=== PATIENT | female | born 1960 | race Caucasian/White ===

== ENCOUNTER 2017-10-19 00:55 | Inpatient (IN) | payer OTHER, MEDICAID ==
[2017-10-19] MEDS ORDERED: ONDANSETRON 4 MG INJ IV (03:30)
[2017-10-19 06:52] LABS: ADD MAN DIFF? NO
[2017-10-19 06:58] LABS: WHITE BLOOD COUNT 18.8 10^3/ul (4.8-10.8)
[2017-10-19 06:58] LABS: BASOPHIL # 0.1 10^3/ul (0.0-0.1); BASOPHILS % 0.3 % (0.0-2.0); EOSINOPHILS # 0.1 10^3/ul (0.0-0.5); EOSINOPHILS % 0.6 % (0.0-7.0); HEMATOCRIT 29.2 % (37.0-47.0); HEMOGLOBIN 9.2 g/dl (12.0-16.0); LYMPHOCYTES % 5.2 % (15.0-51.0); MEAN CORPUSCULAR HEMOGLOBIN 25.3 pg (29.0-33.0); MEAN CORPUSCULAR HGB CONC 31.5 g/dl (32.0-37.0); MEAN CORPUSCULAR VOLUME 80.2 fl (82.0-101.0); MEAN PLATELET VOLUME 9.1 fl (7.4-10.4); MONOCYTE # 1.4 10^3/ul (0.3-0.9); MONOCYTES % 7.5 % (0.0-11.0); NEUTROPHIL # 16.1 10^3/ul (1.6-7.5); NEUTROPHILS % 85.8 % (39.0-77.0); PLATELET COUNT 428 10^3/UL (140-415); RED BLOOD COUNT 3.64 10^6/ul (4.20-5.40); RED CELL DISTRIBUTION WIDTH 17.3 % (11.5-14.5)
[2017-10-19 07:19] LABS: ALANINE AMINOTRANSFERASE 20 IU/L (13-69); ALBUMIN 2.8 g/dl (3.3-4.9); ALKALINE PHOSPHATASE 79 IU/L (42-121); ANION GAP 9 (8-16); ASPARTATE AMINO TRANSFERASE 16 IU/L (15-46); BILIRUBIN,INDIRECT 0.3 mg/dl (0-1.1); BILIRUBIN,TOTAL 0.3 mg/dl (0.2-1.3); BLOOD UREA NITROGEN 17 mg/dl (7-20); CALCIUM 8.7 mg/dl (8.4-10.2); CARBON DIOXIDE 27 mmol/L (21-31); CHLORIDE 105 mmol/L (97-110); CREATININE 0.89 mg/dl (0.44-1.00); GLUCOSE 108 mg/dl (70-220); MAGNESIUM 1.8 mg/dl (1.7-2.5); PHOSPHORUS 3.6 mg/dl (2.5-4.9); POTASSIUM 4.4 mmol/L (3.5-5.1); SODIUM 137 mmol/L (135-144); TOTAL PROTEIN 6.8 g/dl (6.1-8.1)
[2017-10-19] MEDS: HEPARIN 5,000 UNIT/0.5 ML VIAL SC ×2 (08:40→21:31)
[2017-10-19] MEDS: AMLODIPINE 5 MG TAB PO (08:41)
[2017-10-19] MEDS: HYDROCODONE/APAP (5/325) TAB PO ×3 (08:42→21:42)
[2017-10-19] MEDS: SOD CHLORIDE 0.9% 1,000 ML IV (14:52)
[2017-10-19] MEDS ORDERED: IOHEXOL 14.3 MG(I)/ML (ADULT) BTL PO (15:00)
[2017-10-19] MEDS: BARIUM SULF 2% 450 ML BTL (BERRY SMOOTHIE) PO (15:00)
[2017-10-19 15:49] LABS: RETICULOCYTE COUNT # 0.044 X10^6 (0.020-0.110); RETICULOCYTE COUNT % 1.2 % (0.5-1.5)
[2017-10-19 15:49] LABS: RETICULOCYTE RBC 3.57
[2017-10-19 17:14] LABS: FOLATE 18.2 ng/ml (2.8-20.0)
[2017-10-19 19:40] LABS: OCCULT BLOOD STOOL NEGATIVE (NEGATIVE)
[2017-10-19] MEDS: SOD CHLORIDE 0.9% 100 ML (23:43)
[2017-10-19] MEDS: IOHEXOL 300MG/ML 150 ML BTL (23:43)
[2017-10-20] MEDS: HYDROCODONE/APAP (5/325) TAB PO ×4 (03:50→23:53)
[2017-10-20 06:03] LABS: ADD MAN DIFF? NO
[2017-10-20 06:09] LABS: ABNORMAL IP MESSAGE 1; BASOPHILS % 0.2 % (0.0-2.0); EOSINOPHILS # 0.1 10^3/ul (0.0-0.5); EOSINOPHILS % 0.7 % (0.0-7.0); HEMATOCRIT 25.9 % (37.0-47.0); HEMOGLOBIN 8.3 g/dl (12.0-16.0); LYMPHOCYTES % 5.4 % (15.0-51.0); MEAN CORPUSCULAR HEMOGLOBIN 25.7 pg (29.0-33.0); MEAN CORPUSCULAR VOLUME 80.2 fl (82.0-101.0); MEAN PLATELET VOLUME 9.1 fl (7.4-10.4); MONOCYTE # 1.5 10^3/ul (0.3-0.9); MONOCYTES % 8.3 % (0.0-11.0); NEUTROPHIL # 15.4 10^3/ul (1.6-7.5); NEUTROPHILS % 84.8 % (39.0-77.0); PLATELET COUNT 389 10^3/UL (140-415); RED BLOOD COUNT 3.23 10^6/ul (4.20-5.40); RED CELL DISTRIBUTION WIDTH 17.8 % (11.5-14.5)
[2017-10-20 06:09] LABS: WHITE BLOOD COUNT 18.2 10^3/ul (4.8-10.8)
[2017-10-20 06:23] LABS: POSITIVE DIFF @See below
[2017-10-20 06:44] LABS: ANION GAP 14 (8-16); BLOOD UREA NITROGEN 31 mg/dl (7-20); CALCIUM 8.5 mg/dl (8.4-10.2); CARBON DIOXIDE 24 mmol/L (21-31); CHLORIDE 100 mmol/L (97-110); CREATININE 1.58 mg/dl (0.44-1.00); GLUCOSE 106 mg/dl (70-220); POTASSIUM 4.3 mmol/L (3.5-5.1); SODIUM 134 mmol/L (135-144)
[2017-10-20] MEDS: SOD CHLORIDE 0.9% 1,000 ML IV ×2 (07:10→23:50)
[2017-10-20] MEDS: AMLODIPINE 5 MG TAB PO (07:59)
[2017-10-20] MEDS: HEPARIN 5,000 UNIT/0.5 ML VIAL SC (08:00)
[2017-10-20] MEDS ORDERED: HEPARIN 1000 UNITS/ML 10 ML INJ IV (11:30)
[2017-10-20] MEDS: LEVOFLOXACIN 500MG/D5W (PMX) 100 ML IVPB (12:29)
[2017-10-20 12:31] LABS: IRON 23 ug/dl (35-150)
[2017-10-20 12:40] LABS: % IRON SATURATION 12 % SAT (22-52); TOTAL IRON BINDING CAPACITY 198 ug/dl (241-421)
[2017-10-20 12:42] LABS: INR 1.25; PROTIME 15.9 Sec (11.9-14.9); PT RATIO 1.2
[2017-10-20 12:43] LABS: PARTIAL THROMBOPLASTIN TIME 36.5 Sec (25.0-35.0)
[2017-10-20 13:45] LABS: ADD UMIC NO; UR ASCORBIC ACID NEGATIVE (NEGATIVE); UR BILIRUBIN (Dip) NEGATIVE (NEGATIVE); UR BLOOD (Dip) NEGATIVE (NEGATIVE); UR CLARITY CLEAR (CLEAR); UR COLOR STRAW (YELLOW); UR GLUCOSE (Dip) NEGATIVE (NEGATIVE); UR KETONES (Dip) NEGATIVE (NEGATIVE); UR LEUKOCYTE ESTERASE (Dip) NEGATIVE Leu/ul (NEGATIVE); UR NITRITE (Dip) NEGATIVE (NEGATIVE); UR SPECIFIC GRAVITY (Dip) 1.011 (1.003-1.030); UR TOTAL PROTEIN (Dip) NEGATIVE (NEGATIVE); UR UROBILINOGEN (Dip) NEGATIVE (NEGATIVE)
[2017-10-20] MEDS: HEPARIN 1000 UNITS/ML 10 ML INJ IV (14:14)
[2017-10-20] MEDS: HEPARIN 25000 UNITS/250 ML 250 ML IV ×2 (14:15→21:16)
[2017-10-20 20:36] LABS: PARTIAL THROMBOPLASTIN TIME 68.3 Sec (25.0-35.0)
[2017-10-21] MEDS: SOD CHLORIDE 0.9% 1,000 ML IV ×3 (02:39→22:47)
[2017-10-21 03:31] LABS: ADD MAN DIFF? NO
[2017-10-21 03:47] LABS: ABNORMAL IP MESSAGE 1; BASOPHIL # 0.1 10^3/ul (0.0-0.1); BASOPHILS % 0.3 % (0.0-2.0); EOSINOPHILS # 0.3 10^3/ul (0.0-0.5); EOSINOPHILS % 1.2 % (0.0-7.0); HEMATOCRIT 27.6 % (37.0-47.0); HEMOGLOBIN 8.6 g/dl (12.0-16.0); LYMPHOCYTES # 1.4 10^3/ul (0.8-2.9); LYMPHOCYTES % 6.2 % (15.0-51.0); MEAN CORPUSCULAR HEMOGLOBIN 25.4 pg (29.0-33.0); MEAN CORPUSCULAR HGB CONC 31.2 g/dl (32.0-37.0); MEAN CORPUSCULAR VOLUME 81.4 fl (82.0-101.0); MEAN PLATELET VOLUME 8.9 fl (7.4-10.4); MONOCYTE # 1.6 10^3/ul (0.3-0.9); MONOCYTES % 7.3 % (0.0-11.0); NEUTROPHIL # 18.6 10^3/ul (1.6-7.5); NEUTROPHILS % 84.4 % (39.0-77.0); PLATELET COUNT 441 10^3/UL (140-415); RED BLOOD COUNT 3.39 10^6/ul (4.20-5.40); RED CELL DISTRIBUTION WIDTH 17.9 % (11.5-14.5)
[2017-10-21 03:49] LABS: POSITIVE DIFF @See below
[2017-10-21 03:53] LABS: PARTIAL THROMBOPLASTIN TIME 61.1 Sec (25.0-35.0)
[2017-10-21 03:58] LABS: ANION GAP 17 (8-16); BLOOD UREA NITROGEN 41 mg/dl (7-20); CALCIUM 8.8 mg/dl (8.4-10.2); CARBON DIOXIDE 21 mmol/L (21-31); CHLORIDE 101 mmol/L (97-110); CREATININE 2.64 mg/dl (0.44-1.00); GLUCOSE 101 mg/dl (70-220); POTASSIUM 4.6 mmol/L (3.5-5.1); SODIUM 134 mmol/L (135-144)
[2017-10-21] MEDS: HEPARIN 25000 UNITS/250 ML 250 ML IV ×4 (04:25→23:51)
[2017-10-21] MEDS: HYDROCODONE/APAP (5/325) TAB PO ×4 (04:27→22:46)
[2017-10-21] MEDS: AMLODIPINE 5 MG TAB PO (08:47)
[2017-10-21 11:21] LABS: PARTIAL THROMBOPLASTIN TIME 51.4 Sec (25.0-35.0)
[2017-10-21] MEDS: HEPARIN 1000 UNITS/ML 10 ML INJ IV (12:07)
[2017-10-21] MEDS: LEVOFLOXACIN 250MG/D5W (PMX) 50 ML IVPB (12:45)
[2017-10-21] MEDS: SOD FERRIC GLUC COMPLX 125 MG in SOD CHLORIDE 0.9% 100 ML IVPB (17:59)
[2017-10-21 18:20] LABS: PARTIAL THROMBOPLASTIN TIME 100.4 Sec (25.0-35.0)
[2017-10-21] MEDS: ACETYLCYSTEINE 600 MG CAP PO (20:28)
[2017-10-22 00:57] LABS: PARTIAL THROMBOPLASTIN TIME 108.1 Sec (25.0-35.0)
[2017-10-22] MEDS: HYDROCODONE/APAP (5/325) TAB PO ×5 (02:59→20:14)
[2017-10-22 08:06] LABS: ADD MAN DIFF? NO
[2017-10-22] MEDS: ACETYLCYSTEINE 600 MG CAP PO ×2 (08:09→20:10)
[2017-10-22] MEDS: AMLODIPINE 5 MG TAB PO (08:09)
[2017-10-22 08:13] LABS: WHITE BLOOD COUNT 22.1 10^3/ul (4.8-10.8)
[2017-10-22 08:13] LABS: ABNORMAL IP MESSAGE 1; BASOPHIL # 0.1 10^3/ul (0.0-0.1); BASOPHILS % 0.3 % (0.0-2.0); EOSINOPHILS # 0.1 10^3/ul (0.0-0.5); EOSINOPHILS % 0.4 % (0.0-7.0); HEMATOCRIT 27.1 % (37.0-47.0); HEMOGLOBIN 8.5 g/dl (12.0-16.0); LYMPHOCYTES # 1.1 10^3/ul (0.8-2.9); LYMPHOCYTES % 4.7 % (15.0-51.0); MEAN CORPUSCULAR HEMOGLOBIN 25.8 pg (29.0-33.0); MEAN CORPUSCULAR HGB CONC 31.4 g/dl (32.0-37.0); MEAN CORPUSCULAR VOLUME 82.1 fl (82.0-101.0); MONOCYTE # 1.5 10^3/ul (0.3-0.9); MONOCYTES % 6.8 % (0.0-11.0); NEUTROPHIL # 19.3 10^3/ul (1.6-7.5); PLATELET COUNT 469 10^3/UL (140-415); RED CELL DISTRIBUTION WIDTH 18.1 % (11.5-14.5)
[2017-10-22 08:17] LABS: POSITIVE DIFF @See below
[2017-10-22 08:38] LABS: MAGNESIUM 2.1 mg/dl (1.7-2.5)
[2017-10-22 08:38] LABS: PHOSPHORUS 5.3 mg/dl (2.5-4.9)
[2017-10-22 08:58] LABS: ALANINE AMINOTRANSFERASE 26 IU/L (13-69); ALBUMIN 2.6 g/dl (3.3-4.9); ALKALINE PHOSPHATASE 86 IU/L (42-121); ANION GAP 18 (8-16); ASPARTATE AMINO TRANSFERASE 16 IU/L (15-46); BLOOD UREA NITROGEN 41 mg/dl (7-20); CALCIUM 8.8 mg/dl (8.4-10.2); CARBON DIOXIDE 18 mmol/L (21-31); CHLORIDE 104 mmol/L (97-110); CREATININE 2.98 mg/dl (0.44-1.00); GLUCOSE 97 mg/dl (70-220); POTASSIUM 4.9 mmol/L (3.5-5.1); SODIUM 135 mmol/L (135-144); TOTAL PROTEIN 6.3 g/dl (6.1-8.1)
[2017-10-22 09:06] LABS: PARTIAL THROMBOPLASTIN TIME 100.3 Sec (25.0-35.0)
[2017-10-22] MEDS: SOD CHLORIDE 0.9% 1,000 ML IV ×2 (09:10→16:28)
[2017-10-22 09:40] LABS: OCCULT BLOOD STOOL NEGATIVE (NEGATIVE)
[2017-10-22 16:11] LABS: PARTIAL THROMBOPLASTIN TIME 76.2 Sec (25.0-35.0)
[2017-10-22] MEDS: HEPARIN 25000 UNITS/250 ML 250 ML IV (16:32)
[2017-10-23] MEDS: HYDROCODONE/APAP (5/325) TAB PO ×5 (00:07→20:49)
[2017-10-23 07:04] LABS: ADD MAN DIFF? NO
[2017-10-23 07:07] LABS: WHITE BLOOD COUNT 23.4 10^3/ul (4.8-10.8)
[2017-10-23 07:07] LABS: ABNORMAL IP MESSAGE 1; BASOPHIL # 0.1 10^3/ul (0.0-0.1); BASOPHILS % 0.2 % (0.0-2.0); EOSINOPHILS # 0.1 10^3/ul (0.0-0.5); EOSINOPHILS % 0.2 % (0.0-7.0); HEMATOCRIT 26.4 % (37.0-47.0); HEMOGLOBIN 8.4 g/dl (12.0-16.0); LYMPHOCYTES # 0.7 10^3/ul (0.8-2.9); LYMPHOCYTES % 3.1 % (15.0-51.0); MEAN CORPUSCULAR HEMOGLOBIN 25.8 pg (29.0-33.0); MEAN CORPUSCULAR HGB CONC 31.8 g/dl (32.0-37.0); MEAN CORPUSCULAR VOLUME 81.2 fl (82.0-101.0); MEAN PLATELET VOLUME 8.7 fl (7.4-10.4); MONOCYTE # 1.6 10^3/ul (0.3-0.9); MONOCYTES % 6.6 % (0.0-11.0); NEUTROPHIL # 20.8 10^3/ul (1.6-7.5); PLATELET COUNT 484 10^3/UL (140-415); RED BLOOD COUNT 3.25 10^6/ul (4.20-5.40); RED CELL DISTRIBUTION WIDTH 18.1 % (11.5-14.5)
[2017-10-23 07:08] LABS: POSITIVE DIFF @See below
[2017-10-23 07:28] LABS: PARTIAL THROMBOPLASTIN TIME 63.2 Sec (25.0-35.0); PHOSPHORUS 5.1 mg/dl (2.5-4.9)
[2017-10-23 07:28] LABS: MAGNESIUM 2.1 mg/dl (1.7-2.5)
[2017-10-23 08:04] LABS: ANION GAP 19 (8-16); BLOOD UREA NITROGEN 31 mg/dl (7-20); CALCIUM 9.2 mg/dl (8.4-10.2); CARBON DIOXIDE 18 mmol/L (21-31); CHLORIDE 108 mmol/L (97-110); CREATININE 1.97 mg/dl (0.44-1.00); GLUCOSE 121 mg/dl (70-220); POTASSIUM 5.2 mmol/L (3.5-5.1); SODIUM 140 mmol/L (135-144)
[2017-10-23] MEDS: ACETYLCYSTEINE 600 MG CAP PO ×2 (09:00→20:48)
[2017-10-23] MEDS: AMLODIPINE 5 MG TAB PO (09:00)
[2017-10-23] MEDS: METOPROLOL 5 MG INJ IV ×2 (13:38→20:49)
[2017-10-23] MEDS: HEPARIN 25000 UNITS/250 ML 250 ML IV (13:49)
[2017-10-23] MEDS: SOD CHLORIDE 0.9% 1,000 ML IV (18:30)
[2017-10-23] MEDS: NA POLYST SULFON 15 GM/60 ML BTL PO (20:48)
[2017-10-23 21:01] LABS: PARTIAL THROMBOPLASTIN TIME 82.1 Sec (25.0-35.0)
[2017-10-24] MEDS: HYDROCODONE/APAP (5/325) TAB PO ×4 (01:19→20:21)
[2017-10-24] MEDS: SOD CHLORIDE 0.9% 1,000 ML IV ×2 (01:25→20:31)
[2017-10-24 02:30] LABS: PARTIAL THROMBOPLASTIN TIME 80.9 Sec (25.0-35.0)
[2017-10-24 07:19] LABS: ALANINE AMINOTRANSFERASE 18 IU/L (13-69); ALBUMIN 2.6 g/dl (3.3-4.9); ALBUMIN/GLOBULIN RATIO 0.66; ALKALINE PHOSPHATASE 90 IU/L (42-121); ANION GAP 13 (8-16); ASPARTATE AMINO TRANSFERASE 18 IU/L (15-46); BILIRUBIN,INDIRECT 0.1 mg/dl (0-1.1); BILIRUBIN,TOTAL 0.1 mg/dl (0.2-1.3); BLOOD UREA NITROGEN 30 mg/dl (7-20); CALCIUM 9.2 mg/dl (8.4-10.2); CARBON DIOXIDE 22 mmol/L (21-31); CHLORIDE 111 mmol/L (97-110); CREATININE 1.77 mg/dl (0.44-1.00); GLUCOSE 116 mg/dl (70-220); POTASSIUM 4.4 mmol/L (3.5-5.1); SODIUM 142 mmol/L (135-144); TOTAL PROTEIN 6.5 g/dl (6.1-8.1)
[2017-10-24] MEDS: AMLODIPINE 5 MG TAB PO (08:42)
[2017-10-24] MEDS: LIDOCAINE 1% (MDV) 10 ML INJ (10:09)
[2017-10-24] MEDS: SOD CHLORIDE 0.9% 500 ML ×2 (10:10→10:54)
[2017-10-24] MEDS: IOHEXOL 300MG/ML 150 ML BTL (10:10)
[2017-10-24] MEDS: FENTAnyl 50 MCG/ML VIAL ×2 (10:54)
[2017-10-24] MEDS: MIDAZOLAM 1 MG/ML 2 ML INJ ×2 (10:54)
[2017-10-24 13:10] LABS: PARTIAL THROMBOPLASTIN TIME 36.5 Sec (25.0-35.0)
[2017-10-24] MEDS: HEPARIN 25000 UNITS/250 ML 250 ML IV (14:50)
[2017-10-24] MEDS: BISACODYL (EC) 5 MG TAB PO ×3 (17:39→21:11)
[2017-10-24 18:24] LABS: PARTIAL THROMBOPLASTIN TIME 69.2 Sec (25.0-35.0)
[2017-10-24] MEDS: PEG/ELECTROLYTES 4L BTL PO ×2 (20:20→21:11)
[2017-10-25] MEDS: HYDROCODONE/APAP (5/325) TAB PO ×4 (05:28→23:32)
[2017-10-25] MEDS: HEPARIN 25000 UNITS/250 ML 250 ML IV (05:40)
[2017-10-25] MEDS: AMLODIPINE 5 MG TAB PO (08:36)
[2017-10-25 08:44] LABS: ADD MAN DIFF? NO
[2017-10-25 08:48] LABS: ABNORMAL IP MESSAGE 1; BASOPHIL # 0.1 10^3/ul (0.0-0.1); BASOPHILS % 0.2 % (0.0-2.0); EOSINOPHILS % 0.1 % (0.0-7.0); HEMATOCRIT 22.6 % (37.0-47.0); HEMOGLOBIN 7.3 g/dl (12.0-16.0); LYMPHOCYTES # 1.2 10^3/ul (0.8-2.9); LYMPHOCYTES % 4.9 % (15.0-51.0); MEAN CORPUSCULAR HGB CONC 32.3 g/dl (32.0-37.0); MEAN CORPUSCULAR VOLUME 80.4 fl (82.0-101.0); MEAN PLATELET VOLUME 8.9 fl (7.4-10.4); MONOCYTE # 1.8 10^3/ul (0.3-0.9); MONOCYTES % 7.1 % (0.0-11.0); NEUTROPHIL # 21.5 10^3/ul (1.6-7.5); NEUTROPHILS % 86.8 % (39.0-77.0); PLATELET COUNT 436 10^3/UL (140-415); RED BLOOD COUNT 2.81 10^6/ul (4.20-5.40); RED CELL DISTRIBUTION WIDTH 18.6 % (11.5-14.5)
[2017-10-25 08:48] LABS: WHITE BLOOD COUNT 24.7 10^3/ul (4.8-10.8)
[2017-10-25 09:19] LABS: PHOSPHORUS 4.5 mg/dl (2.5-4.9)
[2017-10-25 09:19] LABS: MAGNESIUM 1.7 mg/dl (1.7-2.5)
[2017-10-25 09:30] LABS: ANION GAP 14 (8-16); BLOOD UREA NITROGEN 27 mg/dl (7-20); CALCIUM 8.5 mg/dl (8.4-10.2); CARBON DIOXIDE 22 mmol/L (21-31); CHLORIDE 110 mmol/L (97-110); CREATININE 1.52 mg/dl (0.44-1.00); GLUCOSE 112 mg/dl (70-220); SODIUM 143 mmol/L (135-144)
[2017-10-25] MEDS: POTASSIUM CHLORIDE 100 ML IVPB ×2 (13:30→15:37)
[2017-10-25] MEDS: PROPOFOL 40 ML (17:03)
[2017-10-25] MEDS: LUBIPROSTONE 24 MCG CAP PO (18:34)
[2017-10-25 18:53] LABS: HEMATOCRIT 23.6 % (37.0-47.0); HEMOGLOBIN 7.3 g/dl (12.0-16.0)
[2017-10-25] MEDS: SOD CHLORIDE 0.9% 1,000 ML IV (20:11)
[2017-10-26] MEDS: HYDROCODONE/APAP (5/325) TAB PO ×4 (07:56→23:50)
[2017-10-26] MEDS: AMLODIPINE 5 MG TAB PO (08:12)
[2017-10-26] MEDS: LUBIPROSTONE 24 MCG CAP PO ×2 (09:49→17:31)
[2017-10-26 11:54] LABS: ADD MAN DIFF? NO
[2017-10-26 12:16] LABS: BASOPHILS % 0.2 % (0.0-2.0); EOSINOPHILS # 0.1 10^3/ul (0.0-0.5); EOSINOPHILS % 0.2 % (0.0-7.0); HEMATOCRIT 23.9 % (37.0-47.0); HEMOGLOBIN 7.3 g/dl (12.0-16.0); LYMPHOCYTES # 1.1 10^3/ul (0.8-2.9); LYMPHOCYTES % 5.2 % (15.0-51.0); MEAN CORPUSCULAR HEMOGLOBIN 25.3 pg (29.0-33.0); MEAN CORPUSCULAR HGB CONC 30.5 g/dl (32.0-37.0); MEAN PLATELET VOLUME 8.8 fl (7.4-10.4); MONOCYTE # 1.4 10^3/ul (0.3-0.9); MONOCYTES % 6.7 % (0.0-11.0); NEUTROPHIL # 18.2 10^3/ul (1.6-7.5); NEUTROPHILS % 86.4 % (39.0-77.0); PLATELET COUNT 421 10^3/UL (140-415); RED BLOOD COUNT 2.88 10^6/ul (4.20-5.40); RED CELL DISTRIBUTION WIDTH 18.8 % (11.5-14.5)
[2017-10-26 12:16] LABS: WHITE BLOOD COUNT 21.1 10^3/ul (4.8-10.8)
[2017-10-26 12:21] LABS: ANION GAP 12 (8-16); BLOOD UREA NITROGEN 20 mg/dl (7-20); CALCIUM 8.5 mg/dl (8.4-10.2); CARBON DIOXIDE 23 mmol/L (21-31); CHLORIDE 110 mmol/L (97-110); CREATININE 1.28 mg/dl (0.44-1.00); GLUCOSE 125 mg/dl (70-220); SODIUM 142 mmol/L (135-144)
[2017-10-26] MEDS: POTASSIUM CHLORIDE 100 ML IVPB ×2 (14:50→16:40)
[2017-10-26] MEDS: SOD FERRIC GLUC COMPLX 125 MG in SOD CHLORIDE 0.9% 100 ML IVPB (16:40)
[2017-10-27] MEDS: HYDROCODONE/APAP (5/325) TAB PO ×4 (03:29→22:56)
[2017-10-27 06:19] LABS: ADD MAN DIFF? NO
[2017-10-27 06:24] LABS: BASOPHILS % 0.2 % (0.0-2.0); EOSINOPHILS # 0.2 10^3/ul (0.0-0.5); EOSINOPHILS % 0.9 % (0.0-7.0); HEMATOCRIT 23.1 % (37.0-47.0); HEMOGLOBIN 7.1 g/dl (12.0-16.0); LYMPHOCYTES # 1.2 10^3/ul (0.8-2.9); LYMPHOCYTES % 5.4 % (15.0-51.0); MEAN CORPUSCULAR HEMOGLOBIN 25.8 pg (29.0-33.0); MEAN CORPUSCULAR HGB CONC 30.7 g/dl (32.0-37.0); MONOCYTE # 1.2 10^3/ul (0.3-0.9); MONOCYTES % 5.9 % (0.0-11.0); NEUTROPHIL # 18.3 10^3/ul (1.6-7.5); NEUTROPHILS % 86.4 % (39.0-77.0); PLATELET COUNT 388 10^3/UL (140-415); RED BLOOD COUNT 2.75 10^6/ul (4.20-5.40); RED CELL DISTRIBUTION WIDTH 19.1 % (11.5-14.5)
[2017-10-27 06:24] LABS: WHITE BLOOD COUNT 21.1 10^3/ul (4.8-10.8)
[2017-10-27 06:59] LABS: ANION GAP 12 (8-16); BLOOD UREA NITROGEN 17 mg/dl (7-20); CALCIUM 8.6 mg/dl (8.4-10.2); CARBON DIOXIDE 24 mmol/L (21-31); CHLORIDE 112 mmol/L (97-110); CREATININE 1.13 mg/dl (0.44-1.00); GLUCOSE 103 mg/dl (70-220); POTASSIUM 3.7 mmol/L (3.5-5.1); SODIUM 144 mmol/L (135-144)
[2017-10-27] MEDS: morphine 2 MG INJ IV (07:09)
[2017-10-27] MEDS: LUBIPROSTONE 24 MCG CAP PO ×2 (08:19→18:03)
[2017-10-27] MEDS: AMLODIPINE 10 MG TAB PO (08:20)
[2017-10-27] MEDS: SOD FERRIC GLUC COMPLX 125 MG in SOD CHLORIDE 0.9% 100 ML IVPB (16:05)
[2017-10-27 18:00] LABS: AHG CROSSMATCH 1 1
[2017-10-28] MEDS: morphine 2 MG INJ IV (04:13)
[2017-10-28] MEDS: KETOROLAC 30 MG INJ IV (04:46)
[2017-10-28] MEDS ORDERED: hydrALAzine 20 MG INJ IV (05:00)
[2017-10-28] MEDS: LUBIPROSTONE 24 MCG CAP PO ×2 (08:00→17:37)
[2017-10-28] MEDS: AMLODIPINE 10 MG TAB PO (08:48)
[2017-10-28] MEDS: metroNIDAZOLE 500 MG TAB PO ×2 (13:44→21:15)
[2017-10-28] MEDS: PANTOPRAZOLE (EC) 40 MG TAB PO ×2 (13:44→17:34)
[2017-10-28] MEDS ORDERED: HEPARIN 1000 UNITS/ML 10 ML INJ IV ×2 (16:30)
[2017-10-28 16:49] LABS: ADD MAN DIFF? NO
[2017-10-28 16:54] LABS: BASOPHIL # 0.1 10^3/ul (0.0-0.1); BASOPHILS % 0.3 % (0.0-2.0); EOSINOPHILS # 0.3 10^3/ul (0.0-0.5); EOSINOPHILS % 1.5 % (0.0-7.0); HEMATOCRIT 26.4 % (37.0-47.0); HEMOGLOBIN 8.1 g/dl (12.0-16.0); LYMPHOCYTES % 4.8 % (15.0-51.0); MEAN CORPUSCULAR HEMOGLOBIN 25.8 pg (29.0-33.0); MEAN CORPUSCULAR HGB CONC 30.7 g/dl (32.0-37.0); MEAN CORPUSCULAR VOLUME 84.1 fl (82.0-101.0); MEAN PLATELET VOLUME 8.6 fl (7.4-10.4); MONOCYTE # 1.1 10^3/ul (0.3-0.9); MONOCYTES % 5.3 % (0.0-11.0); NEUTROPHIL # 18.4 10^3/ul (1.6-7.5); NEUTROPHILS % 86.9 % (39.0-77.0); PLATELET COUNT 347 10^3/UL (140-415); RED BLOOD COUNT 3.14 10^6/ul (4.20-5.40); RED CELL DISTRIBUTION WIDTH 18.7 % (11.5-14.5)
[2017-10-28 16:54] LABS: WHITE BLOOD COUNT 21.1 10^3/ul (4.8-10.8)
[2017-10-28 17:13] LABS: INR 1.21; PROTIME 15.5 Sec (11.9-14.9); PT RATIO 1.2
[2017-10-28 17:14] LABS: PARTIAL THROMBOPLASTIN TIME 37.1 Sec (25.0-35.0)
[2017-10-28] MEDS: HEPARIN 1000 UNITS/ML 10 ML INJ IV (17:29)
[2017-10-28] MEDS: SOD FERRIC GLUC COMPLX 125 MG in SOD CHLORIDE 0.9% 100 ML IVPB (17:34)
[2017-10-28] MEDS: HEPARIN 25000 UNITS/250 ML 250 ML IV (17:34)
[2017-10-28] MEDS: CLARITHROMYCIN 500 MG TAB PO (21:15)
[2017-10-28] MEDS: HYDROCODONE/APAP (5/325) TAB PO (21:19)
[2017-10-29] MEDS: DEXTROSE 5%-0.45% NACL 1,000 ML IV
[2017-10-29 00:21] LABS: PARTIAL THROMBOPLASTIN TIME 40.7 Sec (25.0-35.0)
[2017-10-29] MEDS: HEPARIN 25000 UNITS/250 ML 250 ML IV ×3 (01:59→23:30)
[2017-10-29] MEDS: metroNIDAZOLE 500 MG TAB PO ×3 (04:52→21:26)
[2017-10-29] MEDS: KETOROLAC 30 MG INJ IV (04:52)
[2017-10-29] MEDS: PANTOPRAZOLE (EC) 40 MG TAB PO ×2 (04:52→17:38)
[2017-10-29] MEDS ORDERED: PANTOPRAZOLE (EC) 40 MG TAB PO (06:00)
[2017-10-29] MEDS: LUBIPROSTONE 24 MCG CAP PO ×2 (08:00→17:38)
[2017-10-29] MEDS: AMLODIPINE 10 MG TAB PO (08:56)
[2017-10-29] MEDS: CLARITHROMYCIN 500 MG TAB PO ×2 (08:56→21:26)
[2017-10-29 09:02] LABS: ADD MAN DIFF? NO
[2017-10-29 09:12] LABS: BASOPHIL # 0.1 10^3/ul (0.0-0.1); BASOPHILS % 0.3 % (0.0-2.0); EOSINOPHILS # 0.3 10^3/ul (0.0-0.5); EOSINOPHILS % 1.4 % (0.0-7.0); HEMOGLOBIN 7.4 g/dl (12.0-16.0); MEAN CORPUSCULAR HEMOGLOBIN 25.9 pg (29.0-33.0); MEAN CORPUSCULAR HGB CONC 30.8 g/dl (32.0-37.0); MEAN CORPUSCULAR VOLUME 83.9 fl (82.0-101.0); MEAN PLATELET VOLUME 9.1 fl (7.4-10.4); MONOCYTE # 1.3 10^3/ul (0.3-0.9); MONOCYTES % 6.5 % (0.0-11.0); NEUTROPHIL # 17.6 10^3/ul (1.6-7.5); NEUTROPHILS % 85.6 % (39.0-77.0); PLATELET COUNT 362 10^3/UL (140-415); RED BLOOD COUNT 2.86 10^6/ul (4.20-5.40); RED CELL DISTRIBUTION WIDTH 18.6 % (11.5-14.5)
[2017-10-29 09:12] LABS: WHITE BLOOD COUNT 20.6 10^3/ul (4.8-10.8)
[2017-10-29] MEDS ORDERED: SOD CHLORIDE 0.9% 500 ML (09:32)
[2017-10-29] MEDS ORDERED: IODIXANOL LOCM 100 ML BTL (09:32)
[2017-10-29 09:44] LABS: MAGNESIUM 1.6 mg/dl (1.7-2.5)
[2017-10-29 09:44] LABS: PHOSPHORUS 3.2 mg/dl (2.5-4.9)
[2017-10-29 09:49] LABS: ANION GAP 12 (8-16); BLOOD UREA NITROGEN 23 mg/dl (7-20); CALCIUM 8.3 mg/dl (8.4-10.2); CARBON DIOXIDE 25 mmol/L (21-31); CHLORIDE 109 mmol/L (97-110); CREATININE 1.02 mg/dl (0.44-1.00); GLUCOSE 95 mg/dl (70-220); POTASSIUM 3.7 mmol/L (3.5-5.1); SODIUM 142 mmol/L (135-144)
[2017-10-29] MEDS: HYDROCODONE/APAP (5/325) TAB PO ×2 (12:44→18:59)
[2017-10-29] MEDS: MAGNESIUM SULFATE 2 GM/50 ML 50 ML IVPB (12:44)
[2017-10-29 22:51] LABS: INR 1.31; PROTIME 16.5 Sec (11.9-14.9); PT RATIO 1.3
[2017-10-29 22:53] LABS: PARTIAL THROMBOPLASTIN TIME 64.9 Sec (25.0-35.0)
[2017-10-30] MEDS: HYDROCODONE/APAP (5/325) TAB PO ×3 (01:55→23:26)
[2017-10-30] MEDS: metroNIDAZOLE 500 MG TAB PO ×3 (06:23→20:44)
[2017-10-30] MEDS: PANTOPRAZOLE (EC) 40 MG TAB PO ×2 (06:23→17:58)
[2017-10-30 07:29] LABS: ADD MAN DIFF? NO
[2017-10-30 07:31] LABS: WHITE BLOOD COUNT 19.1 10^3/ul (4.8-10.8)
[2017-10-30 07:31] LABS: BASOPHIL # 0.1 10^3/ul (0.0-0.1); BASOPHILS % 0.3 % (0.0-2.0); EOSINOPHILS # 0.3 10^3/ul (0.0-0.5); EOSINOPHILS % 1.7 % (0.0-7.0); HEMATOCRIT 26.1 % (37.0-47.0); LYMPHOCYTES # 1.2 10^3/ul (0.8-2.9); LYMPHOCYTES % 6.4 % (15.0-51.0); MEAN CORPUSCULAR HGB CONC 30.7 g/dl (32.0-37.0); MEAN CORPUSCULAR VOLUME 84.7 fl (82.0-101.0); MONOCYTE # 1.2 10^3/ul (0.3-0.9); MONOCYTES % 6.4 % (0.0-11.0); NEUTROPHIL # 16.1 10^3/ul (1.6-7.5); NEUTROPHILS % 84.3 % (39.0-77.0); PLATELET COUNT 423 10^3/UL (140-415); RED BLOOD COUNT 3.08 10^6/ul (4.20-5.40); RED CELL DISTRIBUTION WIDTH 18.6 % (11.5-14.5)
[2017-10-30] MEDS: LUBIPROSTONE 24 MCG CAP PO ×2 (08:00→18:01)
[2017-10-30 08:05] LABS: PARTIAL THROMBOPLASTIN TIME 86.2 Sec (25.0-35.0)
[2017-10-30] MEDS: AMLODIPINE 10 MG TAB PO (08:17)
[2017-10-30] MEDS: CLARITHROMYCIN 500 MG TAB PO ×2 (08:17→20:44)
[2017-10-30] MEDS: HEPARIN 25000 UNITS/250 ML 250 ML IV (11:31)
[2017-10-30 13:13] LABS: PARTIAL THROMBOPLASTIN TIME 117.2 Sec (25.0-35.0)
[2017-10-30] MEDS: BISACODYL (EC) 5 MG TAB PO (16:02)
[2017-10-30] MEDS: MAGNESIUM CITRATE 300 ML BTL PO (16:38)
[2017-10-30] MEDS: PEG/ELECTROLYTES 4L BTL PO (17:12)
[2017-10-31] MEDS: HYDROCODONE/APAP (5/325) TAB PO ×3 (05:30→20:41)
[2017-10-31] MEDS: metroNIDAZOLE 500 MG TAB PO ×3 (06:22→20:41)
[2017-10-31] MEDS: PANTOPRAZOLE (EC) 40 MG TAB PO ×2 (06:22→17:26)
[2017-10-31 08:34] LABS: ADD MAN DIFF? NO
[2017-10-31 08:38] LABS: WHITE BLOOD COUNT 19.8 10^3/ul (4.8-10.8)
[2017-10-31 08:38] LABS: BASOPHIL # 0.1 10^3/ul (0.0-0.1); BASOPHILS % 0.3 % (0.0-2.0); EOSINOPHILS # 0.1 10^3/ul (0.0-0.5); EOSINOPHILS % 0.7 % (0.0-7.0); HEMATOCRIT 24.4 % (37.0-47.0); HEMOGLOBIN 7.6 g/dl (12.0-16.0); LYMPHOCYTES # 1.2 10^3/ul (0.8-2.9); LYMPHOCYTES % 5.9 % (15.0-51.0); MEAN CORPUSCULAR HEMOGLOBIN 26.1 pg (29.0-33.0); MEAN CORPUSCULAR HGB CONC 31.1 g/dl (32.0-37.0); MEAN CORPUSCULAR VOLUME 83.8 fl (82.0-101.0); MEAN PLATELET VOLUME 8.7 fl (7.4-10.4); MONOCYTE # 1.4 10^3/ul (0.3-0.9); NEUTROPHIL # 16.9 10^3/ul (1.6-7.5); NEUTROPHILS % 85.1 % (39.0-77.0); PLATELET COUNT 411 10^3/UL (140-415); RED BLOOD COUNT 2.91 10^6/ul (4.20-5.40); RED CELL DISTRIBUTION WIDTH 18.6 % (11.5-14.5)
[2017-10-31 09:07] LABS: PARTIAL THROMBOPLASTIN TIME 33.2 Sec (25.0-35.0); PHOSPHORUS 3.5 mg/dl (2.5-4.9)
[2017-10-31 09:08] LABS: ANION GAP 14 (8-16); BLOOD UREA NITROGEN 15 mg/dl (7-20); CALCIUM 7.9 mg/dl (8.4-10.2); CARBON DIOXIDE 25 mmol/L (21-31); CHLORIDE 106 mmol/L (97-110); CREATININE 0.91 mg/dl (0.44-1.00); GLUCOSE 99 mg/dl (70-220); POTASSIUM 3.1 mmol/L (3.5-5.1); SODIUM 142 mmol/L (135-144)
[2017-10-31] MEDS: CLARITHROMYCIN 500 MG TAB PO ×2 (09:23→20:42)
[2017-10-31] MEDS: LUBIPROSTONE 24 MCG CAP PO ×2 (09:23→17:26)
[2017-10-31] MEDS: AMLODIPINE 10 MG TAB PO (09:23)
[2017-10-31] MEDS ORDERED: POTASSIUM CHLORIDE 50 ML IVPB (09:30)
[2017-10-31] MEDS: PROPOFOL 40 ML (10:46)
[2017-10-31] MEDS: LIDOCAINE 100 MG SYRINGE (10:46)
[2017-10-31] MEDS: POTASSIUM CHLORIDE 100 ML IVPB ×2 (12:08→13:18)
[2017-10-31] MEDS: HEPARIN 25000 UNITS/250 ML 250 ML IV (13:24)
[2017-10-31 15:29] LABS: PARTIAL THROMBOPLASTIN TIME 61.2 Sec (25.0-35.0)
[2017-10-31] MEDS: APIXABAN 5 MG TABLET PO (20:42)
[2017-11-01] MEDS: DIPHENHYDRAMINE 25 MG CAP PO (00:09)
[2017-11-01] MEDS: HYDROCODONE/APAP (5/325) TAB PO ×5 (01:33→23:29)
[2017-11-01 06:14] LABS: ADD MAN DIFF? NO
[2017-11-01] MEDS: PANTOPRAZOLE (EC) 40 MG TAB PO ×2 (06:14→18:27)
[2017-11-01] MEDS: metroNIDAZOLE 500 MG TAB PO ×3 (06:14→21:19)
[2017-11-01 06:21] LABS: BASOPHIL # 0.1 10^3/ul (0.0-0.1); BASOPHILS % 0.3 % (0.0-2.0); EOSINOPHILS # 0.2 10^3/ul (0.0-0.5); HEMATOCRIT 24.2 % (37.0-47.0); HEMOGLOBIN 7.6 g/dl (12.0-16.0); LYMPHOCYTES # 1.2 10^3/ul (0.8-2.9); LYMPHOCYTES % 6.2 % (15.0-51.0); MEAN CORPUSCULAR HEMOGLOBIN 26.6 pg (29.0-33.0); MEAN CORPUSCULAR HGB CONC 31.4 g/dl (32.0-37.0); MEAN CORPUSCULAR VOLUME 84.6 fl (82.0-101.0); MONOCYTE # 1.4 10^3/ul (0.3-0.9); MONOCYTES % 7.2 % (0.0-11.0); NEUTROPHIL # 16.6 10^3/ul (1.6-7.5); NEUTROPHILS % 84.4 % (39.0-77.0); PLATELET COUNT 422 10^3/UL (140-415); RED BLOOD COUNT 2.86 10^6/ul (4.20-5.40); RED CELL DISTRIBUTION WIDTH 18.8 % (11.5-14.5)
[2017-11-01 06:21] LABS: WHITE BLOOD COUNT 19.6 10^3/ul (4.8-10.8)
[2017-11-01 06:40] LABS: ANION GAP 13 (8-16); BLOOD UREA NITROGEN 15 mg/dl (7-20); CARBON DIOXIDE 26 mmol/L (21-31); CHLORIDE 105 mmol/L (97-110); CREATININE 0.96 mg/dl (0.44-1.00); GLUCOSE 104 mg/dl (70-220); POTASSIUM 3.7 mmol/L (3.5-5.1); SODIUM 140 mmol/L (135-144)
[2017-11-01] MEDS: LUBIPROSTONE 24 MCG CAP PO ×3 (08:00→18:27)
[2017-11-01] MEDS: CLARITHROMYCIN 500 MG TAB PO ×2 (09:19→21:19)
[2017-11-01] MEDS: AMLODIPINE 10 MG TAB PO (09:19)
[2017-11-01] MEDS: APIXABAN 5 MG TABLET PO ×2 (09:20→21:19)
[2017-11-02] MEDS: metroNIDAZOLE 500 MG TAB PO ×3 (06:40→21:29)
[2017-11-02] MEDS: PANTOPRAZOLE (EC) 40 MG TAB PO ×2 (06:40→17:07)
[2017-11-02 06:42] LABS: ADD MAN DIFF? NO
[2017-11-02 06:47] LABS: WHITE BLOOD COUNT 18.4 10^3/ul (4.8-10.8)
[2017-11-02 06:47] LABS: BASOPHIL # 0.1 10^3/ul (0.0-0.1); BASOPHILS % 0.3 % (0.0-2.0); EOSINOPHILS # 0.2 10^3/ul (0.0-0.5); EOSINOPHILS % 1.2 % (0.0-7.0); HEMATOCRIT 24.4 % (37.0-47.0); HEMOGLOBIN 7.6 g/dl (12.0-16.0); LYMPHOCYTES # 0.9 10^3/ul (0.8-2.9); LYMPHOCYTES % 4.8 % (15.0-51.0); MEAN CORPUSCULAR HEMOGLOBIN 26.3 pg (29.0-33.0); MEAN CORPUSCULAR HGB CONC 31.1 g/dl (32.0-37.0); MEAN CORPUSCULAR VOLUME 84.4 fl (82.0-101.0); MEAN PLATELET VOLUME 9.2 fl (7.4-10.4); MONOCYTE # 1.4 10^3/ul (0.3-0.9); MONOCYTES % 7.7 % (0.0-11.0); NEUTROPHIL # 15.7 10^3/ul (1.6-7.5); NEUTROPHILS % 85.1 % (39.0-77.0); PLATELET COUNT 423 10^3/UL (140-415); RED BLOOD COUNT 2.89 10^6/ul (4.20-5.40); RED CELL DISTRIBUTION WIDTH 18.9 % (11.5-14.5)
[2017-11-02] MEDS: LUBIPROSTONE 24 MCG CAP PO ×2 (08:00→17:07)
[2017-11-02] MEDS: APIXABAN 5 MG TABLET PO ×2 (09:28→20:12)
[2017-11-02] MEDS: CLARITHROMYCIN 500 MG TAB PO ×2 (09:28→20:13)
[2017-11-02] MEDS: AMLODIPINE 10 MG TAB PO (09:28)
[2017-11-02] MEDS: HYDROCODONE/APAP (5/325) TAB PO ×3 (09:37→18:46)
[2017-11-02] MEDS: SOD FERRIC GLUC COMPLX 125 MG in SOD CHLORIDE 0.9% 100 ML IVPB (16:49)
[2017-11-03] MEDS: HYDROCODONE/APAP (5/325) TAB PO ×6 (00:07→23:16)
[2017-11-03] MEDS: metroNIDAZOLE 500 MG TAB PO ×3 (06:21→21:38)
[2017-11-03] MEDS: PANTOPRAZOLE (EC) 40 MG TAB PO ×2 (06:21→17:08)
[2017-11-03 07:29] LABS: ADD MAN DIFF? NO
[2017-11-03 07:33] LABS: ABNORMAL IP MESSAGE 1; BASOPHILS % 0.2 % (0.0-2.0); EOSINOPHILS # 0.2 10^3/ul (0.0-0.5); EOSINOPHILS % 0.7 % (0.0-7.0); HEMATOCRIT 24.9 % (37.0-47.0); HEMOGLOBIN 7.7 g/dl (12.0-16.0); LYMPHOCYTES % 4.4 % (15.0-51.0); MEAN CORPUSCULAR HGB CONC 30.9 g/dl (32.0-37.0); MEAN CORPUSCULAR VOLUME 84.1 fl (82.0-101.0); MONOCYTE # 1.7 10^3/ul (0.3-0.9); MONOCYTES % 7.9 % (0.0-11.0); NEUTROPHIL # 18.3 10^3/ul (1.6-7.5); NEUTROPHILS % 85.9 % (39.0-77.0); PLATELET COUNT 462 10^3/UL (140-415); RED BLOOD COUNT 2.96 10^6/ul (4.20-5.40)
[2017-11-03 07:33] LABS: WHITE BLOOD COUNT 21.4 10^3/ul (4.8-10.8)
[2017-11-03 07:35] LABS: POSITIVE DIFF @See below
[2017-11-03 07:53] LABS: ANION GAP 12 (8-16); BLOOD UREA NITROGEN 11 mg/dl (7-20); CARBON DIOXIDE 24 mmol/L (21-31); CHLORIDE 104 mmol/L (97-110); CREATININE 0.84 mg/dl (0.44-1.00); GLUCOSE 104 mg/dl (70-220); POTASSIUM 3.4 mmol/L (3.5-5.1); SODIUM 137 mmol/L (135-144)
[2017-11-03] MEDS: APIXABAN 5 MG TABLET PO ×2 (08:59→21:38)
[2017-11-03] MEDS: CLARITHROMYCIN 500 MG TAB PO ×2 (08:59→21:37)
[2017-11-03] MEDS: AMLODIPINE 10 MG TAB PO (08:59)
[2017-11-03] MEDS: LUBIPROSTONE 24 MCG CAP PO ×2 (11:25→17:07)
[2017-11-03] MEDS ORDERED: POTASSIUM CHLORIDE 20 MEQ POWDER FOR ORAL SOLN PO (11:30)
[2017-11-03] MEDS: POTASSIUM CHLORIDE (SR) 20 MEQ TAB PO (11:49)
[2017-11-03] MEDS: SOD FERRIC GLUC COMPLX 125 MG in SOD CHLORIDE 0.9% 100 ML IVPB (17:08)
[2017-11-04] MEDS: metroNIDAZOLE 500 MG TAB PO ×3 (05:20→21:14)
[2017-11-04] MEDS: HYDROCODONE/APAP (5/325) TAB PO ×5 (05:20→23:03)
[2017-11-04] MEDS: PANTOPRAZOLE (EC) 40 MG TAB PO ×2 (05:20→18:06)
[2017-11-04 06:02] LABS: ADD MAN DIFF? NO
[2017-11-04 06:08] LABS: WHITE BLOOD COUNT 23.5 10^3/ul (4.8-10.8)
[2017-11-04 06:08] LABS: ABNORMAL IP MESSAGE 1; BASOPHIL # 0.1 10^3/ul (0.0-0.1); BASOPHILS % 0.3 % (0.0-2.0); EOSINOPHILS # 0.1 10^3/ul (0.0-0.5); EOSINOPHILS % 0.5 % (0.0-7.0); HEMATOCRIT 25.5 % (37.0-47.0); LYMPHOCYTES % 4.2 % (15.0-51.0); MEAN CORPUSCULAR HEMOGLOBIN 26.2 pg (29.0-33.0); MEAN CORPUSCULAR HGB CONC 31.4 g/dl (32.0-37.0); MEAN CORPUSCULAR VOLUME 83.6 fl (82.0-101.0); MEAN PLATELET VOLUME 9.1 fl (7.4-10.4); MONOCYTE # 1.6 10^3/ul (0.3-0.9); MONOCYTES % 6.9 % (0.0-11.0); NEUTROPHIL # 20.5 10^3/ul (1.6-7.5); NEUTROPHILS % 87.1 % (39.0-77.0); PLATELET COUNT 492 10^3/UL (140-415); RED BLOOD COUNT 3.05 10^6/ul (4.20-5.40); RED CELL DISTRIBUTION WIDTH 19.3 % (11.5-14.5)
[2017-11-04 06:41] LABS: ANION GAP 11 (8-16); BLOOD UREA NITROGEN 10 mg/dl (7-20); CALCIUM 8.3 mg/dl (8.4-10.2); CARBON DIOXIDE 27 mmol/L (21-31); CHLORIDE 104 mmol/L (97-110); CREATININE 0.85 mg/dl (0.44-1.00); GLUCOSE 98 mg/dl (70-220); POTASSIUM 3.6 mmol/L (3.5-5.1); SODIUM 138 mmol/L (135-144)
[2017-11-04 07:01] LABS: POSITIVE DIFF @See below
[2017-11-04] MEDS: APIXABAN 5 MG TABLET PO ×2 (08:38→21:14)
[2017-11-04] MEDS: AMLODIPINE 10 MG TAB PO (08:38)
[2017-11-04] MEDS: CLARITHROMYCIN 500 MG TAB PO ×2 (08:38→21:14)
[2017-11-04] MEDS: LUBIPROSTONE 24 MCG CAP PO ×2 (10:51→18:06)
[2017-11-04] MEDS: SOD FERRIC GLUC COMPLX 125 MG in SOD CHLORIDE 0.9% 100 ML IVPB (18:06)
[2017-11-05] MEDS: HYDROCODONE/APAP (5/325) TAB PO ×5 (03:57→23:07)
[2017-11-05] MEDS: metroNIDAZOLE 500 MG TAB PO ×3 (05:54→21:06)
[2017-11-05] MEDS: PANTOPRAZOLE (EC) 40 MG TAB PO ×2 (05:54→18:15)
[2017-11-05] MEDS: LUBIPROSTONE 24 MCG CAP PO ×2 (08:36→18:05)
[2017-11-05] MEDS: CLARITHROMYCIN 500 MG TAB PO ×2 (08:36→21:06)
[2017-11-05] MEDS: APIXABAN 5 MG TABLET PO ×2 (08:37→21:07)
[2017-11-05] MEDS: AMLODIPINE 10 MG TAB PO (08:37)
[2017-11-05] MEDS ORDERED: morphine LIQ (10 MG/5 ML) CUP PO (16:00)
[2017-11-05 16:34] LABS: ADD UMIC YES; UR ASCORBIC ACID NEGATIVE (NEGATIVE); UR BILIRUBIN (Dip) NEGATIVE (NEGATIVE); UR BLOOD (Dip) NEGATIVE (NEGATIVE); UR CLARITY CLEAR (CLEAR); UR COLOR YELLOW (YELLOW); UR GLUCOSE (Dip) NEGATIVE (NEGATIVE); UR KETONES (Dip) NEGATIVE (NEGATIVE); UR LEUKOCYTE ESTERASE (Dip) TRACE Leu/ul (NEGATIVE); UR NITRITE (Dip) NEGATIVE (NEGATIVE); UR NONSQUAMOUS EPITHELIAL CELL 1 /HPF (NONE SEEN); UR RBC 2 /HPF (0-5); UR SQUAMOUS EPITHELIAL CELL MODERATE /HPF (FEW); UR TOTAL PROTEIN (Dip) NEGATIVE (NEGATIVE); UR UROBILINOGEN (Dip) NEGATIVE (NEGATIVE); UR WBC 4 /HPF (0-5)
[2017-11-06] MEDS: HYDROCODONE/APAP (5/325) TAB PO ×5 (04:27→23:16)
[2017-11-06] MEDS: metroNIDAZOLE 500 MG TAB PO ×3 (05:19→21:53)
[2017-11-06] MEDS: PANTOPRAZOLE (EC) 40 MG TAB PO ×2 (05:19→18:20)
[2017-11-06] MEDS: LUBIPROSTONE 24 MCG CAP PO ×2 (08:00→18:25)
[2017-11-06 09:09] LABS: ADD MAN DIFF? NO
[2017-11-06 09:14] LABS: WHITE BLOOD COUNT 20.3 10^3/ul (4.8-10.8)
[2017-11-06 09:14] LABS: ABNORMAL IP MESSAGE 1; BASOPHIL # 0.1 10^3/ul (0.0-0.1); BASOPHILS % 0.2 % (0.0-2.0); EOSINOPHILS # 0.1 10^3/ul (0.0-0.5); EOSINOPHILS % 0.3 % (0.0-7.0); HEMATOCRIT 24.7 % (37.0-47.0); HEMOGLOBIN 7.7 g/dl (12.0-16.0); LYMPHOCYTES # 0.9 10^3/ul (0.8-2.9); LYMPHOCYTES % 4.5 % (15.0-51.0); MEAN CORPUSCULAR HEMOGLOBIN 26.1 pg (29.0-33.0); MEAN CORPUSCULAR HGB CONC 31.2 g/dl (32.0-37.0); MEAN CORPUSCULAR VOLUME 83.7 fl (82.0-101.0); MONOCYTE # 1.6 10^3/ul (0.3-0.9); MONOCYTES % 7.7 % (0.0-11.0); NEUTROPHIL # 17.6 10^3/ul (1.6-7.5); NEUTROPHILS % 86.7 % (39.0-77.0); PLATELET COUNT 517 10^3/UL (140-415); RED BLOOD COUNT 2.95 10^6/ul (4.20-5.40); RED CELL DISTRIBUTION WIDTH 19.9 % (11.5-14.5)
[2017-11-06] MEDS: CLARITHROMYCIN 500 MG TAB PO ×2 (09:33→20:33)
[2017-11-06] MEDS: AMLODIPINE 10 MG TAB PO (09:33)
[2017-11-06] MEDS: APIXABAN 5 MG TABLET PO ×2 (09:33→20:34)
[2017-11-06 09:36] LABS: MAGNESIUM 1.8 mg/dl (1.7-2.5)
[2017-11-06 09:36] LABS: PHOSPHORUS 3.6 mg/dl (2.5-4.9)
[2017-11-06 09:41] LABS: ANION GAP 13 (8-16); BLOOD UREA NITROGEN 12 mg/dl (7-20); CALCIUM 8.1 mg/dl (8.4-10.2); CARBON DIOXIDE 25 mmol/L (21-31); CHLORIDE 104 mmol/L (97-110); GLUCOSE 90 mg/dl (70-220); POTASSIUM 3.8 mmol/L (3.5-5.1); SODIUM 138 mmol/L (135-144)
[2017-11-06] MEDS: FLUCONAZOLE 100 MG TAB PO (13:52)
[2017-11-06] MEDS: SOD CHLORIDE 0.45% 1,000 ML IV (13:53)
[2017-11-07] MEDS: HYDROCODONE/APAP (5/325) TAB PO ×4 (05:06→14:27)
[2017-11-07] MEDS: PANTOPRAZOLE (EC) 40 MG TAB PO ×2 (05:46→18:22)
[2017-11-07] MEDS: metroNIDAZOLE 500 MG TAB PO ×3 (05:46→21:39)
[2017-11-07] MEDS: SOD CHLORIDE 0.45% 1,000 ML IV ×2 (07:00→08:43)
[2017-11-07 07:55] LABS: ADD MAN DIFF? NO
[2017-11-07 07:58] LABS: BASOPHILS % 0.2 % (0.0-2.0); EOSINOPHILS # 0.1 10^3/ul (0.0-0.5); EOSINOPHILS % 0.4 % (0.0-7.0); HEMATOCRIT 24.9 % (37.0-47.0); HEMOGLOBIN 7.9 g/dl (12.0-16.0); LYMPHOCYTES # 0.9 10^3/ul (0.8-2.9); LYMPHOCYTES % 4.7 % (15.0-51.0); MEAN CORPUSCULAR HEMOGLOBIN 26.7 pg (29.0-33.0); MEAN CORPUSCULAR HGB CONC 31.7 g/dl (32.0-37.0); MEAN CORPUSCULAR VOLUME 84.1 fl (82.0-101.0); MEAN PLATELET VOLUME 8.7 fl (7.4-10.4); MONOCYTE # 1.4 10^3/ul (0.3-0.9); MONOCYTES % 7.4 % (0.0-11.0); NEUTROPHIL # 16.5 10^3/ul (1.6-7.5); NEUTROPHILS % 86.6 % (39.0-77.0); PLATELET COUNT 506 10^3/UL (140-415); RED BLOOD COUNT 2.96 10^6/ul (4.20-5.40); RED CELL DISTRIBUTION WIDTH 19.7 % (11.5-14.5)
[2017-11-07 08:20] LABS: MAGNESIUM 1.7 mg/dl (1.7-2.5)
[2017-11-07 08:20] LABS: PHOSPHORUS 3.2 mg/dl (2.5-4.9)
[2017-11-07 08:36] LABS: ANION GAP 15 (8-16); BLOOD UREA NITROGEN 11 mg/dl (7-20); CALCIUM 7.9 mg/dl (8.4-10.2); CARBON DIOXIDE 23 mmol/L (21-31); CHLORIDE 104 mmol/L (97-110); CREATININE 0.76 mg/dl (0.44-1.00); GLUCOSE 91 mg/dl (70-220); POTASSIUM 3.6 mmol/L (3.5-5.1); SODIUM 138 mmol/L (135-144)
[2017-11-07] MEDS: BISACODYL (EC) 5 MG TAB PO (08:42)
[2017-11-07] MEDS: CLARITHROMYCIN 500 MG TAB PO ×2 (08:42→20:06)
[2017-11-07] MEDS: LUBIPROSTONE 24 MCG CAP PO ×2 (08:42→18:05)
[2017-11-07] MEDS: FLUCONAZOLE 100 MG TAB PO (08:42)
[2017-11-07] MEDS: APIXABAN 5 MG TABLET PO ×2 (08:43→20:06)
[2017-11-07] MEDS: DOCUSATE SODIUM 100 MG CAP PO (08:43)
[2017-11-07] MEDS: AMLODIPINE 10 MG TAB PO (08:43)
[2017-11-07] MEDS: SOD CHLORIDE 0.9% 500 ML IV (10:08)
[2017-11-07] MEDS: METOPROLOL 25 MG TAB PO (20:07)
[2017-11-07] MEDS: HYDROCODONE/APAP (10/325) TAB NGT (20:07)
[2017-11-07] MEDS ORDERED: METOPROLOL 25 MG TAB PO (21:00)
[2017-11-08] MEDS: HYDROCODONE/APAP (10/325) TAB NGT ×4 (00:34→22:54)
[2017-11-08] MEDS: ACETAMINOPHEN 325 MG TAB PO (04:18)
[2017-11-08] MEDS: metroNIDAZOLE 500 MG TAB PO ×3 (05:31→21:36)
[2017-11-08] MEDS: PANTOPRAZOLE (EC) 40 MG TAB PO ×2 (05:31→17:42)
[2017-11-08] MEDS: CLARITHROMYCIN 500 MG TAB PO ×2 (09:11→21:46)
[2017-11-08] MEDS: APIXABAN 5 MG TABLET PO ×2 (09:12→21:36)
[2017-11-08] MEDS: FLUCONAZOLE 100 MG TAB PO (09:12)
[2017-11-08] MEDS: METOPROLOL 25 MG TAB PO ×2 (09:13→21:37)
[2017-11-08] MEDS: AMLODIPINE 10 MG TAB PO (09:13)
[2017-11-08] MEDS: LUBIPROSTONE 24 MCG CAP PO ×2 (14:19→18:13)
[2017-11-08] MEDS: SOD CHLORIDE 0.45% 1,000 ML IV (23:00)
== END 2017-11-09 00:40 | disposition home health service (06) | DRG 253 ==
LOC: MS4 00:55
PROC: 0DB68ZX Excision of Stomach, Via Natural or Artificial Opening Endoscopic, Diagnostic (ICD-10-PCS; principal; 2017-10-25 15:30)
PROC: 06H03DZ Insertion of Intraluminal Device into Inferior Vena Cava, Percutaneous Approach (ICD-10-PCS; 2017-10-25 15:30)
PROC: 0DJD8ZZ Inspection of Lower Intestinal Tract, Via Natural or Artificial Opening Endoscopic (ICD-10-PCS; 2017-10-25 15:30)
PROC: 0DJD8ZZ Inspection of Lower Intestinal Tract, Via Natural or Artificial Opening Endoscopic (ICD-10-PCS; 2017-10-25 15:30)
PROC: 0TH533Z Insertion of Infusion Device into Kidney, Percutaneous Approach (ICD-10-PCS; 2017-10-25 15:30)
PROC: 30233N1 Transfusion of Nonautologous Red Blood Cells into Peripheral Vein, Percutaneous Approach (ICD-10-PCS; 2017-10-25 15:30)
DX: I82.411 Acute embolism and thrombosis of right femoral vein (principal); N17.9 Acute kidney failure, unspecified; N13.30 Unspecified hydronephrosis; N39.0 Urinary tract infection, site not specified; R65.10 Systemic inflammatory response syndrome (SIRS) of non-infectious origin without acute organ dysfunction; N13.1 Hydronephrosis with ureteral stricture, not elsewhere classified; K31.0 Acute dilatation of stomach; K22.10 Ulcer of esophagus without bleeding; A04.8 Other specified bacterial intestinal infections; I47.1 Supraventricular tachycardia; C55 Malignant neoplasm of uterus, part unspecified; K76.0 Fatty (change of) liver, not elsewhere classified; K44.9 Diaphragmatic hernia without obstruction or gangrene; K59.00 Constipation, unspecified; K57.30 Diverticulosis of large intestine without perforation or abscess without bleeding; E66.3 Overweight; E87.5 Hyperkalemia; N18.9 Chronic kidney disease, unspecified; R19.00 Intra-abdominal and pelvic swelling, mass and lump, unspecified site; D50.9 Iron deficiency anemia, unspecified; D63.8 Anemia in other chronic diseases classified elsewhere; I12.9 Hypertensive chronic kidney disease with stage 1 through stage 4 chronic kidney disease, or unspecified chronic kidney disease; Z90.722 Acquired absence of ovaries, bilateral; Z91.14 Patient's other noncompliance with medication regimen; Z92.21 Personal history of antineoplastic chemotherapy; Z68.28 Body mass index [BMI] 28.0-28.9, adult
CPT/HCPCS: 36430; 71045; 74177; 74475; 75940; 76942; 80048; 80053; 81001; 81003; 82270; 82607; 82728; 82746; 83540; 83605; 83735; 84100; 84443; 85014; 85018; 85025; 85045; 85610; 85730; 86850; 86870; 86900; 86901; 86902; 86920; 87040; 87081; 87086; 88305; 88312; 93306

== ENCOUNTER 2017-11-24 23:56 | Inpatient (IN) | payer OTHER, MEDICAID ==
[2017-11-25] MEDS: ACETAMINOPHEN 325 MG TAB PO (00:26)
[2017-11-25] MEDS: SODIUM CHLORIDE 0.9% 1L BAG IV* (00:26)
[2017-11-25 00:30] LABS: ADD MAN DIFF? NO
[2017-11-25 00:40] LABS: ABNORMAL IP MESSAGE 1; BASOPHIL # 0.1 10^3/ul (0.0-0.1); BASOPHILS % 0.4 % (0.0-2.0); EOSINOPHILS # 0.3 10^3/ul (0.0-0.5); EOSINOPHILS % 1.1 % (0.0-7.0); HEMATOCRIT 25.7 % (37.0-47.0); LYMPHOCYTES # 1.5 10^3/ul (0.8-2.9); LYMPHOCYTES % 6.1 % (15.0-51.0); MEAN CORPUSCULAR HEMOGLOBIN 26.7 pg (29.0-33.0); MEAN CORPUSCULAR HGB CONC 31.1 g/dl (32.0-37.0); MEAN CORPUSCULAR VOLUME 85.7 fl (82.0-101.0); MEAN PLATELET VOLUME 8.7 fl (7.4-10.4); MONOCYTE # 1.7 10^3/ul (0.3-0.9); MONOCYTES % 7.1 % (0.0-11.0); NEUTROPHIL # 20.6 10^3/ul (1.6-7.5); NEUTROPHILS % 84.5 % (39.0-77.0); PLATELET COUNT 608 10^3/UL (140-415); RED CELL DISTRIBUTION WIDTH 20.2 % (11.5-14.5)
[2017-11-25 00:40] LABS: WHITE BLOOD COUNT 24.4 10^3/ul (4.8-10.8)
[2017-11-25 00:48] LABS: ADD UMIC YES; UR AMORPHOUS CRYSTAL FEW /HPF (NONE SEEN); UR ASCORBIC ACID NEGATIVE (NEGATIVE); UR BACTERIA FEW /HPF (NONE SEEN); UR BILIRUBIN (Dip) NEGATIVE (NEGATIVE); UR BLOOD (Dip) 2+ mg/dL (NEGATIVE); UR CLARITY CLOUDY (CLEAR); UR COLOR YELLOW (YELLOW); UR GLUCOSE (Dip) 1+ mg/dL (NEGATIVE); UR KETONES (Dip) NEGATIVE (NEGATIVE); UR LEUKOCYTE ESTERASE (Dip) 3+ Leu/ul (NEGATIVE); UR NITRITE (Dip) NEGATIVE (NEGATIVE); UR RBC 106 /HPF (0-5); UR SPECIFIC GRAVITY (Dip) 1.011 (1.003-1.030); UR TOTAL PROTEIN (Dip) 3+ mg/dl (NEGATIVE); UR UROBILINOGEN (Dip) NEGATIVE (NEGATIVE); UR WBC 135 /HPF (0-5)
[2017-11-25] MEDS: ONDANSETRON 4 MG INJ IV (00:49)
[2017-11-25] MEDS: morphine 4 MG/ML VIAL IV (00:49)
[2017-11-25 00:55] LABS: POSITIVE DIFF @See below
[2017-11-25 00:59] LABS: LACTIC ACID 3.8 mmol/L (0.5-2.0)
[2017-11-25 00:59] LABS: ALANINE AMINOTRANSFERASE 43 IU/L (13-69); ALBUMIN 3.3 g/dl (3.3-4.9); ALBUMIN/GLOBULIN RATIO 0.76; ALKALINE PHOSPHATASE 115 IU/L (42-121); ANION GAP 16 (8-16); ASPARTATE AMINO TRANSFERASE 64 IU/L (15-46); BILIRUBIN,INDIRECT 0.1 mg/dl (0-1.1); BILIRUBIN,TOTAL 0.1 mg/dl (0.2-1.3); BLOOD UREA NITROGEN 27 mg/dl (7-20); CALCIUM 9.2 mg/dl (8.4-10.2); CARBON DIOXIDE 29 mmol/L (21-31); CHLORIDE 97 mmol/L (97-110); GLUCOSE 112 mg/dl (70-220); INR 1.54; POTASSIUM 3.1 mmol/L (3.5-5.1); PROTIME 18.8 Sec (11.9-14.9); PT RATIO 1.5; SODIUM 139 mmol/L (135-144); TOTAL PROTEIN 7.6 g/dl (6.1-8.1)
[2017-11-25 01:00] LABS: PARTIAL THROMBOPLASTIN TIME 39.3 Sec (25.0-35.0)
[2017-11-25 01:13] LABS: TROPONIN-I < 0.012 ng/ml (0.000-0.120)
[2017-11-25] MEDS: LEVOFLOXACIN 750MG/D5W (PMX) 150 ML IVPB (02:18)
[2017-11-25 02:58] LABS: LACTIC ACID 3.5 mmol/L (0.5-2.0)
[2017-11-25] MEDS: VANCOMYCIN 1 GM (PMX) 250 ML IVPB (03:44)
[2017-11-25] MEDS ORDERED: morphine 2 MG INJ IV (06:00)
[2017-11-25] MEDS ORDERED: ONDANSETRON 4 MG INJ IV (06:00)
[2017-11-25] MEDS ORDERED: CEFTRIAXONE 1 GM/50 ML (PMX) 50 ML IVPB (06:00)
[2017-11-25] MEDS: SOD CHLORIDE 0.9% 1,000 ML IV ×2 (06:13→21:02)
[2017-11-25] MEDS: PANTOPRAZOLE 40 MG INJ IV (06:18)
[2017-11-25 06:52] LABS: LACTIC ACID 3.5 mmol/L (0.5-2.0)
[2017-11-25] MEDS: LEVOFLOXACIN 500MG/D5W (PMX) 100 ML IVPB (08:13)
[2017-11-25] MEDS: HYDROCODONE/APAP (5/325) TAB PO ×3 (08:14→20:13)
[2017-11-25] MEDS: POTASSIUM CHLORIDE (SR) 20 MEQ TAB PO (08:55)
[2017-11-25 12:37] LABS: POTASSIUM 4.1 mmol/L (3.5-5.1)
[2017-11-25] MEDS: SOD CHLORIDE 0.9% 500 ML IV (16:13)
[2017-11-25] MEDS ORDERED: VANCOMYCIN IV PER PHARMACY XX (16:30)
[2017-11-25] MEDS: VANCOMYCIN 750 MG in DEXTROSE 5% 150 ML IVPB (17:53)
[2017-11-25] MEDS: ERTAPENEM SODIUM 1 GM in SOD CHLORIDE 0.9% 100 ML IVPB (18:30)
[2017-11-26] MEDS: HYDROCODONE/APAP (5/325) TAB PO ×3 (02:20→20:14)
[2017-11-26] MEDS: VANCOMYCIN 750 MG in DEXTROSE 5% 150 ML IVPB ×2 (05:17→18:40)
[2017-11-26] MEDS: PANTOPRAZOLE 40 MG INJ IV (05:20)
[2017-11-26 05:30] LABS: ADD MAN DIFF? NO
[2017-11-26 05:40] LABS: ABNORMAL IP MESSAGE 1; BASOPHIL # 0.1 10^3/ul (0.0-0.1); BASOPHILS % 0.2 % (0.0-2.0); EOSINOPHILS % 0.1 % (0.0-7.0); HEMATOCRIT 23.5 % (37.0-47.0); HEMOGLOBIN 7.3 g/dl (12.0-16.0); LYMPHOCYTES # 0.9 10^3/ul (0.8-2.9); LYMPHOCYTES % 4.1 % (15.0-51.0); MEAN CORPUSCULAR HEMOGLOBIN 27.2 pg (29.0-33.0); MEAN CORPUSCULAR HGB CONC 31.1 g/dl (32.0-37.0); MEAN CORPUSCULAR VOLUME 87.7 fl (82.0-101.0); MEAN PLATELET VOLUME 8.7 fl (7.4-10.4); MONOCYTE # 1.8 10^3/ul (0.3-0.9); MONOCYTES % 7.8 % (0.0-11.0); NEUTROPHILS % 86.8 % (39.0-77.0); PLATELET COUNT 512 10^3/UL (140-415); RED BLOOD COUNT 2.68 10^6/ul (4.20-5.40); RED CELL DISTRIBUTION WIDTH 20.7 % (11.5-14.5)
[2017-11-26 05:40] LABS: WHITE BLOOD COUNT 23.1 10^3/ul (4.8-10.8)
[2017-11-26 05:51] LABS: LACTIC ACID 2.1 mmol/L (0.5-2.0)
[2017-11-26 05:56] LABS: ALANINE AMINOTRANSFERASE 30 IU/L (13-69); ALBUMIN 2.8 g/dl (3.3-4.9); ALBUMIN/GLOBULIN RATIO 0.71; ALKALINE PHOSPHATASE 88 IU/L (42-121); ANION GAP 14 (8-16); ASPARTATE AMINO TRANSFERASE 30 IU/L (15-46); BILIRUBIN,INDIRECT 0.3 mg/dl (0-1.1); BILIRUBIN,TOTAL 0.3 mg/dl (0.2-1.3); BLOOD UREA NITROGEN 14 mg/dl (7-20); CALCIUM 8.8 mg/dl (8.4-10.2); CARBON DIOXIDE 29 mmol/L (21-31); CHLORIDE 103 mmol/L (97-110); CREATININE 0.75 mg/dl (0.44-1.00); GLUCOSE 88 mg/dl (70-220); POTASSIUM 4.2 mmol/L (3.5-5.1); SODIUM 142 mmol/L (135-144); TOTAL PROTEIN 6.7 g/dl (6.1-8.1)
[2017-11-26 05:57] LABS: PHOSPHORUS 3.8 mg/dl (2.5-4.9)
[2017-11-26 05:57] LABS: MAGNESIUM 1.7 mg/dl (1.7-2.5)
[2017-11-26 06:23] LABS: POSITIVE DIFF @See below
[2017-11-26] MEDS: SOD CHLORIDE 0.9% 1,000 ML IV (11:08)
[2017-11-26 14:37] LABS: OCCULT BLOOD STOOL POSITIVE (NEGATIVE)
[2017-11-26] MEDS: ERTAPENEM SODIUM 1 GM in SOD CHLORIDE 0.9% 100 ML IVPB (17:36)
[2017-11-26 18:18] LABS: VANCOMYCIN,TROUGH 12.5 ug/ml (10.0-20.0)
[2017-11-26 18:37] LABS: HEMATOCRIT 25.4 % (37.0-47.0); HEMOGLOBIN 7.9 g/dl (12.0-16.0)
[2017-11-27] MEDS: SOD CHLORIDE 0.9% 1,000 ML IV ×3 (02:13→21:53)
[2017-11-27] MEDS: HYDROCODONE/APAP (5/325) TAB PO ×3 (02:15→19:46)
[2017-11-27 05:18] LABS: ADD MAN DIFF? NO
[2017-11-27 05:21] LABS: ABNORMAL IP MESSAGE 1; BASOPHIL # 0.1 10^3/ul (0.0-0.1); BASOPHILS % 0.2 % (0.0-2.0); EOSINOPHILS # 0.1 10^3/ul (0.0-0.5); EOSINOPHILS % 0.4 % (0.0-7.0); HEMATOCRIT 23.2 % (37.0-47.0); HEMOGLOBIN 7.3 g/dl (12.0-16.0); LYMPHOCYTES # 1.2 10^3/ul (0.8-2.9); LYMPHOCYTES % 4.9 % (15.0-51.0); MEAN CORPUSCULAR HEMOGLOBIN 27.4 pg (29.0-33.0); MEAN CORPUSCULAR HGB CONC 31.5 g/dl (32.0-37.0); MEAN CORPUSCULAR VOLUME 87.2 fl (82.0-101.0); MEAN PLATELET VOLUME 8.7 fl (7.4-10.4); MONOCYTE # 1.7 10^3/ul (0.3-0.9); NEUTROPHIL # 21.2 10^3/ul (1.6-7.5); NEUTROPHILS % 86.6 % (39.0-77.0); PLATELET COUNT 525 10^3/UL (140-415); RED BLOOD COUNT 2.66 10^6/ul (4.20-5.40); RED CELL DISTRIBUTION WIDTH 20.5 % (11.5-14.5)
[2017-11-27 05:21] LABS: WHITE BLOOD COUNT 24.5 10^3/ul (4.8-10.8)
[2017-11-27 05:33] LABS: MAGNESIUM 1.7 mg/dl (1.7-2.5)
[2017-11-27 05:33] LABS: PHOSPHORUS 4.6 mg/dl (2.5-4.9)
[2017-11-27 05:34] LABS: ANION GAP 13 (8-16); BLOOD UREA NITROGEN 15 mg/dl (7-20); CALCIUM 8.5 mg/dl (8.4-10.2); CARBON DIOXIDE 27 mmol/L (21-31); CHLORIDE 104 mmol/L (97-110); GLUCOSE 92 mg/dl (70-220); POTASSIUM 3.8 mmol/L (3.5-5.1); SODIUM 140 mmol/L (135-144)
[2017-11-27] MEDS: PANTOPRAZOLE 40 MG INJ IV (06:09)
[2017-11-27] MEDS: VANCOMYCIN 750 MG in DEXTROSE 5% 150 ML IVPB (06:09)
[2017-11-27 06:18] LABS: POSITIVE DIFF @See below
[2017-11-27] MEDS: PROPOFOL 20 ML (10:18)
[2017-11-27] MEDS: MIDAZOLAM 1 MG/ML 2 ML INJ (10:19)
[2017-11-27] MEDS: FENTAnyl 50 MCG/ML VIAL (10:19)
[2017-11-27] MEDS: LIDOCAINE 1% (MDV) 10 ML INJ (10:27)
[2017-11-27] MEDS ORDERED: ONDANSETRON 4 MG INJ IV (11:00)
[2017-11-27] MEDS ORDERED: HYDROmorphONE (0.2 MG/ML) 10ML SYG IV ×3 (11:00)
[2017-11-27] MEDS: ERTAPENEM SODIUM 1 GM in SOD CHLORIDE 0.9% 100 ML IVPB (18:08)
[2017-11-27] MEDS: ACETAMINOPHEN 325 MG TAB PO (21:48)
[2017-11-28] MEDS: HYDROCODONE/APAP (5/325) TAB PO ×3 (02:52→22:32)
[2017-11-28] MEDS: PANTOPRAZOLE 40 MG INJ IV (05:29)
[2017-11-28] MEDS: SOD CHLORIDE 0.9% 1,000 ML IV (06:02)
[2017-11-28 07:34] LABS: ADD MAN DIFF? NO
[2017-11-28 07:38] LABS: ABNORMAL IP MESSAGE 1; BASOPHIL # 0.1 10^3/ul (0.0-0.1); BASOPHILS % 0.2 % (0.0-2.0); EOSINOPHILS # 0.1 10^3/ul (0.0-0.5); EOSINOPHILS % 0.3 % (0.0-7.0); HEMATOCRIT 22.9 % (37.0-47.0); HEMOGLOBIN 7.2 g/dl (12.0-16.0); LYMPHOCYTES % 3.9 % (15.0-51.0); MEAN CORPUSCULAR HEMOGLOBIN 27.9 pg (29.0-33.0); MEAN CORPUSCULAR HGB CONC 31.4 g/dl (32.0-37.0); MEAN CORPUSCULAR VOLUME 88.8 fl (82.0-101.0); MEAN PLATELET VOLUME 8.6 fl (7.4-10.4); MONOCYTE # 1.4 10^3/ul (0.3-0.9); MONOCYTES % 5.6 % (0.0-11.0); NEUTROPHILS % 89.2 % (39.0-77.0); PLATELET COUNT 511 10^3/UL (140-415); RED BLOOD COUNT 2.58 10^6/ul (4.20-5.40); RED CELL DISTRIBUTION WIDTH 20.4 % (11.5-14.5)
[2017-11-28 07:38] LABS: WHITE BLOOD COUNT 24.7 10^3/ul (4.8-10.8)
[2017-11-28 08:01] LABS: ANION GAP 10 (8-16); BLOOD UREA NITROGEN 15 mg/dl (7-20); CALCIUM 8.3 mg/dl (8.4-10.2); CARBON DIOXIDE 26 mmol/L (21-31); CHLORIDE 109 mmol/L (97-110); GLUCOSE 78 mg/dl (70-220); POTASSIUM 3.9 mmol/L (3.5-5.1); SODIUM 141 mmol/L (135-144)
[2017-11-28 08:06] LABS: MAGNESIUM 1.8 mg/dl (1.7-2.5)
[2017-11-28 08:06] LABS: PHOSPHORUS 4.6 mg/dl (2.5-4.9)
[2017-11-28] MEDS: DOXYCYCLINE 100 MG TAB PO (21:23)
[2017-11-29] MEDS: HYDROCODONE/APAP (5/325) TAB PO ×4 (04:29→21:06)
[2017-11-29] MEDS: PANTOPRAZOLE 40 MG INJ IV (06:10)
[2017-11-29 08:49] LABS: ADD MAN DIFF? NO
[2017-11-29 08:55] LABS: WHITE BLOOD COUNT 21.9 10^3/ul (4.8-10.8)
[2017-11-29 08:55] LABS: ABNORMAL IP MESSAGE 1; BASOPHIL # 0.1 10^3/ul (0.0-0.1); BASOPHILS % 0.2 % (0.0-2.0); EOSINOPHILS # 0.1 10^3/ul (0.0-0.5); EOSINOPHILS % 0.5 % (0.0-7.0); HEMATOCRIT 22.3 % (37.0-47.0); LYMPHOCYTES # 1.3 10^3/ul (0.8-2.9); MEAN CORPUSCULAR HEMOGLOBIN 27.3 pg (29.0-33.0); MEAN CORPUSCULAR HGB CONC 30.9 g/dl (32.0-37.0); MEAN CORPUSCULAR VOLUME 88.1 fl (82.0-101.0); MEAN PLATELET VOLUME 8.6 fl (7.4-10.4); MONOCYTE # 1.2 10^3/ul (0.3-0.9); MONOCYTES % 5.4 % (0.0-11.0); NEUTROPHIL # 19.1 10^3/ul (1.6-7.5); NEUTROPHILS % 87.1 % (39.0-77.0); PLATELET COUNT 490 10^3/UL (140-415); RED BLOOD COUNT 2.53 10^6/ul (4.20-5.40); RED CELL DISTRIBUTION WIDTH 20.5 % (11.5-14.5)
[2017-11-29 09:04] LABS: HEMOGLOBIN 6.9 g/dl (12.0-16.0); POSITIVE DIFF @See below
[2017-11-29] MEDS: DOXYCYCLINE 100 MG TAB PO ×2 (09:09→20:45)
[2017-11-29 09:18] LABS: ANION GAP 11 (8-16); BLOOD UREA NITROGEN 14 mg/dl (7-20); CALCIUM 8.8 mg/dl (8.4-10.2); CARBON DIOXIDE 28 mmol/L (21-31); CHLORIDE 107 mmol/L (97-110); CREATININE 0.66 mg/dl (0.44-1.00); GLUCOSE 86 mg/dl (70-220); POTASSIUM 4.4 mmol/L (3.5-5.1); SODIUM 142 mmol/L (135-144)
[2017-11-29 09:21] LABS: PHOSPHORUS 3.5 mg/dl (2.5-4.9)
[2017-11-29 09:21] LABS: MAGNESIUM 1.9 mg/dl (1.7-2.5)
[2017-11-29] MEDS: SOD FERRIC GLUC COMPLX 125 MG in SOD CHLORIDE 0.9% 100 ML IVPB (16:47)
[2017-11-29 20:37] LABS: AHG CROSSMATCH 1 2
[2017-11-29] MEDS: ACETAMINOPHEN 325 MG TAB PO (20:45)
[2017-11-29] MEDS: DIPHENHYDRAMINE 25 MG CAP PO (20:45)
[2017-11-30] MEDS: HYDROCODONE/APAP (5/325) TAB PO ×4 (00:34→21:04)
[2017-11-30] MEDS: PANTOPRAZOLE (EC) 40 MG TAB PO (05:05)
[2017-11-30 06:20] LABS: ABNORMAL IP MESSAGE 1; HEMOGLOBIN 8.2 g/dl (12.0-16.0); MEAN CORPUSCULAR HEMOGLOBIN 27.3 pg (29.0-33.0); MEAN CORPUSCULAR HGB CONC 31.5 g/dl (32.0-37.0); MEAN CORPUSCULAR VOLUME 86.7 fl (82.0-101.0); MEAN PLATELET VOLUME 8.8 fl (7.4-10.4); PLATELET COUNT 480 10^3/UL (140-415); RED CELL DISTRIBUTION WIDTH 19.8 % (11.5-14.5)
[2017-11-30 06:20] LABS: WHITE BLOOD COUNT 31.5 10^3/ul (4.8-10.8)
[2017-11-30 06:52] LABS: ADD MAN DIFF? YES; POSITIVE DIFF @See below
[2017-11-30] MEDS: DOXYCYCLINE 100 MG TAB PO ×2 (08:51→20:59)
[2017-11-30 09:53] LABS: ANISOCYTOSIS 1+ (0-0); HYPOCHROMASIA 2+ (0-0); LYMPHOCYTES #M 0.3 10^3/ul (0.8-2.9); LYMPHOCYTES % (M) 1 % (15-51); MONOCYTE #M 0.6 10^3/ul (0.3-0.9); MONOCYTES % (M) 2 % (0-11); PLATELET ESTIMATE NORMAL; POLYCHROMASIA 2+ (0-0); SEGMENTED NEUTROPHILS (M) % 97 % (39-77); SMUDGE%M 2 % (0-0)
[2017-11-30] MEDS: FOSFOMYCIN 3 GM PACKET PO (17:00)
[2017-11-30] MEDS: SOD FERRIC GLUC COMPLX 125 MG in SOD CHLORIDE 0.9% 100 ML IVPB (17:01)
[2017-12-01] MEDS: ACETAMINOPHEN 325 MG TAB PO (02:17)
[2017-12-01] MEDS: HYDROCODONE/APAP (5/325) TAB PO ×4 (03:25→23:12)
[2017-12-01] MEDS: PANTOPRAZOLE (EC) 40 MG TAB PO (05:39)
[2017-12-01] MEDS: DOXYCYCLINE 100 MG TAB PO ×2 (08:17→23:10)
[2017-12-01] MEDS: SOD FERRIC GLUC COMPLX 125 MG in SOD CHLORIDE 0.9% 100 ML IVPB (16:57)
[2017-12-01] MEDS ORDERED: HYDROCODONE/APAP (5/325) TAB PO (19:00)
[2017-12-02] MEDS: PANTOPRAZOLE (EC) 40 MG TAB PO (05:23)
[2017-12-02] MEDS: HYDROCODONE/APAP (5/325) TAB PO ×3 (05:24→18:29)
[2017-12-02] MEDS: DOXYCYCLINE 100 MG TAB PO ×2 (08:22→20:07)
[2017-12-02 08:56] LABS: ABNORMAL IP MESSAGE 1; HEMATOCRIT 24.5 % (37.0-47.0); HEMOGLOBIN 7.7 g/dl (12.0-16.0); MEAN CORPUSCULAR HEMOGLOBIN 28.1 pg (29.0-33.0); MEAN CORPUSCULAR HGB CONC 31.4 g/dl (32.0-37.0); MEAN CORPUSCULAR VOLUME 89.4 fl (82.0-101.0); MEAN PLATELET VOLUME 8.7 fl (7.4-10.4); PLATELET COUNT 465 10^3/UL (140-415); RED BLOOD COUNT 2.74 10^6/ul (4.20-5.40); RED CELL DISTRIBUTION WIDTH 19.7 % (11.5-14.5)
[2017-12-02 08:56] LABS: WHITE BLOOD COUNT 36.9 10^3/ul (4.8-10.8)
[2017-12-02 09:06] LABS: POSITIVE DIFF @See below
[2017-12-02 09:07] LABS: ADD MAN DIFF? YES
[2017-12-02 09:21] LABS: ANION GAP 8 (8-16); BLOOD UREA NITROGEN 17 mg/dl (7-20); CALCIUM 8.9 mg/dl (8.4-10.2); CARBON DIOXIDE 29 mmol/L (21-31); CHLORIDE 104 mmol/L (97-110); CREATININE 0.75 mg/dl (0.44-1.00); GLUCOSE 72 mg/dl (70-220); MAGNESIUM 1.7 mg/dl (1.7-2.5); POTASSIUM 4.5 mmol/L (3.5-5.1); SODIUM 136 mmol/L (135-144)
[2017-12-02 09:21] LABS: PHOSPHORUS 4.1 mg/dl (2.5-4.9)
[2017-12-02 10:24] LABS: GIANT THROMBO% (M) 1 % (0-0); HYPOCHROMASIA 1+ (0-0); LYMPHOCYTES #M 0.7 10^3/ul (0.8-2.9); LYMPHOCYTES % (M) 2 % (15-51); MONOCYTE #M 1.1 10^3/ul (0.3-0.9); MONOCYTES % (M) 3 % (0-11); PLATELET ESTIMATE INCREASED; SEGMENTED NEUTROPHILS (M) % 95 % (39-77); SMUDGE%M 2 % (0-0)
[2017-12-02] MEDS: SOD FERRIC GLUC COMPLX 125 MG in SOD CHLORIDE 0.9% 100 ML IVPB (17:12)
[2017-12-02] MEDS: METOPROLOL 25 MG TAB PO (20:08)
[2017-12-03] MEDS: HYDROCODONE/APAP (5/325) TAB PO ×4 (00:07→20:18)
[2017-12-03] MEDS: PANTOPRAZOLE (EC) 40 MG TAB PO (06:04)
[2017-12-03 07:24] LABS: ABNORMAL IP MESSAGE 1; HEMATOCRIT 24.8 % (37.0-47.0); HEMOGLOBIN 7.7 g/dl (12.0-16.0); MEAN CORPUSCULAR HEMOGLOBIN 27.8 pg (29.0-33.0); MEAN CORPUSCULAR VOLUME 89.5 fl (82.0-101.0); MEAN PLATELET VOLUME 8.8 fl (7.4-10.4); PLATELET COUNT 485 10^3/UL (140-415); RED BLOOD COUNT 2.77 10^6/ul (4.20-5.40); RED CELL DISTRIBUTION WIDTH 19.4 % (11.5-14.5)
[2017-12-03 07:36] LABS: POSITIVE DIFF @See below
[2017-12-03 07:38] LABS: ADD MAN DIFF? YES
[2017-12-03] MEDS: DOXYCYCLINE 100 MG TAB PO ×2 (08:44→20:18)
[2017-12-03] MEDS: METOPROLOL 25 MG TAB PO ×2 (08:44→20:19)
[2017-12-03 09:42] LABS: ANISOCYTOSIS 1+ (0-0); BAND NEUTROPHILS #M 4.1 10^3/ul (0.0-0.6); BAND NEUTROPHILS % (M) 11 % (0-4); HYPOCHROMASIA 2+ (0-0); LYMPHOCYTES #M 0.7 10^3/ul (0.8-2.9); LYMPHOCYTES % (M) 2 % (15-51); MONOCYTE #M 1.1 10^3/ul (0.3-0.9); MONOCYTES % (M) 3 % (0-11); OVALOCYTES 1+ (0-0); PLATELET ESTIMATE INCREASED; POLYCHROMASIA 1+ (0-0); SEG NEUT #M 33.5 10^3/ul (1.6-7.5); SEGMENTED NEUTROPHILS (M) % 84 % (39-77); SMUDGE%M 4 % (0-0); TEAR DROP CELLS 1+ (0-0)
[2017-12-03 16:40] LABS: ADD UMIC YES; UR ASCORBIC ACID NEGATIVE (NEGATIVE); UR BACTERIA FEW /HPF (NONE SEEN); UR BILIRUBIN (Dip) NEGATIVE (NEGATIVE); UR BLOOD (Dip) 1+ mg/dL (NEGATIVE); UR CLARITY CLOUDY (CLEAR); UR COLOR YELLOW (YELLOW); UR GLUCOSE (Dip) NEGATIVE (NEGATIVE); UR KETONES (Dip) NEGATIVE (NEGATIVE); UR LEUKOCYTE ESTERASE (Dip) 2+ Leu/ul (NEGATIVE); UR MUCUS FEW /HPF (NONE SEEN); UR NITRITE (Dip) NEGATIVE (NEGATIVE); UR RBC 3 /HPF (0-5); UR SPECIFIC GRAVITY (Dip) 1.013 (1.003-1.030); UR SQUAMOUS EPITHELIAL CELL MODERATE /HPF (FEW); UR TOTAL PROTEIN (Dip) 1+ mg/dl (NEGATIVE); UR UROBILINOGEN (Dip) NEGATIVE (NEGATIVE); UR WBC 11 /HPF (0-5)
[2017-12-03] MEDS: SOD FERRIC GLUC COMPLX 125 MG in SOD CHLORIDE 0.9% 100 ML IVPB (17:27)
[2017-12-04] MEDS: HYDROCODONE/APAP (5/325) TAB PO ×4 (01:56→22:27)
[2017-12-04] MEDS: PANTOPRAZOLE (EC) 40 MG TAB PO (05:14)
[2017-12-04] MEDS: DOXYCYCLINE 100 MG TAB PO (08:21)
[2017-12-04] MEDS: METOPROLOL 25 MG TAB PO ×2 (08:22→20:13)
[2017-12-04 08:58] LABS: ABNORMAL IP MESSAGE 1; HEMATOCRIT 25.2 % (37.0-47.0); HEMOGLOBIN 7.8 g/dl (12.0-16.0); MEAN CORPUSCULAR HEMOGLOBIN 28.1 pg (29.0-33.0); MEAN CORPUSCULAR VOLUME 90.6 fl (82.0-101.0); MEAN PLATELET VOLUME 9.1 fl (7.4-10.4); PLATELET COUNT 492 10^3/UL (140-415); RED BLOOD COUNT 2.78 10^6/ul (4.20-5.40); RED CELL DISTRIBUTION WIDTH 19.5 % (11.5-14.5)
[2017-12-04 08:58] LABS: WHITE BLOOD COUNT 35.7 10^3/ul (4.8-10.8)
[2017-12-04 09:00] LABS: POSITIVE DIFF @See below
[2017-12-04] MEDS: SOD CHLORIDE 0.9% 100 ML (09:00)
[2017-12-04] MEDS: IOHEXOL 300MG/ML 150 ML BTL (09:00)
[2017-12-04 09:01] LABS: ADD MAN DIFF? YES
[2017-12-04 10:59] LABS: ANISOCYTOSIS 1+ (0-0); BAND NEUTROPHILS #M 0.7 10^3/ul (0.0-0.6); BAND NEUTROPHILS % (M) 2 % (0-4); HYPOCHROMASIA 1+ (0-0); LYMPHOCYTES #M 0.7 10^3/ul (0.8-2.9); LYMPHOCYTES % (M) 2 % (15-51); MONOCYTE #M 1.7 10^3/ul (0.3-0.9); MONOCYTES % (M) 5 % (0-11); PLATELET ESTIMATE INCREASED; SEG NEUT #M 32.7 10^3/ul (1.6-7.5); SEGMENTED NEUTROPHILS (M) % 91 % (39-77); SMUDGE%M 5 % (0-0)
[2017-12-04] MEDS: ZYVOX 600 MG TAB PO ×2 (12:37→20:13)
[2017-12-05] MEDS: PANTOPRAZOLE (EC) 40 MG TAB PO (04:48)
[2017-12-05] MEDS: HYDROCODONE/APAP (5/325) TAB PO ×3 (04:48→19:07)
[2017-12-05] MEDS: ZYVOX 600 MG TAB PO ×2 (08:16→20:22)
[2017-12-05] MEDS: METOPROLOL 25 MG TAB PO ×2 (08:17→20:22)
[2017-12-05 09:52] LABS: WHITE BLOOD COUNT 35.4 10^3/ul (4.8-10.8)
[2017-12-05 09:52] LABS: ABNORMAL IP MESSAGE 1; HEMATOCRIT 24.4 % (37.0-47.0); HEMOGLOBIN 7.5 g/dl (12.0-16.0); MEAN CORPUSCULAR HEMOGLOBIN 28.1 pg (29.0-33.0); MEAN CORPUSCULAR HGB CONC 30.7 g/dl (32.0-37.0); MEAN CORPUSCULAR VOLUME 91.4 fl (82.0-101.0); PLATELET COUNT 474 10^3/UL (140-415); RED BLOOD COUNT 2.67 10^6/ul (4.20-5.40); RED CELL DISTRIBUTION WIDTH 19.4 % (11.5-14.5)
[2017-12-05 10:02] LABS: ADD MAN DIFF? YES; POSITIVE DIFF @See below
[2017-12-05 10:11] LABS: PHOSPHORUS 3.3 mg/dl (2.5-4.9)
[2017-12-05 10:11] LABS: MAGNESIUM 1.7 mg/dl (1.7-2.5)
[2017-12-05 10:18] LABS: ANION GAP 11 (8-16); BLOOD UREA NITROGEN 14 mg/dl (7-20); CALCIUM 9.3 mg/dl (8.4-10.2); CARBON DIOXIDE 27 mmol/L (21-31); CHLORIDE 102 mmol/L (97-110); CREATININE 0.77 mg/dl (0.44-1.00); GLUCOSE 73 mg/dl (70-220); POTASSIUM 4.2 mmol/L (3.5-5.1); SODIUM 136 mmol/L (135-144)
[2017-12-05 10:45] LABS: HYPOCHROMASIA 1+ (0-0); LYMPHOCYTES #M 1.4 10^3/ul (0.8-2.9); LYMPHOCYTES % (M) 4 % (15-51); MONOCYTE #M 0.7 10^3/ul (0.3-0.9); MONOCYTES % (M) 2 % (0-11); PLATELET ESTIMATE INCREASED; POLYCHROMASIA 3+ (0-0); SEGMENTED NEUTROPHILS (M) % 94 % (39-77); SMUDGE%M 5 % (0-0)
[2017-12-05] MEDS: FLUCONAZOLE 100 MG TAB PO (13:45)
[2017-12-05] MEDS: BISACODYL (EC) 5 MG TAB PO (20:22)
[2017-12-06] MEDS: HYDROCODONE/APAP (5/325) TAB PO ×4 (01:07→21:33)
[2017-12-06] MEDS: PANTOPRAZOLE (EC) 40 MG TAB PO (05:26)
[2017-12-06 07:39] LABS: WHITE BLOOD COUNT 33.2 10^3/ul (4.8-10.8)
[2017-12-06 07:39] LABS: ABNORMAL IP MESSAGE 1; HEMATOCRIT 24.9 % (37.0-47.0); HEMOGLOBIN 7.5 g/dl (12.0-16.0); MEAN CORPUSCULAR HEMOGLOBIN 28.1 pg (29.0-33.0); MEAN CORPUSCULAR HGB CONC 30.1 g/dl (32.0-37.0); MEAN CORPUSCULAR VOLUME 93.3 fl (82.0-101.0); PLATELET COUNT 482 10^3/UL (140-415); RED BLOOD COUNT 2.67 10^6/ul (4.20-5.40); RED CELL DISTRIBUTION WIDTH 19.6 % (11.5-14.5)
[2017-12-06 07:43] LABS: ADD MAN DIFF? YES; POSITIVE DIFF @See below
[2017-12-06 08:04] LABS: PHOSPHORUS 3.2 mg/dl (2.5-4.9)
[2017-12-06 08:04] LABS: MAGNESIUM 1.7 mg/dl (1.7-2.5)
[2017-12-06 08:09] LABS: ANION GAP 13 (8-16); BLOOD UREA NITROGEN 14 mg/dl (7-20); CALCIUM 9.6 mg/dl (8.4-10.2); CARBON DIOXIDE 24 mmol/L (21-31); CHLORIDE 104 mmol/L (97-110); CREATININE 0.89 mg/dl (0.44-1.00); GLUCOSE 84 mg/dl (70-220); POTASSIUM 4.9 mmol/L (3.5-5.1); SODIUM 136 mmol/L (135-144)
[2017-12-06] MEDS: ZYVOX 600 MG TAB PO ×2 (08:27→20:14)
[2017-12-06] MEDS: FLUCONAZOLE 100 MG TAB PO (08:27)
[2017-12-06] MEDS: METOPROLOL 25 MG TAB PO ×2 (08:42→20:14)
[2017-12-06 10:07] LABS: ANISOCYTOSIS 1+ (0-0); BAND NEUTROPHILS #M 0.3 10^3/ul (0.0-0.6); BAND NEUTROPHILS % (M) 1 % (0-4); EOSINOPHILS % (M) 1 % (0-7); GIANT THROMBO% (M) 1 % (0-0); HYPOCHROMASIA 1+ (0-0); LYMPHOCYTES #M 0.9 10^3/ul (0.8-2.9); LYMPHOCYTES % (M) 3 % (15-51); MONOCYTE #M 1.3 10^3/ul (0.3-0.9); MONOCYTES % (M) 4 % (0-11); PLATELET ESTIMATE NORMAL; POLYCHROMASIA 3+ (0-0); REACTIVE LYMPHOCYTES #M 0.6 10^3/ul (0.0-0.0); REACTIVE LYMPHOCYTES% (M) 2 % (0-0); SEG NEUT #M 29.6 10^3/ul (1.6-7.5); SEGMENTED NEUTROPHILS (M) % 89 % (39-77)
[2017-12-07] MEDS: PANTOPRAZOLE (EC) 40 MG TAB PO (05:10)
[2017-12-07] MEDS: HYDROCODONE/APAP (5/325) TAB PO ×3 (05:11→18:20)
[2017-12-07] MEDS: ZYVOX 600 MG TAB PO ×2 (08:57→21:57)
[2017-12-07] MEDS: FLUCONAZOLE 100 MG TAB PO (08:57)
[2017-12-07] MEDS: METOPROLOL 25 MG TAB PO ×2 (08:57→21:57)
[2017-12-08] MEDS: HYDROCODONE/APAP (5/325) TAB PO ×4 (00:11→21:42)
[2017-12-08] MEDS: PANTOPRAZOLE (EC) 40 MG TAB PO (06:14)
[2017-12-08] MEDS: FLUCONAZOLE 100 MG TAB PO (08:28)
[2017-12-08] MEDS: ZYVOX 600 MG TAB PO ×2 (08:28→21:41)
[2017-12-08] MEDS: METOPROLOL 25 MG TAB PO ×2 (08:28→21:41)
[2017-12-09] MEDS: HYDROCODONE/APAP (5/325) TAB PO ×4 (03:54→23:19)
[2017-12-09 06:40] LABS: ABNORMAL IP MESSAGE 1; HEMATOCRIT 23.8 % (37.0-47.0); HEMOGLOBIN 7.2 g/dl (12.0-16.0); MEAN CORPUSCULAR HEMOGLOBIN 28.5 pg (29.0-33.0); MEAN CORPUSCULAR HGB CONC 30.3 g/dl (32.0-37.0); MEAN CORPUSCULAR VOLUME 94.1 fl (82.0-101.0); MEAN PLATELET VOLUME 8.8 fl (7.4-10.4); PLATELET COUNT 397 10^3/UL (140-415); RED BLOOD COUNT 2.53 10^6/ul (4.20-5.40); RED CELL DISTRIBUTION WIDTH 20.2 % (11.5-14.5)
[2017-12-09 06:40] LABS: WHITE BLOOD COUNT 31.2 10^3/ul (4.8-10.8)
[2017-12-09] MEDS: PANTOPRAZOLE (EC) 40 MG TAB PO (06:42)
[2017-12-09 06:47] LABS: POSITIVE DIFF @See below
[2017-12-09 06:48] LABS: ADD MAN DIFF? YES
[2017-12-09 07:38] LABS: ANISOCYTOSIS 1+ (0-0); BAND NEUTROPHILS #M 2.8 10^3/ul (0.0-0.6); BAND NEUTROPHILS % (M) 9 % (0-4); HYPOCHROMASIA 2+ (0-0); LYMPHOCYTES #M 1.5 10^3/ul (0.8-2.9); LYMPHOCYTES % (M) 5 % (15-51); PLATELET ESTIMATE NORMAL; POLYCHROMASIA 3+ (0-0); SEG NEUT #M 27.7 10^3/ul (1.6-7.5); SEGMENTED NEUTROPHILS (M) % 86 % (39-77); SMUDGE%M 3 % (0-0)
[2017-12-09] MEDS: ZYVOX 600 MG TAB PO ×2 (08:28→20:54)
[2017-12-09] MEDS: FLUCONAZOLE 100 MG TAB PO (08:28)
[2017-12-09] MEDS: METOPROLOL 25 MG TAB PO ×2 (08:28→20:54)
[2017-12-10] MEDS: HYDROCODONE/APAP (5/325) TAB PO ×4 (05:17→21:51)
[2017-12-10] MEDS: PANTOPRAZOLE (EC) 40 MG TAB PO (05:17)
[2017-12-10 07:59] LABS: ALANINE AMINOTRANSFERASE 20 IU/L (13-69); ALBUMIN 2.2 g/dl (3.3-4.9); ALBUMIN/GLOBULIN RATIO 0.68; ALKALINE PHOSPHATASE 118 IU/L (42-121); ANION GAP 12 (8-16); ASPARTATE AMINO TRANSFERASE 20 IU/L (15-46); BILIRUBIN,INDIRECT 0.2 mg/dl (0-1.1); BILIRUBIN,TOTAL 0.2 mg/dl (0.2-1.3); BLOOD UREA NITROGEN 18 mg/dl (7-20); CALCIUM 8.9 mg/dl (8.4-10.2); CARBON DIOXIDE 26 mmol/L (21-31); CHLORIDE 103 mmol/L (97-110); CREATININE 0.86 mg/dl (0.44-1.00); GLUCOSE 84 mg/dl (70-220); POTASSIUM 4.9 mmol/L (3.5-5.1); SODIUM 136 mmol/L (135-144); TOTAL PROTEIN 5.4 g/dl (6.1-8.1)
[2017-12-10] MEDS: FLUCONAZOLE 100 MG TAB PO (08:09)
[2017-12-10] MEDS: ZYVOX 600 MG TAB PO ×2 (08:09→21:42)
[2017-12-10] MEDS: METOPROLOL 25 MG TAB PO ×2 (08:10→21:42)
[2017-12-11] MEDS: HYDROCODONE/APAP (5/325) TAB PO ×3 (03:26→20:40)
[2017-12-11] MEDS: PANTOPRAZOLE (EC) 40 MG TAB PO (05:58)
[2017-12-11 07:13] LABS: ADD MAN DIFF? NO
[2017-12-11 07:17] LABS: WHITE BLOOD COUNT 28.5 10^3/ul (4.8-10.8)
[2017-12-11 07:17] LABS: ABNORMAL IP MESSAGE 1; BASOPHIL # 0.1 10^3/ul (0.0-0.1); BASOPHILS % 0.2 % (0.0-2.0); EOSINOPHILS # 0.2 10^3/ul (0.0-0.5); EOSINOPHILS % 0.6 % (0.0-7.0); HEMATOCRIT 23.3 % (37.0-47.0); LYMPHOCYTES # 1.4 10^3/ul (0.8-2.9); MEAN CORPUSCULAR HEMOGLOBIN 28.7 pg (29.0-33.0); MEAN CORPUSCULAR VOLUME 95.5 fl (82.0-101.0); MEAN PLATELET VOLUME 8.6 fl (7.4-10.4); MONOCYTE # 0.7 10^3/ul (0.3-0.9); MONOCYTES % 2.3 % (0.0-11.0); NEUTROPHIL # 25.8 10^3/ul (1.6-7.5); NEUTROPHILS % 90.7 % (39.0-77.0); PLATELET COUNT 313 10^3/UL (140-415); RED BLOOD COUNT 2.44 10^6/ul (4.20-5.40); RED CELL DISTRIBUTION WIDTH 19.9 % (11.5-14.5)
[2017-12-11 07:24] LABS: POSITIVE DIFF @See below
[2017-12-11] MEDS: ZYVOX 600 MG TAB PO ×2 (09:14→20:35)
[2017-12-11] MEDS: FLUCONAZOLE 100 MG TAB PO (09:14)
[2017-12-11] MEDS: METOPROLOL 25 MG TAB PO ×2 (09:14→20:36)
[2017-12-12] MEDS: HYDROCODONE/APAP (5/325) TAB PO ×3 (04:41→16:54)
[2017-12-12] MEDS: PANTOPRAZOLE (EC) 40 MG TAB PO (04:41)
[2017-12-12] MEDS: ZYVOX 600 MG TAB PO ×2 (09:51→20:35)
[2017-12-12] MEDS: METOPROLOL 25 MG TAB PO ×2 (09:51→20:35)
[2017-12-12] MEDS: FLUCONAZOLE 100 MG TAB PO (09:51)
[2017-12-13] MEDS: HYDROCODONE/APAP (5/325) TAB PO ×4 (03:54→23:35)
[2017-12-13] MEDS: PANTOPRAZOLE (EC) 40 MG TAB PO (06:10)
[2017-12-13] MEDS: METOPROLOL 25 MG TAB PO ×2 (08:49→20:06)
[2017-12-13 14:38] LABS: ADD MAN DIFF? NO
[2017-12-13 14:40] LABS: ABNORMAL IP MESSAGE 1; BASOPHILS % 0.2 % (0.0-2.0); EOSINOPHILS # 0.1 10^3/ul (0.0-0.5); EOSINOPHILS % 0.2 % (0.0-7.0); HEMATOCRIT 23.1 % (37.0-47.0); HEMOGLOBIN 7.1 g/dl (12.0-16.0); LYMPHOCYTES # 0.9 10^3/ul (0.8-2.9); LYMPHOCYTES % 3.3 % (15.0-51.0); MEAN CORPUSCULAR HEMOGLOBIN 29.1 pg (29.0-33.0); MEAN CORPUSCULAR HGB CONC 30.7 g/dl (32.0-37.0); MEAN CORPUSCULAR VOLUME 94.7 fl (82.0-101.0); MEAN PLATELET VOLUME 8.7 fl (7.4-10.4); MONOCYTE # 0.5 10^3/ul (0.3-0.9); MONOCYTES % 1.9 % (0.0-11.0); NEUTROPHIL # 23.9 10^3/ul (1.6-7.5); PLATELET COUNT 212 10^3/UL (140-415); RED BLOOD COUNT 2.44 10^6/ul (4.20-5.40); RED CELL DISTRIBUTION WIDTH 19.3 % (11.5-14.5)
[2017-12-13 14:40] LABS: WHITE BLOOD COUNT 25.9 10^3/ul (4.8-10.8)
[2017-12-13 14:42] LABS: POSITIVE DIFF @See below
[2017-12-14] MEDS: PANTOPRAZOLE (EC) 40 MG TAB PO (05:31)
[2017-12-14] MEDS: HYDROCODONE/APAP (5/325) TAB PO ×2 (05:40→20:01)
[2017-12-14 06:05] LABS: ADD MAN DIFF? NO
[2017-12-14 06:22] LABS: WHITE BLOOD COUNT 23.9 10^3/ul (4.8-10.8)
[2017-12-14 06:22] LABS: ABNORMAL IP MESSAGE 1; BASOPHILS % 0.2 % (0.0-2.0); EOSINOPHILS # 0.1 10^3/ul (0.0-0.5); EOSINOPHILS % 0.3 % (0.0-7.0); HEMATOCRIT 21.2 % (37.0-47.0); LYMPHOCYTES # 0.6 10^3/ul (0.8-2.9); LYMPHOCYTES % 2.4 % (15.0-51.0); MEAN CORPUSCULAR HEMOGLOBIN 29.7 pg (29.0-33.0); MEAN CORPUSCULAR HGB CONC 31.1 g/dl (32.0-37.0); MEAN CORPUSCULAR VOLUME 95.5 fl (82.0-101.0); MEAN PLATELET VOLUME 8.9 fl (7.4-10.4); MONOCYTE # 0.4 10^3/ul (0.3-0.9); MONOCYTES % 1.8 % (0.0-11.0); NEUTROPHIL # 22.4 10^3/ul (1.6-7.5); NEUTROPHILS % 93.7 % (39.0-77.0); PLATELET COUNT 179 10^3/UL (140-415); RED BLOOD COUNT 2.22 10^6/ul (4.20-5.40); RED CELL DISTRIBUTION WIDTH 19.3 % (11.5-14.5)
[2017-12-14 06:42] LABS: ANION GAP 17 (8-16); BLOOD UREA NITROGEN 21 mg/dl (7-20); CALCIUM 8.1 mg/dl (8.4-10.2); CARBON DIOXIDE 24 mmol/L (21-31); CHLORIDE 101 mmol/L (97-110); CREATININE 0.84 mg/dl (0.44-1.00); GLUCOSE 103 mg/dl (70-220); POTASSIUM 4.8 mmol/L (3.5-5.1); SODIUM 137 mmol/L (135-144)
[2017-12-14 07:07] LABS: HEMOGLOBIN 6.6 g/dl (12.0-16.0); POSITIVE DIFF @See below
[2017-12-14] MEDS: ACETAMINOPHEN 325 MG TAB PO (09:33)
[2017-12-14] MEDS: DIPHENHYDRAMINE 25 MG CAP PO (09:33)
[2017-12-14] MEDS: METOPROLOL 25 MG TAB PO ×2 (09:34→20:01)
[2017-12-14 09:46] LABS: BAND NEUTROPHILS #M 1.4 10^3/ul (0.0-0.6); BAND NEUTROPHILS % (M) 6 % (0-4); BASOPHIL #M 0.2 10^3/ul (0.0-0.0); BASOPHILS % (M) 1 % (0-2); HYPOCHROMASIA 1+ (0-0); LYMPHOCYTES #M 0.7 10^3/ul (0.8-2.9); LYMPHOCYTES % (M) 3 % (15-51); PLATELET ESTIMATE NORMAL; POLYCHROMASIA 3+ (0-0); SEG NEUT #M 21.8 10^3/ul (1.6-7.5); SEGMENTED NEUTROPHILS (M) % 90 % (39-77); SMUDGE%M 2 % (0-0)
[2017-12-14] MEDS: FERROUS SULFATE 60 MG/ML 5ML CUP PO ×2 (12:52→20:01)
[2017-12-15] MEDS: HYDROCODONE/APAP (5/325) TAB PO ×3 (04:07→20:37)
[2017-12-15] MEDS: PANTOPRAZOLE (EC) 40 MG TAB PO (05:59)
[2017-12-15] MEDS: FERROUS SULFATE 60 MG/ML 5ML CUP PO ×2 (08:34→20:27)
[2017-12-15] MEDS: METOPROLOL 25 MG TAB PO ×2 (08:35→20:28)
[2017-12-15 10:35] LABS: WHITE BLOOD COUNT 21.6 10^3/ul (4.8-10.8)
[2017-12-15 10:35] LABS: HEMATOCRIT 22.8 % (37.0-47.0); HEMOGLOBIN 7.2 g/dl (12.0-16.0); MEAN CORPUSCULAR HEMOGLOBIN 29.5 pg (29.0-33.0); MEAN CORPUSCULAR HGB CONC 31.6 g/dl (32.0-37.0); MEAN CORPUSCULAR VOLUME 93.4 fl (82.0-101.0); MEAN PLATELET VOLUME 8.8 fl (7.4-10.4); PLATELET COUNT 115 10^3/UL (140-415); RED BLOOD COUNT 2.44 10^6/ul (4.20-5.40); RED CELL DISTRIBUTION WIDTH 18.2 % (11.5-14.5)
[2017-12-15 10:40] LABS: ADD MAN DIFF? YES; POSITIVE DIFF @See below
[2017-12-15 10:55] LABS: ALANINE AMINOTRANSFERASE 20 IU/L (13-69); ALBUMIN 2.2 g/dl (3.3-4.9); ALBUMIN/GLOBULIN RATIO 0.66; ALKALINE PHOSPHATASE 124 IU/L (42-121); ANION GAP 13 (8-16); ASPARTATE AMINO TRANSFERASE 26 IU/L (15-46); BILIRUBIN,INDIRECT 0.5 mg/dl (0-1.1); BILIRUBIN,TOTAL 0.5 mg/dl (0.2-1.3); BLOOD UREA NITROGEN 20 mg/dl (7-20); CARBON DIOXIDE 24 mmol/L (21-31); CHLORIDE 104 mmol/L (97-110); CREATININE 0.74 mg/dl (0.44-1.00); GLUCOSE 105 mg/dl (70-220); POTASSIUM 4.4 mmol/L (3.5-5.1); SODIUM 137 mmol/L (135-144); TOTAL PROTEIN 5.5 g/dl (6.1-8.1)
[2017-12-15 12:13] LABS: ANISOCYTOSIS 1+ (0-0); BAND NEUTROPHILS #M 0.8 10^3/ul (0.0-0.6); BAND NEUTROPHILS % (M) 4 % (0-4); LYMPHOCYTES #M 0.4 10^3/ul (0.8-2.9); LYMPHOCYTES % (M) 2 % (15-51); MONOCYTE #M 0.6 10^3/ul (0.3-0.9); MONOCYTES % (M) 3 % (0-11); PLATELET ESTIMATE DECREASED; POLYCHROMASIA 3+ (0-0); SEG NEUT #M 19.8 10^3/ul (1.6-7.5); SEGMENTED NEUTROPHILS (M) % 91 % (39-77); SMUDGE%M 3 % (0-0)
[2017-12-15] MEDS: MULTIVITAMINS/MINERALS TAB PO (16:56)
[2017-12-16] MEDS: HYDROCODONE/APAP (5/325) TAB PO ×3 (05:01→17:19)
[2017-12-16] MEDS: PANTOPRAZOLE (EC) 40 MG TAB PO (05:01)
[2017-12-16] MEDS: FERROUS SULFATE 60 MG/ML 5ML CUP PO ×2 (08:16→20:52)
[2017-12-16] MEDS: MULTIVITAMINS/MINERALS TAB PO (08:16)
[2017-12-16] MEDS: METOPROLOL 25 MG TAB PO ×2 (08:16→20:53)
[2017-12-16] MEDS: ENOXAPARIN 40 MG/0.4 ML SYG SC (11:59)
[2017-12-16 13:10] LABS: ABNORMAL IP MESSAGE 1; HEMATOCRIT 22.2 % (37.0-47.0); MEAN CORPUSCULAR HEMOGLOBIN 29.9 pg (29.0-33.0); MEAN CORPUSCULAR HGB CONC 31.1 g/dl (32.0-37.0); MEAN CORPUSCULAR VOLUME 96.1 fl (82.0-101.0); MEAN PLATELET VOLUME 10.2 fl (7.4-10.4); PLATELET COUNT 88 10^3/UL (140-415); RED BLOOD COUNT 2.31 10^6/ul (4.20-5.40)
[2017-12-16 13:10] LABS: WHITE BLOOD COUNT 18.6 10^3/ul (4.8-10.8)
[2017-12-16 13:16] LABS: ADD MAN DIFF? YES; HEMOGLOBIN 6.9 g/dl (12.0-16.0); POSITIVE DIFF @See below
[2017-12-16 13:43] LABS: BAND NEUTROPHILS #M 1.4 10^3/ul (0.0-0.6); BAND NEUTROPHILS % (M) 8 % (0-4); BASOPHIL #M 0.1 10^3/ul (0.0-0.0); BASOPHILS % (M) 1 % (0-2); GIANT THROMBO% (M) 1 % (0-0); LYMPHOCYTES #M 0.9 10^3/ul (0.8-2.9); LYMPHOCYTES % (M) 5 % (15-51); MONOCYTE #M 1.1 10^3/ul (0.3-0.9); MONOCYTES % (M) 6 % (0-11); PLATELET ESTIMATE DECREASED; POLYCHROMASIA 3+ (0-0); SEG NEUT #M 15.1 10^3/ul (1.6-7.5); SEGMENTED NEUTROPHILS (M) % 80 % (39-77); SMUDGE%M 4 % (0-0)
[2017-12-16 17:51] LABS: INR 1.21; PROTIME 15.5 Sec (11.9-14.9); PT RATIO 1.2
[2017-12-16] MEDS: SOD CHLORIDE 0.9% 500 ML IV (19:38)
[2017-12-16 21:19] LABS: AHG CROSSMATCH 1 2
[2017-12-17] MEDS: HYDROCODONE/APAP (5/325) TAB PO ×3 (02:57→19:55)
[2017-12-17] MEDS: PANTOPRAZOLE (EC) 40 MG TAB PO (05:48)
[2017-12-17 06:03] LABS: ABNORMAL IP MESSAGE 1; HEMATOCRIT 22.6 % (37.0-47.0); HEMOGLOBIN 7.3 g/dl (12.0-16.0); MEAN CORPUSCULAR HGB CONC 32.3 g/dl (32.0-37.0); MEAN PLATELET VOLUME 10.3 fl (7.4-10.4); PLATELET COUNT 96 10^3/UL (140-415); RED BLOOD COUNT 2.43 10^6/ul (4.20-5.40); RED CELL DISTRIBUTION WIDTH 17.2 % (11.5-14.5)
[2017-12-17 06:03] LABS: WHITE BLOOD COUNT 17.5 10^3/ul (4.8-10.8)
[2017-12-17 06:17] LABS: ADD MAN DIFF? YES; POSITIVE DIFF @See below
[2017-12-17 06:43] LABS: ANION GAP 14 (8-16); BLOOD UREA NITROGEN 21 mg/dl (7-20); CALCIUM 7.6 mg/dl (8.4-10.2); CARBON DIOXIDE 24 mmol/L (21-31); CHLORIDE 104 mmol/L (97-110); CREATININE 0.75 mg/dl (0.44-1.00); GLUCOSE 104 mg/dl (70-220); POTASSIUM 4.2 mmol/L (3.5-5.1); SODIUM 138 mmol/L (135-144)
[2017-12-17] MEDS: METOPROLOL 25 MG TAB PO ×2 (08:20→19:54)
[2017-12-17] MEDS: FERROUS SULFATE 60 MG/ML 5ML CUP PO ×2 (08:21→19:55)
[2017-12-17] MEDS: MULTIVITAMINS/MINERALS TAB PO (08:21)
[2017-12-17 08:56] LABS: BAND NEUTROPHILS #M 0.8 10^3/ul (0.0-0.6); BAND NEUTROPHILS % (M) 5 % (0-4); GIANT THROMBO% (M) 1 % (0-0); HYPOCHROMASIA 1+ (0-0); LYMPHOCYTES #M 0.1 10^3/ul (0.8-2.9); LYMPHOCYTES % (M) 1 % (15-51); MONOCYTE #M 0.8 10^3/ul (0.3-0.9); MONOCYTES % (M) 5 % (0-11); PLATELET ESTIMATE DECREASED; POLYCHROMASIA 1+ (0-0); SEG NEUT #M 15.7 10^3/ul (1.6-7.5); SEGMENTED NEUTROPHILS (M) % 89 % (39-77); SMUDGE%M 3 % (0-0)
[2017-12-18] MEDS: HYDROCODONE/APAP (5/325) TAB PO ×3 (03:24→19:19)
[2017-12-18] MEDS: PANTOPRAZOLE (EC) 40 MG TAB PO (05:07)
[2017-12-18 05:35] LABS: WHITE BLOOD COUNT 17.6 10^3/ul (4.8-10.8)
[2017-12-18 05:35] LABS: ABNORMAL IP MESSAGE 1; HEMATOCRIT 21.2 % (37.0-47.0); MEAN CORPUSCULAR HEMOGLOBIN 29.9 pg (29.0-33.0); MEAN CORPUSCULAR HGB CONC 31.6 g/dl (32.0-37.0); MEAN CORPUSCULAR VOLUME 94.6 fl (82.0-101.0); MEAN PLATELET VOLUME 10.7 fl (7.4-10.4); PLATELET COUNT 97 10^3/UL (140-415); RED BLOOD COUNT 2.24 10^6/ul (4.20-5.40); RED CELL DISTRIBUTION WIDTH 17.3 % (11.5-14.5)
[2017-12-18 05:42] LABS: ADD MAN DIFF? YES; HEMOGLOBIN 6.7 g/dl (12.0-16.0); POSITIVE DIFF @See below
[2017-12-18] MEDS: SOD CHLORIDE 0.9% 250 ML IV* (06:13)
[2017-12-18 06:24] LABS: MAGNESIUM 1.9 mg/dl (1.7-2.5)
[2017-12-18 06:24] LABS: PHOSPHORUS 2.8 mg/dl (2.5-4.9)
[2017-12-18 06:49] LABS: ALANINE AMINOTRANSFERASE 35 IU/L (13-69); ALBUMIN/GLOBULIN RATIO 0.64; ALKALINE PHOSPHATASE 189 IU/L (42-121); ANION GAP 13 (8-16); ASPARTATE AMINO TRANSFERASE 48 IU/L (15-46); BILIRUBIN,INDIRECT 0.3 mg/dl (0-1.1); BILIRUBIN,TOTAL 0.3 mg/dl (0.2-1.3); BLOOD UREA NITROGEN 21 mg/dl (7-20); CALCIUM 7.8 mg/dl (8.4-10.2); CARBON DIOXIDE 23 mmol/L (21-31); CHLORIDE 105 mmol/L (97-110); CREATININE 0.74 mg/dl (0.44-1.00); GLUCOSE 124 mg/dl (70-220); POTASSIUM 4.3 mmol/L (3.5-5.1); SODIUM 137 mmol/L (135-144); TOTAL PROTEIN 5.1 g/dl (6.1-8.1)
[2017-12-18 08:49] LABS: ANISOCYTOSIS 2+ (0-0); BAND NEUTROPHILS % (M) 6 % (0-4); ERYTHROBLAST% (NRBC) (M) 2 % (0-0); HYPOCHROMASIA 1+ (0-0); LYMPHOCYTES #M 1.9 10^3/ul (0.8-2.9); LYMPHOCYTES % (M) 11 % (15-51); PLATELET ESTIMATE DECREASED; POLYCHROMASIA 2+ (0-0); SEGMENTED NEUTROPHILS (M) % 84 % (39-77)
[2017-12-18] MEDS: MULTIVITAMINS/MINERALS TAB PO (08:56)
[2017-12-18] MEDS: METOPROLOL 25 MG TAB PO ×2 (08:56→21:46)
[2017-12-18] MEDS: FERROUS SULFATE 60 MG/ML 5ML CUP PO ×2 (08:56→21:46)
[2017-12-18] MEDS: DIPHENHYDRAMINE 25 MG CAP PO (13:19)
[2017-12-18] MEDS: ACETAMINOPHEN 325 MG TAB PO (13:20)
[2017-12-18 13:50] LABS: AHG CROSSMATCH 1 2
[2017-12-19] MEDS: HYDROCODONE/APAP (5/325) TAB PO ×3 (04:09→23:15)
[2017-12-19] MEDS: PANTOPRAZOLE (EC) 40 MG TAB PO (05:11)
[2017-12-19 06:00] LABS: ABNORMAL IP MESSAGE 1; HEMATOCRIT 24.1 % (37.0-47.0); HEMOGLOBIN 7.8 g/dl (12.0-16.0); MEAN CORPUSCULAR HEMOGLOBIN 29.7 pg (29.0-33.0); MEAN CORPUSCULAR HGB CONC 32.4 g/dl (32.0-37.0); MEAN CORPUSCULAR VOLUME 91.6 fl (82.0-101.0); MEAN PLATELET VOLUME 10.5 fl (7.4-10.4); PLATELET COUNT 153 10^3/UL (140-415); RED BLOOD COUNT 2.63 10^6/ul (4.20-5.40); RED CELL DISTRIBUTION WIDTH 18.4 % (11.5-14.5)
[2017-12-19 06:00] LABS: WHITE BLOOD COUNT 16.4 10^3/ul (4.8-10.8)
[2017-12-19 06:13] LABS: ADD MAN DIFF? YES; POSITIVE DIFF @See below
[2017-12-19 07:47] LABS: ANISOCYTOSIS 1+ (0-0); BAND NEUTROPHILS #M 0.3 10^3/ul (0.0-0.6); BAND NEUTROPHILS % (M) 2 % (0-4); EOSINOPHILS % (M) 1 % (0-7); LYMPHOCYTES #M 0.4 10^3/ul (0.8-2.9); LYMPHOCYTES % (M) 3 % (15-51); MONOCYTE #M 0.6 10^3/ul (0.3-0.9); MONOCYTES % (M) 4 % (0-11); PLATELET ESTIMATE NORMAL; POLYCHROMASIA 1+ (0-0); REACTIVE LYMPHOCYTES #M 0.1 10^3/ul (0.0-0.0); REACTIVE LYMPHOCYTES% (M) 1 % (0-0); SEG NEUT #M 14.6 10^3/ul (1.6-7.5); SEGMENTED NEUTROPHILS (M) % 89 % (39-77); SMUDGE%M 2 % (0-0)
[2017-12-19] MEDS: MULTIVITAMINS/MINERALS TAB PO (08:22)
[2017-12-19] MEDS: METOPROLOL 25 MG TAB PO ×2 (08:22→21:13)
[2017-12-19] MEDS: FERROUS SULFATE 60 MG/ML 5ML CUP PO ×2 (08:22→21:12)
[2017-12-19] MEDS: SOD CHLORIDE 0.9% 250 ML IV (15:45)
[2017-12-19 19:42] LABS: PLATELET ANTIBODY - IGA NEGATIVE (NEGATIVE); PLATELET ANTIBODY - IGG POSITIVE (NEGATIVE); PLATELET ANTIBODY - IGM NEGATIVE (NEGATIVE)
[2017-12-20] MEDS: PANTOPRAZOLE (EC) 40 MG TAB PO (05:21)
[2017-12-20 05:54] LABS: WHITE BLOOD COUNT 17.7 10^3/ul (4.8-10.8)
[2017-12-20 05:54] LABS: ABNORMAL IP MESSAGE 1; HEMATOCRIT 26.6 % (37.0-47.0); HEMOGLOBIN 8.4 g/dl (12.0-16.0); MEAN CORPUSCULAR HEMOGLOBIN 29.6 pg (29.0-33.0); MEAN CORPUSCULAR HGB CONC 31.6 g/dl (32.0-37.0); MEAN CORPUSCULAR VOLUME 93.7 fl (82.0-101.0); PLATELET COUNT 203 10^3/UL (140-415); RED BLOOD COUNT 2.84 10^6/ul (4.20-5.40); RED CELL DISTRIBUTION WIDTH 18.2 % (11.5-14.5)
[2017-12-20 06:38] LABS: POSITIVE DIFF @See below
[2017-12-20 06:39] LABS: ADD MAN DIFF? YES
[2017-12-20 09:28] LABS: ANISOCYTOSIS 1+ (0-0); BAND NEUTROPHILS % (M) 6 % (0-4); GIANT THROMBO% (M) 1 % (0-0); LYMPHOCYTES #M 0.1 10^3/ul (0.8-2.9); LYMPHOCYTES % (M) 1 % (15-51); MONOCYTES % (M) 6 % (0-11); PLATELET ESTIMATE NORMAL; POLYCHROMASIA 3+ (0-0); SEG NEUT #M 15.6 10^3/ul (1.6-7.5); SEGMENTED NEUTROPHILS (M) % 87 % (39-77); SMUDGE%M 2 % (0-0)
[2017-12-20] MEDS: MULTIVITAMINS/MINERALS TAB PO (09:48)
[2017-12-20] MEDS: FERROUS SULFATE 60 MG/ML 5ML CUP PO ×2 (09:49→21:30)
[2017-12-20] MEDS: METOPROLOL 25 MG TAB PO ×2 (09:49→21:33)
[2017-12-20] MEDS: HYDROCODONE/APAP (5/325) TAB PO ×2 (09:53→21:34)
[2017-12-20] MEDS: BENZOCAINE 10% 7 GM GEL MM (16:00)
[2017-12-20] MEDS: SOD CHLORIDE 0.9% 1,000 ML IV (16:11)
[2017-12-20] MEDS ORDERED: BENZOCAINE 20% 0.33 OZ. GEL MM (16:32)
[2017-12-20] MEDS: BENZOCAINE 20% 0.33 OZ. GEL MM (21:30)
[2017-12-21] MEDS: PANTOPRAZOLE (EC) 40 MG TAB PO (05:58)
[2017-12-21] MEDS: HYDROCODONE/APAP (5/325) TAB PO ×2 (07:02→21:33)
[2017-12-21] MEDS: BENZOCAINE 20% 0.33 OZ. GEL MM ×2 (09:00→20:53)
[2017-12-21] MEDS: MULTIVITAMINS/MINERALS TAB PO (09:07)
[2017-12-21] MEDS: FERROUS SULFATE 60 MG/ML 5ML CUP PO ×2 (09:07→20:53)
[2017-12-21] MEDS: METOPROLOL 25 MG TAB PO ×2 (09:08→20:54)
[2017-12-21 09:38] LABS: ADD MAN DIFF? NO
[2017-12-21 09:40] LABS: WHITE BLOOD COUNT 16.9 10^3/ul (4.8-10.8)
[2017-12-21 09:40] LABS: ABNORMAL IP MESSAGE 1; BASOPHIL # 0.1 10^3/ul (0.0-0.1); BASOPHILS % 0.3 % (0.0-2.0); EOSINOPHILS # 0.1 10^3/ul (0.0-0.5); EOSINOPHILS % 0.3 % (0.0-7.0); HEMATOCRIT 22.9 % (37.0-47.0); HEMOGLOBIN 7.3 g/dl (12.0-16.0); LYMPHOCYTES # 0.3 10^3/ul (0.8-2.9); LYMPHOCYTES % 1.5 % (15.0-51.0); MEAN CORPUSCULAR HEMOGLOBIN 29.9 pg (29.0-33.0); MEAN CORPUSCULAR HGB CONC 31.9 g/dl (32.0-37.0); MEAN CORPUSCULAR VOLUME 93.9 fl (82.0-101.0); MEAN PLATELET VOLUME 9.9 fl (7.4-10.4); MONOCYTES % 5.9 % (0.0-11.0); NEUTROPHIL # 15.3 10^3/ul (1.6-7.5); NEUTROPHILS % 90.4 % (39.0-77.0); PLATELET COUNT 215 10^3/UL (140-415); RED BLOOD COUNT 2.44 10^6/ul (4.20-5.40); RED CELL DISTRIBUTION WIDTH 17.8 % (11.5-14.5)
[2017-12-21 09:43] LABS: POSITIVE DIFF @See below
[2017-12-21] MEDS: SOD CHLORIDE 0.9% 250 ML IV* (18:14)
[2017-12-21 18:43] LABS: AHG CROSSMATCH 1 1
[2017-12-21 23:18] LABS: ADD UMIC YES; UR ASCORBIC ACID NEGATIVE (NEGATIVE); UR BACTERIA FEW /HPF (NONE SEEN); UR BILIRUBIN (Dip) NEGATIVE (NEGATIVE); UR BLOOD (Dip) 1+ mg/dL (NEGATIVE); UR CLARITY CLOUDY (CLEAR); UR COLOR AMBER (YELLOW); UR GLUCOSE (Dip) NEGATIVE (NEGATIVE); UR KETONES (Dip) NEGATIVE (NEGATIVE); UR LEUKOCYTE ESTERASE (Dip) NEGATIVE Leu/ul (NEGATIVE); UR MUCUS FEW /HPF (NONE SEEN); UR NITRITE (Dip) POSITIVE (NEGATIVE); UR RBC 3 /HPF (0-5); UR SPECIFIC GRAVITY (Dip) 1.017 (1.003-1.030); UR SQUAMOUS EPITHELIAL CELL FEW /HPF (FEW); UR TOTAL PROTEIN (Dip) 2+ mg/dl (NEGATIVE); UR UROBILINOGEN (Dip) NEGATIVE (NEGATIVE); UR WBC 9 /HPF (0-5)
[2017-12-22 05:39] LABS: ADD MAN DIFF? NO
[2017-12-22 05:45] LABS: WHITE BLOOD COUNT 20.3 10^3/ul (4.8-10.8)
[2017-12-22 05:45] LABS: ABNORMAL IP MESSAGE 1; BASOPHIL # 0.1 10^3/ul (0.0-0.1); BASOPHILS % 0.2 % (0.0-2.0); EOSINOPHILS % 0.2 % (0.0-7.0); HEMATOCRIT 25.6 % (37.0-47.0); HEMOGLOBIN 8.1 g/dl (12.0-16.0); LYMPHOCYTES # 0.2 10^3/ul (0.8-2.9); LYMPHOCYTES % 1.2 % (15.0-51.0); MEAN CORPUSCULAR HEMOGLOBIN 29.8 pg (29.0-33.0); MEAN CORPUSCULAR HGB CONC 31.6 g/dl (32.0-37.0); MEAN CORPUSCULAR VOLUME 94.1 fl (82.0-101.0); MEAN PLATELET VOLUME 10.1 fl (7.4-10.4); MONOCYTE # 1.1 10^3/ul (0.3-0.9); MONOCYTES % 5.6 % (0.0-11.0); NEUTROPHIL # 18.6 10^3/ul (1.6-7.5); NEUTROPHILS % 91.4 % (39.0-77.0); PLATELET COUNT 222 10^3/UL (140-415); RED BLOOD COUNT 2.72 10^6/ul (4.20-5.40); RED CELL DISTRIBUTION WIDTH 16.9 % (11.5-14.5)
[2017-12-22] MEDS: PANTOPRAZOLE (EC) 40 MG TAB PO (06:10)
[2017-12-22 06:19] LABS: POSITIVE DIFF @See below
[2017-12-22] MEDS: BENZOCAINE 20% 0.33 OZ. GEL MM ×2 (09:05→20:18)
[2017-12-22] MEDS: FERROUS SULFATE 60 MG/ML 5ML CUP PO ×2 (09:05→20:19)
[2017-12-22] MEDS: MULTIVITAMINS/MINERALS TAB PO (09:05)
[2017-12-22] MEDS: METOPROLOL 25 MG TAB PO ×2 (09:07→20:19)
[2017-12-22] MEDS: HYDROCODONE/APAP (5/325) TAB PO ×2 (09:20→20:20)
[2017-12-23 05:37] LABS: ADD MAN DIFF? NO
[2017-12-23 05:45] LABS: ABNORMAL IP MESSAGE 1; BASOPHIL # 0.1 10^3/ul (0.0-0.1); BASOPHILS % 0.3 % (0.0-2.0); EOSINOPHILS # 0.1 10^3/ul (0.0-0.5); EOSINOPHILS % 0.3 % (0.0-7.0); HEMATOCRIT 25.6 % (37.0-47.0); HEMOGLOBIN 8.1 g/dl (12.0-16.0); LYMPHOCYTES # 0.2 10^3/ul (0.8-2.9); LYMPHOCYTES % 1.1 % (15.0-51.0); MEAN CORPUSCULAR HEMOGLOBIN 29.7 pg (29.0-33.0); MEAN CORPUSCULAR HGB CONC 31.6 g/dl (32.0-37.0); MEAN CORPUSCULAR VOLUME 93.8 fl (82.0-101.0); MEAN PLATELET VOLUME 9.6 fl (7.4-10.4); MONOCYTES % 5.2 % (0.0-11.0); NEUTROPHIL # 17.5 10^3/ul (1.6-7.5); NEUTROPHILS % 91.2 % (39.0-77.0); PLATELET COUNT 280 10^3/UL (140-415); RED BLOOD COUNT 2.73 10^6/ul (4.20-5.40); RED CELL DISTRIBUTION WIDTH 17.1 % (11.5-14.5)
[2017-12-23 05:45] LABS: WHITE BLOOD COUNT 19.2 10^3/ul (4.8-10.8)
[2017-12-23 06:30] LABS: POSITIVE DIFF @See below
[2017-12-23] MEDS: PANTOPRAZOLE (EC) 40 MG TAB PO (06:34)
[2017-12-23] MEDS: FERROUS SULFATE 60 MG/ML 5ML CUP PO ×2 (08:42→20:19)
[2017-12-23] MEDS: HYDROCODONE/APAP (5/325) TAB PO ×2 (08:43→19:49)
[2017-12-23] MEDS: METOPROLOL 25 MG TAB PO ×2 (08:44→20:19)
[2017-12-23] MEDS: MULTIVITAMINS/MINERALS TAB PO (08:44)
[2017-12-23] MEDS: BENZOCAINE 20% 0.33 OZ. GEL MM ×2 (08:45→20:20)
[2017-12-23] MEDS: morphine 2 MG INJ IV ×3 (10:11→11:49)
[2017-12-23] MEDS: HYDROCODONE/APAP (7.5/325) TAB PO (11:53)
[2017-12-23 19:20] LABS: ADD UMIC YES; UR ASCORBIC ACID NEGATIVE (NEGATIVE); UR BACTERIA FEW /HPF (NONE SEEN); UR BILIRUBIN (Dip) NEGATIVE (NEGATIVE); UR BLOOD (Dip) NEGATIVE (NEGATIVE); UR CLARITY CLOUDY (CLEAR); UR COLOR AMBER (YELLOW); UR GLUCOSE (Dip) NEGATIVE (NEGATIVE); UR KETONES (Dip) NEGATIVE (NEGATIVE); UR LEUKOCYTE ESTERASE (Dip) NEGATIVE Leu/ul (NEGATIVE); UR NITRITE (Dip) NEGATIVE (NEGATIVE); UR RBC 1 /HPF (0-5); UR SQUAMOUS EPITHELIAL CELL MANY /HPF (FEW); UR TOTAL PROTEIN (Dip) 2+ mg/dl (NEGATIVE); UR UROBILINOGEN (Dip) NEGATIVE (NEGATIVE); UR WBC 8 /HPF (0-5)
[2017-12-24] MEDS: PANTOPRAZOLE (EC) 40 MG TAB PO (05:50)
[2017-12-24 06:12] LABS: ADD MAN DIFF? NO
[2017-12-24 06:16] LABS: ABNORMAL IP MESSAGE 1; BASOPHILS % 0.2 % (0.0-2.0); EOSINOPHILS # 0.1 10^3/ul (0.0-0.5); EOSINOPHILS % 0.3 % (0.0-7.0); HEMATOCRIT 23.5 % (37.0-47.0); HEMOGLOBIN 7.6 g/dl (12.0-16.0); LYMPHOCYTES # 0.3 10^3/ul (0.8-2.9); LYMPHOCYTES % 1.4 % (15.0-51.0); MEAN CORPUSCULAR HEMOGLOBIN 30.3 pg (29.0-33.0); MEAN CORPUSCULAR HGB CONC 32.3 g/dl (32.0-37.0); MEAN CORPUSCULAR VOLUME 93.6 fl (82.0-101.0); MEAN PLATELET VOLUME 9.7 fl (7.4-10.4); MONOCYTES % 5.9 % (0.0-11.0); NEUTROPHIL # 15.7 10^3/ul (1.6-7.5); NEUTROPHILS % 90.7 % (39.0-77.0); PLATELET COUNT 277 10^3/UL (140-415); RED BLOOD COUNT 2.51 10^6/ul (4.20-5.40); RED CELL DISTRIBUTION WIDTH 17.1 % (11.5-14.5)
[2017-12-24 06:16] LABS: WHITE BLOOD COUNT 17.3 10^3/ul (4.8-10.8)
[2017-12-24 06:23] LABS: POSITIVE DIFF @See below
[2017-12-24 06:50] LABS: ANION GAP 9 (8-16); BLOOD UREA NITROGEN 14 mg/dl (7-20); CALCIUM 7.6 mg/dl (8.4-10.2); CARBON DIOXIDE 24 mmol/L (21-31); CHLORIDE 108 mmol/L (97-110); CREATININE 0.59 mg/dl (0.44-1.00); GLUCOSE 92 mg/dl (70-220); POTASSIUM 3.9 mmol/L (3.5-5.1); SODIUM 137 mmol/L (135-144)
[2017-12-24] MEDS: HYDROCODONE/APAP (5/325) TAB PO ×3 (07:32→18:22)
[2017-12-24] MEDS: BENZOCAINE 20% 0.33 OZ. GEL MM ×2 (08:32→21:36)
[2017-12-24] MEDS: MULTIVITAMINS/MINERALS TAB PO (08:33)
[2017-12-24] MEDS: METOPROLOL 25 MG TAB PO ×2 (08:33→21:35)
[2017-12-24] MEDS: FERROUS SULFATE 60 MG/ML 5ML CUP PO ×2 (08:33→21:35)
[2017-12-24] MEDS: MEROPENEM 500MG/50 ML (PMX) 50 ML IVPB ×2 (13:36→21:35)
[2017-12-24] MEDS: SOD CHLORIDE 0.9% 1,000 ML IV (13:46)
[2017-12-25] MEDS: SOD CHLORIDE 0.9% 1,000 ML IV ×2 (00:38→22:10)
[2017-12-25] MEDS: HYDROCODONE/APAP (5/325) TAB PO ×3 (00:38→18:31)
[2017-12-25] MEDS: PANTOPRAZOLE (EC) 40 MG TAB PO (06:40)
[2017-12-25] MEDS: MEROPENEM 500MG/50 ML (PMX) 50 ML IVPB ×3 (06:45→22:10)
[2017-12-25] MEDS: MULTIVITAMINS/MINERALS TAB PO (08:35)
[2017-12-25] MEDS: FERROUS SULFATE 60 MG/ML 5ML CUP PO ×2 (08:35→22:10)
[2017-12-25] MEDS: METOPROLOL 25 MG TAB PO ×2 (08:36→22:11)
[2017-12-25] MEDS: BENZOCAINE 20% 0.33 OZ. GEL MM ×2 (08:37→22:14)
[2017-12-25 09:39] LABS: WHITE BLOOD COUNT 17.2 10^3/ul (4.8-10.8)
[2017-12-25 09:39] LABS: ABNORMAL IP MESSAGE 1; HEMATOCRIT 23.1 % (37.0-47.0); HEMOGLOBIN 7.3 g/dl (12.0-16.0); MEAN CORPUSCULAR HEMOGLOBIN 29.7 pg (29.0-33.0); MEAN CORPUSCULAR HGB CONC 31.6 g/dl (32.0-37.0); MEAN CORPUSCULAR VOLUME 93.9 fl (82.0-101.0); MEAN PLATELET VOLUME 9.6 fl (7.4-10.4); PLATELET COUNT 304 10^3/UL (140-415); RED BLOOD COUNT 2.46 10^6/ul (4.20-5.40)
[2017-12-25 09:42] LABS: ADD MAN DIFF? YES; POSITIVE DIFF @See below
[2017-12-25 10:13] LABS: ANISOCYTOSIS 1+ (0-0); BAND NEUTROPHILS #M 0.8 10^3/ul (0.0-0.6); BAND NEUTROPHILS % (M) 5 % (0-4); BURR CELLS 1+ (0-0); MONOCYTE #M 0.1 10^3/ul (0.3-0.9); MONOCYTES % (M) 1 % (0-11); PLATELET ESTIMATE NORMAL; POIKILOCYTOSIS 1+ (0-0); SEG NEUT #M 16.3 10^3/ul (1.6-7.5); SEGMENTED NEUTROPHILS (M) % 94 % (39-77); SMUDGE%M 4 % (0-0)
[2017-12-25] MEDS: SOD CHLORIDE 0.9% 250 ML IV* (11:31)
[2017-12-25] MEDS: DIPHENHYDRAMINE 25 MG CAP PO (12:00)
[2017-12-25] MEDS: ACETAMINOPHEN 325 MG TAB PO (12:00)
[2017-12-26] MEDS: HYDROCODONE/APAP (5/325) TAB PO ×2 (03:28→09:55)
[2017-12-26 05:53] LABS: ADD MAN DIFF? NO
[2017-12-26 06:01] LABS: ABNORMAL IP MESSAGE 1; BASOPHILS % 0.1 % (0.0-2.0); EOSINOPHILS # 0.1 10^3/ul (0.0-0.5); EOSINOPHILS % 0.4 % (0.0-7.0); HEMOGLOBIN 7.7 g/dl (12.0-16.0); LYMPHOCYTES # 0.2 10^3/ul (0.8-2.9); LYMPHOCYTES % 1.4 % (15.0-51.0); MEAN CORPUSCULAR HEMOGLOBIN 30.4 pg (29.0-33.0); MEAN CORPUSCULAR HGB CONC 32.1 g/dl (32.0-37.0); MEAN CORPUSCULAR VOLUME 94.9 fl (82.0-101.0); MEAN PLATELET VOLUME 9.6 fl (7.4-10.4); MONOCYTE # 0.9 10^3/ul (0.3-0.9); MONOCYTES % 5.4 % (0.0-11.0); NEUTROPHILS % 91.3 % (39.0-77.0); PLATELET COUNT 307 10^3/UL (140-415); RED BLOOD COUNT 2.53 10^6/ul (4.20-5.40); RED CELL DISTRIBUTION WIDTH 17.1 % (11.5-14.5)
[2017-12-26 06:01] LABS: WHITE BLOOD COUNT 16.4 10^3/ul (4.8-10.8)
[2017-12-26 06:08] LABS: POSITIVE DIFF @See below
[2017-12-26 06:13] LABS: ALANINE AMINOTRANSFERASE 55 IU/L (13-69); ALBUMIN 1.9 g/dl (3.3-4.9); ALBUMIN/GLOBULIN RATIO 0.63; ALKALINE PHOSPHATASE 234 IU/L (42-121); ANION GAP 11 (8-16); ASPARTATE AMINO TRANSFERASE 29 IU/L (15-46); BILIRUBIN,INDIRECT 0.3 mg/dl (0-1.1); BILIRUBIN,TOTAL 0.3 mg/dl (0.2-1.3); BLOOD UREA NITROGEN 15 mg/dl (7-20); CALCIUM 7.7 mg/dl (8.4-10.2); CARBON DIOXIDE 21 mmol/L (21-31); CHLORIDE 112 mmol/L (97-110); CREATININE 0.56 mg/dl (0.44-1.00); GLUCOSE 96 mg/dl (70-220); POTASSIUM 3.7 mmol/L (3.5-5.1); SODIUM 140 mmol/L (135-144); TOTAL PROTEIN 4.9 g/dl (6.1-8.1)
[2017-12-26 06:15] LABS: PHOSPHORUS 2.8 mg/dl (2.5-4.9)
[2017-12-26] MEDS: MEROPENEM 500MG/50 ML (PMX) 50 ML IVPB ×2 (06:16→22:42)
[2017-12-26] MEDS: PANTOPRAZOLE (EC) 40 MG TAB PO (06:17)
[2017-12-26] MEDS: BENZOCAINE 20% 0.33 OZ. GEL MM ×2 (09:00→20:31)
[2017-12-26] MEDS: MULTIVITAMINS/MINERALS TAB PO (09:51)
[2017-12-26] MEDS: FERROUS SULFATE 60 MG/ML 5ML CUP PO ×2 (09:51→20:19)
[2017-12-26] MEDS: METOPROLOL 25 MG TAB PO ×2 (09:51→20:19)
[2017-12-26] MEDS: ACETAMINOPHEN 325 MG TAB PO (20:19)
[2017-12-26] MEDS: SOD CHLORIDE 0.9% 1,000 ML IV (20:25)
[2017-12-26] MEDS ORDERED: VANCOMYCIN IV PER PHARMACY XX (22:30)
[2017-12-26] MEDS: VANCOMYCIN 1.25 GM in SOD CHLORIDE 0.9% 250 ML IVPB (23:17)
[2017-12-27] MEDS ORDERED: LEVOFLOXACIN 500 MG TAB PO (06:00)
[2017-12-27] MEDS: MEROPENEM 500MG/50 ML (PMX) 50 ML IVPB ×3 (06:37→22:17)
[2017-12-27 06:38] LABS: ADD MAN DIFF? NO
[2017-12-27] MEDS: PANTOPRAZOLE (EC) 40 MG TAB PO (06:38)
[2017-12-27 06:45] LABS: WHITE BLOOD COUNT 16.1 10^3/ul (4.8-10.8)
[2017-12-27 06:45] LABS: ABNORMAL IP MESSAGE 1; BASOPHILS % 0.2 % (0.0-2.0); EOSINOPHILS # 0.1 10^3/ul (0.0-0.5); EOSINOPHILS % 0.5 % (0.0-7.0); HEMATOCRIT 24.3 % (37.0-47.0); HEMOGLOBIN 7.7 g/dl (12.0-16.0); LYMPHOCYTES # 0.3 10^3/ul (0.8-2.9); LYMPHOCYTES % 1.5 % (15.0-51.0); MEAN CORPUSCULAR HEMOGLOBIN 30.3 pg (29.0-33.0); MEAN CORPUSCULAR HGB CONC 31.7 g/dl (32.0-37.0); MEAN CORPUSCULAR VOLUME 95.7 fl (82.0-101.0); MEAN PLATELET VOLUME 9.4 fl (7.4-10.4); MONOCYTE # 0.9 10^3/ul (0.3-0.9); MONOCYTES % 5.6 % (0.0-11.0); NEUTROPHIL # 14.6 10^3/ul (1.6-7.5); NEUTROPHILS % 90.6 % (39.0-77.0); PLATELET COUNT 342 10^3/UL (140-415); RED BLOOD COUNT 2.54 10^6/ul (4.20-5.40); RED CELL DISTRIBUTION WIDTH 17.2 % (11.5-14.5)
[2017-12-27 06:50] LABS: POSITIVE DIFF @See below
[2017-12-27] MEDS: HYDROCODONE/APAP (5/325) TAB PO ×2 (08:10→20:39)
[2017-12-27] MEDS: MULTIVITAMINS/MINERALS TAB PO (08:48)
[2017-12-27] MEDS: BENZOCAINE 20% 0.33 OZ. GEL MM ×2 (08:48→20:32)
[2017-12-27] MEDS: FERROUS SULFATE 60 MG/ML 5ML CUP PO ×2 (08:48→20:32)
[2017-12-27] MEDS: METOPROLOL 25 MG TAB PO ×2 (08:49→20:32)
[2017-12-27] MEDS: ENOXAPARIN 40 MG/0.4 ML SYG SC (08:54)
[2017-12-27] MEDS: VANCOMYCIN 750 MG in SOD CHLORIDE 0.9% 150 ML IVPB ×2 (13:00→23:37)
[2017-12-27] MEDS: SOD CHLORIDE 0.9% 1,000 ML IV (22:00)
[2017-12-28] MEDS: MEROPENEM 500MG/50 ML (PMX) 50 ML IVPB (05:21)
[2017-12-28] MEDS: PANTOPRAZOLE (EC) 40 MG TAB PO (05:21)
[2017-12-28] MEDS: SOD CHLORIDE 0.9% 1,000 ML IV ×3 (05:22→20:13)
[2017-12-28 06:19] LABS: ADD MAN DIFF? NO
[2017-12-28 06:33] LABS: WHITE BLOOD COUNT 16.1 10^3/ul (4.8-10.8)
[2017-12-28 06:33] LABS: ABNORMAL IP MESSAGE 1; BASOPHILS % 0.1 % (0.0-2.0); EOSINOPHILS # 0.1 10^3/ul (0.0-0.5); EOSINOPHILS % 0.6 % (0.0-7.0); HEMATOCRIT 24.9 % (37.0-47.0); HEMOGLOBIN 7.5 g/dl (12.0-16.0); LYMPHOCYTES # 0.2 10^3/ul (0.8-2.9); LYMPHOCYTES % 1.2 % (15.0-51.0); MEAN CORPUSCULAR HEMOGLOBIN 29.2 pg (29.0-33.0); MEAN CORPUSCULAR HGB CONC 30.1 g/dl (32.0-37.0); MEAN CORPUSCULAR VOLUME 96.9 fl (82.0-101.0); MEAN PLATELET VOLUME 9.5 fl (7.4-10.4); MONOCYTE # 0.8 10^3/ul (0.3-0.9); MONOCYTES % 5.2 % (0.0-11.0); NEUTROPHIL # 14.6 10^3/ul (1.6-7.5); PLATELET COUNT 329 10^3/UL (140-415); RED BLOOD COUNT 2.57 10^6/ul (4.20-5.40); RED CELL DISTRIBUTION WIDTH 17.8 % (11.5-14.5)
[2017-12-28 06:49] LABS: PHOSPHORUS 2.8 mg/dl (2.5-4.9)
[2017-12-28 06:58] LABS: ANION GAP 11 (8-16); BLOOD UREA NITROGEN 10 mg/dl (7-20); CALCIUM 7.7 mg/dl (8.4-10.2); CARBON DIOXIDE 23 mmol/L (21-31); CHLORIDE 111 mmol/L (97-110); CREATININE 0.57 mg/dl (0.44-1.00); GLUCOSE 105 mg/dl (70-220); POSITIVE DIFF @See below; POTASSIUM 3.6 mmol/L (3.5-5.1); SODIUM 141 mmol/L (135-144)
[2017-12-28] MEDS: MULTIVITAMINS/MINERALS TAB PO (08:20)
[2017-12-28] MEDS: METOPROLOL 25 MG TAB PO ×2 (08:21→20:02)
[2017-12-28] MEDS: FERROUS SULFATE 60 MG/ML 5ML CUP PO ×2 (08:21→20:00)
[2017-12-28] MEDS: BENZOCAINE 20% 0.33 OZ. GEL MM ×2 (08:21→20:02)
[2017-12-28] MEDS: ENOXAPARIN 40 MG/0.4 ML SYG SC (08:22)
[2017-12-28] MEDS: VANCOMYCIN 750 MG in SOD CHLORIDE 0.9% 150 ML IVPB (11:58)
[2017-12-28] MEDS: MEROPENEM 1 GM/50ML(PMX) 50 ML IVPB ×2 (14:10→21:36)
[2017-12-28] MEDS: HYDROCODONE/APAP (5/325) TAB PO (20:00)
[2017-12-28] MEDS: metroNIDAZOLE 500 MG/NS (PMX) 100 ML IVPB (22:46)
[2017-12-29] MEDS: metroNIDAZOLE 500 MG/NS (PMX) 100 ML IVPB ×3 (06:00→22:21)
[2017-12-29] MEDS: PANTOPRAZOLE (EC) 40 MG TAB PO (06:00)
[2017-12-29] MEDS: MEROPENEM 1 GM/50ML(PMX) 50 ML IVPB ×3 (06:00→21:10)
[2017-12-29] MEDS: METOPROLOL 25 MG TAB PO ×2 (08:39→21:09)
[2017-12-29] MEDS: MULTIVITAMINS/MINERALS TAB PO (08:39)
[2017-12-29] MEDS: FERROUS SULFATE 60 MG/ML 5ML CUP PO ×2 (08:39→21:10)
[2017-12-29] MEDS: ENOXAPARIN 40 MG/0.4 ML SYG SC (08:42)
[2017-12-29] MEDS: HYDROCODONE/APAP (5/325) TAB PO (10:18)
[2017-12-29] MEDS: SOD CHLORIDE 0.9% 1,000 ML IV (14:00)
[2017-12-29] MEDS: BENZOCAINE 20% 0.33 OZ. GEL MM ×2 (16:46→21:10)
[2017-12-30] MEDS: HYDROCODONE/APAP (5/325) TAB PO ×2 (00:51→11:16)
[2017-12-30] MEDS: PANTOPRAZOLE (EC) 40 MG TAB PO (05:30)
[2017-12-30] MEDS: metroNIDAZOLE 500 MG/NS (PMX) 100 ML IVPB ×2 (05:30→14:46)
[2017-12-30] MEDS: MEROPENEM 1 GM/50ML(PMX) 50 ML IVPB ×2 (06:34→13:30)
[2017-12-30] MEDS: MULTIVITAMINS/MINERALS TAB PO (08:16)
[2017-12-30] MEDS: FERROUS SULFATE 60 MG/ML 5ML CUP PO ×2 (08:16→21:15)
[2017-12-30] MEDS: BENZOCAINE 20% 0.33 OZ. GEL MM ×2 (08:17→21:17)
[2017-12-30] MEDS: METOPROLOL 25 MG TAB PO ×2 (08:18→21:15)
[2017-12-30] MEDS: ENOXAPARIN 40 MG/0.4 ML SYG SC (08:20)
[2017-12-30] MEDS: SOD CHLORIDE 0.9% 1,000 ML IV ×2 (10:00→18:46)
[2017-12-31] MEDS: HYDROCODONE/APAP (5/325) TAB PO ×3 (02:16→12:32)
[2017-12-31] MEDS: SOD CHLORIDE 0.9% 1,000 ML IV ×2 (06:00→17:42)
[2017-12-31] MEDS: PANTOPRAZOLE (EC) 40 MG TAB PO (06:05)
[2017-12-31] MEDS: LEVOFLOXACIN 500 MG TAB PO (06:05)
[2017-12-31] MEDS: FERROUS SULFATE 60 MG/ML 5ML CUP PO ×2 (08:23→19:49)
[2017-12-31] MEDS: MULTIVITAMINS/MINERALS TAB PO (08:23)
[2017-12-31] MEDS: METOPROLOL 25 MG TAB PO ×2 (08:24→19:49)
[2017-12-31] MEDS: BENZOCAINE 20% 0.33 OZ. GEL MM ×2 (08:25→19:49)
[2017-12-31] MEDS: ENOXAPARIN 40 MG/0.4 ML SYG SC (08:25)
[2017-12-31] MEDS: morphine LIQ (10 MG/5 ML) CUP PO (12:27)
[2017-12-31] MEDS ORDERED: ONDANSETRON 4 MG INJ IV (15:30)
[2018-01-01] MEDS: HYDROCODONE/APAP (5/325) TAB PO ×3 (00:43→21:32)
[2018-01-01] MEDS: SOD CHLORIDE 0.9% 1,000 ML IV ×2 (02:00→15:06)
[2018-01-01] MEDS: LEVOFLOXACIN 500 MG TAB PO (05:32)
[2018-01-01] MEDS: PANTOPRAZOLE (EC) 40 MG TAB PO (05:32)
[2018-01-01] MEDS: BENZOCAINE 20% 0.33 OZ. GEL MM ×2 (09:00→21:00)
[2018-01-01] MEDS: MULTIVITAMINS/MINERALS TAB PO (09:35)
[2018-01-01] MEDS: METOPROLOL 25 MG TAB PO ×2 (09:36→21:31)
[2018-01-01] MEDS: FERROUS SULFATE 60 MG/ML 5ML CUP PO ×2 (09:36→21:31)
[2018-01-01] MEDS: ENOXAPARIN 40 MG/0.4 ML SYG SC (09:37)
[2018-01-01] MEDS: FOSFOMYCIN 3 GM PACKET PO (15:16)
[2018-01-02] MEDS: HYDROCODONE/APAP (5/325) TAB PO ×2 (05:42→11:18)
[2018-01-02] MEDS: PANTOPRAZOLE (EC) 40 MG TAB PO (05:48)
[2018-01-02] MEDS: BENZOCAINE 20% 0.33 OZ. GEL MM ×2 (09:00→20:50)
[2018-01-02] MEDS: FERROUS SULFATE 60 MG/ML 5ML CUP PO ×2 (09:21→20:49)
[2018-01-02] MEDS: MULTIVITAMINS/MINERALS TAB PO (09:21)
[2018-01-02] MEDS: METOPROLOL 25 MG TAB PO ×2 (09:21→20:50)
[2018-01-02] MEDS: ENOXAPARIN 40 MG/0.4 ML SYG SC (09:23)
[2018-01-02 11:29] LABS: ADD MAN DIFF? NO
[2018-01-02 11:33] LABS: ABNORMAL IP MESSAGE 1; BASOPHILS % 0.1 % (0.0-2.0); EOSINOPHILS # 0.1 10^3/ul (0.0-0.5); EOSINOPHILS % 0.5 % (0.0-7.0); HEMOGLOBIN 7.8 g/dl (12.0-16.0); LYMPHOCYTES # 0.2 10^3/ul (0.8-2.9); MEAN CORPUSCULAR HEMOGLOBIN 30.8 pg (29.0-33.0); MEAN CORPUSCULAR HGB CONC 31.2 g/dl (32.0-37.0); MEAN CORPUSCULAR VOLUME 98.8 fl (82.0-101.0); MEAN PLATELET VOLUME 9.8 fl (7.4-10.4); MONOCYTE # 0.7 10^3/ul (0.3-0.9); MONOCYTES % 4.6 % (0.0-11.0); NEUTROPHIL # 14.8 10^3/ul (1.6-7.5); NEUTROPHILS % 92.6 % (39.0-77.0); PLATELET COUNT 279 10^3/UL (140-415); RED BLOOD COUNT 2.53 10^6/ul (4.20-5.40); RED CELL DISTRIBUTION WIDTH 17.9 % (11.5-14.5)
[2018-01-02 11:44] LABS: POSITIVE DIFF @See below
[2018-01-02] MEDS: SOD CHLORIDE 0.9% 1,000 ML IV (11:50)
[2018-01-03] MEDS: HYDROCODONE/APAP (5/325) TAB PO ×2 (03:38→13:24)
[2018-01-03] MEDS: PANTOPRAZOLE (EC) 40 MG TAB PO (05:40)
[2018-01-03] MEDS: SOD CHLORIDE 0.9% 1,000 ML IV ×2 (05:40→14:00)
[2018-01-03] MEDS: FERROUS SULFATE 60 MG/ML 5ML CUP PO ×2 (08:30→20:50)
[2018-01-03] MEDS: METOPROLOL 25 MG TAB PO ×2 (08:31→20:51)
[2018-01-03] MEDS: MULTIVITAMINS/MINERALS TAB PO (08:32)
[2018-01-03] MEDS: BENZOCAINE 20% 0.33 OZ. GEL MM ×2 (08:33→20:51)
[2018-01-03] MEDS: ENOXAPARIN 40 MG/0.4 ML SYG SC (08:53)
[2018-01-03] MEDS: SOD CHLORIDE 0.9% 500 ML IV (16:04)
[2018-01-04] MEDS: PANTOPRAZOLE (EC) 40 MG TAB PO (05:17)
[2018-01-04] MEDS: SOD CHLORIDE 0.9% 1,000 ML IV ×3 (05:21→23:07)
[2018-01-04] MEDS: HYDROCODONE/APAP (5/325) TAB PO ×2 (05:25→20:55)
[2018-01-04] MEDS: BENZOCAINE 20% 0.33 OZ. GEL MM ×2 (09:00→20:48)
[2018-01-04] MEDS: MULTIVITAMINS/MINERALS TAB PO (09:59)
[2018-01-04] MEDS: FERROUS SULFATE 60 MG/ML 5ML CUP PO ×2 (10:00→20:56)
[2018-01-04] MEDS: METOPROLOL 25 MG TAB PO ×2 (10:00→20:56)
[2018-01-04] MEDS: ENOXAPARIN 40 MG/0.4 ML SYG SC (10:02)
[2018-01-05] MEDS: HYDROCODONE/APAP (5/325) TAB PO ×2 (02:34→17:49)
[2018-01-05 03:39] LABS: ADD UMIC YES; UR ASCORBIC ACID NEGATIVE (NEGATIVE); UR BACTERIA FEW /HPF (NONE SEEN); UR BILIRUBIN (Dip) NEGATIVE (NEGATIVE); UR BLOOD (Dip) 2+ mg/dL (NEGATIVE); UR CLARITY SLIGHTLY CLOUDY (CLEAR); UR COLOR YELLOW (YELLOW); UR GLUCOSE (Dip) NEGATIVE (NEGATIVE); UR KETONES (Dip) NEGATIVE (NEGATIVE); UR LEUKOCYTE ESTERASE (Dip) 3+ Leu/ul (NEGATIVE); UR MUCUS FEW /HPF (NONE SEEN); UR NITRITE (Dip) NEGATIVE (NEGATIVE); UR RBC 18 /HPF (0-5); UR SPECIFIC GRAVITY (Dip) 1.006 (1.003-1.030); UR TOTAL PROTEIN (Dip) 2+ mg/dl (NEGATIVE); UR UROBILINOGEN (Dip) NEGATIVE (NEGATIVE); UR WBC 53 /HPF (0-5)
[2018-01-05] MEDS: SOD CHLORIDE 0.9% 1,000 ML IV (05:21)
[2018-01-05] MEDS: PANTOPRAZOLE (EC) 40 MG TAB PO (05:36)
[2018-01-05 05:54] LABS: ADD MAN DIFF? NO
[2018-01-05 05:57] LABS: ABNORMAL IP MESSAGE 1; BASOPHILS % 0.2 % (0.0-2.0); EOSINOPHILS # 0.1 10^3/ul (0.0-0.5); EOSINOPHILS % 0.6 % (0.0-7.0); HEMATOCRIT 20.4 % (37.0-47.0); LYMPHOCYTES # 0.1 10^3/ul (0.8-2.9); LYMPHOCYTES % 1.1 % (15.0-51.0); MEAN CORPUSCULAR HEMOGLOBIN 29.7 pg (29.0-33.0); MEAN CORPUSCULAR HGB CONC 30.4 g/dl (32.0-37.0); MEAN CORPUSCULAR VOLUME 97.6 fl (82.0-101.0); MEAN PLATELET VOLUME 10.3 fl (7.4-10.4); MONOCYTE # 0.8 10^3/ul (0.3-0.9); MONOCYTES % 6.6 % (0.0-11.0); NEUTROPHILS % 90.3 % (39.0-77.0); PLATELET COUNT 231 10^3/UL (140-415); RED BLOOD COUNT 2.09 10^6/ul (4.20-5.40); RED CELL DISTRIBUTION WIDTH 18.3 % (11.5-14.5)
[2018-01-05 05:57] LABS: WHITE BLOOD COUNT 12.1 10^3/ul (4.8-10.8)
[2018-01-05 06:03] LABS: HEMOGLOBIN 6.2 g/dl (12.0-16.0)
[2018-01-05 06:04] LABS: POSITIVE DIFF @See below
[2018-01-05] MEDS: FERROUS SULFATE 60 MG/ML 5ML CUP PO ×2 (08:52→21:20)
[2018-01-05] MEDS: MULTIVITAMINS/MINERALS TAB PO (08:53)
[2018-01-05] MEDS: METOPROLOL 25 MG TAB PO ×2 (08:53→21:21)
[2018-01-05] MEDS: BENZOCAINE 20% 0.33 OZ. GEL MM ×2 (09:00→21:00)
[2018-01-05] MEDS: ENOXAPARIN 40 MG/0.4 ML SYG SC (09:01)
[2018-01-05] MEDS: ACETAMINOPHEN 325 MG TAB PO (17:49)
[2018-01-05] MEDS: DIPHENHYDRAMINE 50 MG INJ IV (18:37)
[2018-01-05 18:39] LABS: AHG CROSSMATCH 1 2
[2018-01-06] MEDS: HYDROCODONE/APAP (5/325) TAB PO ×3 (00:10→22:23)
[2018-01-06] MEDS: SOD CHLORIDE 0.9% 1,000 ML IV ×2 (01:07→04:02)
[2018-01-06] MEDS: PANTOPRAZOLE (EC) 40 MG TAB PO (05:22)
[2018-01-06 05:55] LABS: ADD MAN DIFF? NO
[2018-01-06 06:11] LABS: WHITE BLOOD COUNT 12.6 10^3/ul (4.8-10.8)
[2018-01-06 06:11] LABS: ABNORMAL IP MESSAGE 1; BASOPHILS % 0.2 % (0.0-2.0); EOSINOPHILS # 0.1 10^3/ul (0.0-0.5); EOSINOPHILS % 0.6 % (0.0-7.0); HEMATOCRIT 29.6 % (37.0-47.0); HEMOGLOBIN 9.3 g/dl (12.0-16.0); LYMPHOCYTES # 0.2 10^3/ul (0.8-2.9); LYMPHOCYTES % 1.2 % (15.0-51.0); MEAN CORPUSCULAR HEMOGLOBIN 30.1 pg (29.0-33.0); MEAN CORPUSCULAR HGB CONC 31.4 g/dl (32.0-37.0); MEAN CORPUSCULAR VOLUME 95.8 fl (82.0-101.0); MEAN PLATELET VOLUME 10.2 fl (7.4-10.4); MONOCYTE # 0.8 10^3/ul (0.3-0.9); MONOCYTES % 6.6 % (0.0-11.0); NEUTROPHIL # 11.4 10^3/ul (1.6-7.5); NEUTROPHILS % 90.5 % (39.0-77.0); PLATELET COUNT 229 10^3/UL (140-415); RED BLOOD COUNT 3.09 10^6/ul (4.20-5.40); RED CELL DISTRIBUTION WIDTH 17.6 % (11.5-14.5)
[2018-01-06 06:23] LABS: POSITIVE DIFF @See below
[2018-01-06] MEDS: FERROUS SULFATE 60 MG/ML 5ML CUP PO ×2 (08:39→20:23)
[2018-01-06] MEDS: METOPROLOL 25 MG TAB PO ×2 (08:39→20:24)
[2018-01-06] MEDS: MULTIVITAMINS/MINERALS TAB PO (08:39)
[2018-01-06] MEDS: ENOXAPARIN 40 MG/0.4 ML SYG SC (08:42)
[2018-01-06] MEDS: BENZOCAINE 20% 0.33 OZ. GEL MM ×2 (08:45→20:25)
[2018-01-06] MEDS: FUROSEMIDE 20 MG INJ IV (14:13)
[2018-01-07] MEDS: HYDROCODONE/APAP (5/325) TAB PO ×2 (04:14→11:31)
[2018-01-07 05:40] LABS: ADD MAN DIFF? NO
[2018-01-07 05:48] LABS: WHITE BLOOD COUNT 11.5 10^3/ul (4.8-10.8)
[2018-01-07 05:48] LABS: ABNORMAL IP MESSAGE 1; BASOPHILS % 0.2 % (0.0-2.0); EOSINOPHILS # 0.1 10^3/ul (0.0-0.5); EOSINOPHILS % 0.8 % (0.0-7.0); HEMATOCRIT 29.7 % (37.0-47.0); HEMOGLOBIN 9.4 g/dl (12.0-16.0); LYMPHOCYTES # 0.1 10^3/ul (0.8-2.9); LYMPHOCYTES % 1.1 % (15.0-51.0); MEAN CORPUSCULAR HEMOGLOBIN 29.8 pg (29.0-33.0); MEAN CORPUSCULAR HGB CONC 31.6 g/dl (32.0-37.0); MEAN CORPUSCULAR VOLUME 94.3 fl (82.0-101.0); MEAN PLATELET VOLUME 10.1 fl (7.4-10.4); MONOCYTE # 0.7 10^3/ul (0.3-0.9); MONOCYTES % 6.3 % (0.0-11.0); NEUTROPHIL # 10.4 10^3/ul (1.6-7.5); NEUTROPHILS % 90.5 % (39.0-77.0); PLATELET COUNT 257 10^3/UL (140-415); RED BLOOD COUNT 3.15 10^6/ul (4.20-5.40); RED CELL DISTRIBUTION WIDTH 17.7 % (11.5-14.5)
[2018-01-07] MEDS: PANTOPRAZOLE (EC) 40 MG TAB PO (05:56)
[2018-01-07 06:32] LABS: ALANINE AMINOTRANSFERASE 43 IU/L (13-69); ALKALINE PHOSPHATASE 114 IU/L (42-121); ASPARTATE AMINO TRANSFERASE 18 IU/L (15-46); BILIRUBIN,INDIRECT 0.4 mg/dl (0-1.1); BILIRUBIN,TOTAL 0.4 mg/dl (0.2-1.3)
[2018-01-07 06:41] LABS: MAGNESIUM 1.9 mg/dl (1.7-2.5)
[2018-01-07 06:41] LABS: PHOSPHORUS 3.2 mg/dl (2.5-4.9)
[2018-01-07 07:06] LABS: POSITIVE DIFF @See below
[2018-01-07 07:09] LABS: ANION GAP 7 (8-16)
[2018-01-07 07:15] LABS: BLOOD UREA NITROGEN 6 mg/dl (7-20); CARBON DIOXIDE 27 mmol/L (21-31); CHLORIDE 109 mmol/L (97-110); CREATININE 0.54 mg/dl (0.44-1.00); GLUCOSE 88 mg/dl (70-220); POTASSIUM 3.6 mmol/L (3.5-5.1); SODIUM 139 mmol/L (135-144)
[2018-01-07] MEDS: FERROUS SULFATE 60 MG/ML 5ML CUP PO ×2 (08:55→21:06)
[2018-01-07] MEDS: BENZOCAINE 20% 0.33 OZ. GEL MM ×2 (08:55→21:12)
[2018-01-07] MEDS: MULTIVITAMINS/MINERALS TAB PO (08:56)
[2018-01-07] MEDS: METOPROLOL 25 MG TAB PO ×2 (08:56→21:07)
[2018-01-07] MEDS: FUROSEMIDE 20 MG INJ IV (08:57)
[2018-01-07] MEDS: ENOXAPARIN 40 MG/0.4 ML SYG SC (08:59)
[2018-01-07] MEDS ORDERED: VANCOMYCIN IV PER PHARMACY XX (11:00)
[2018-01-07] MEDS: MEROPENEM 500MG/50 ML (PMX) 50 ML IVPB ×2 (14:03→21:06)
[2018-01-07] MEDS: VANCOMYCIN 1.25 GM in SOD CHLORIDE 0.9% 250 ML IVPB (15:05)
[2018-01-08] MEDS: VANCOMYCIN 750 MG in SOD CHLORIDE 0.9% 150 ML IVPB ×2 (00:39→14:54)
[2018-01-08] MEDS: HYDROCODONE/APAP (5/325) TAB PO ×2 (00:45→11:16)
[2018-01-08] MEDS: MEROPENEM 500MG/50 ML (PMX) 50 ML IVPB ×3 (05:53→21:47)
[2018-01-08] MEDS: PANTOPRAZOLE (EC) 40 MG TAB PO (05:54)
[2018-01-08] MEDS: BENZOCAINE 20% 0.33 OZ. GEL MM ×2 (09:00→20:25)
[2018-01-08] MEDS: FUROSEMIDE 20 MG INJ IV (09:31)
[2018-01-08] MEDS: METOPROLOL 25 MG TAB PO (09:31)
[2018-01-08] MEDS: FERROUS SULFATE 60 MG/ML 5ML CUP PO ×2 (09:32→20:23)
[2018-01-08] MEDS: MULTIVITAMINS/MINERALS TAB PO (09:32)
[2018-01-08] MEDS: ENOXAPARIN 40 MG/0.4 ML SYG SC (09:35)
[2018-01-08] MEDS: METOPROLOL 50 MG TAB PO (20:24)
[2018-01-09 02:00] LABS: VANCOMYCIN,TROUGH 11.7 ug/ml (10.0-20.0)
[2018-01-09] MEDS: VANCOMYCIN 1 GM 250 ML IVPB ×2 (02:27→15:01)
[2018-01-09] MEDS: HYDROCODONE/APAP (5/325) TAB PO ×2 (02:27→11:13)
[2018-01-09 06:10] LABS: CREATININE 0.57 mg/dl (0.44-1.00)
[2018-01-09 06:10] LABS: BLOOD UREA NITROGEN 6 mg/dl (7-20)
[2018-01-09] MEDS: MEROPENEM 500MG/50 ML (PMX) 50 ML IVPB ×3 (06:16→21:45)
[2018-01-09] MEDS: PANTOPRAZOLE (EC) 40 MG TAB PO (06:16)
[2018-01-09] MEDS: BENZOCAINE 20% 0.33 OZ. GEL MM ×2 (09:00→21:00)
[2018-01-09] MEDS: MULTIVITAMINS/MINERALS TAB PO (09:46)
[2018-01-09] MEDS: FERROUS SULFATE 60 MG/ML 5ML CUP PO ×2 (09:46→21:45)
[2018-01-09] MEDS: METOPROLOL 50 MG TAB PO ×2 (09:47→21:46)
[2018-01-09] MEDS: FUROSEMIDE 20 MG INJ IV (09:47)
[2018-01-09] MEDS: ENOXAPARIN 40 MG/0.4 ML SYG SC (09:49)
[2018-01-09] MEDS: LOSARTAN 25 MG TAB PO (15:01)
[2018-01-10] MEDS: HYDROCODONE/APAP (5/325) TAB PO ×2 (01:40→13:37)
[2018-01-10] MEDS: VANCOMYCIN 1 GM 250 ML IVPB ×3 (02:28→17:19)
[2018-01-10] MEDS: MEROPENEM 500MG/50 ML (PMX) 50 ML IVPB ×3 (06:27→23:10)
[2018-01-10] MEDS: PANTOPRAZOLE (EC) 40 MG TAB PO (06:27)
[2018-01-10 06:49] LABS: ADD MAN DIFF? NO
[2018-01-10 06:53] LABS: ABNORMAL IP MESSAGE 1; BASOPHILS % 0.2 % (0.0-2.0); EOSINOPHILS # 0.2 10^3/ul (0.0-0.5); EOSINOPHILS % 1.7 % (0.0-7.0); HEMATOCRIT 26.2 % (37.0-47.0); HEMOGLOBIN 8.1 g/dl (12.0-16.0); LYMPHOCYTES # 0.1 10^3/ul (0.8-2.9); LYMPHOCYTES % 1.6 % (15.0-51.0); MEAN CORPUSCULAR HGB CONC 30.9 g/dl (32.0-37.0); MEAN PLATELET VOLUME 10.4 fl (7.4-10.4); MONOCYTE # 0.7 10^3/ul (0.3-0.9); MONOCYTES % 8.5 % (0.0-11.0); NEUTROPHIL # 7.5 10^3/ul (1.6-7.5); NEUTROPHILS % 86.7 % (39.0-77.0); PLATELET COUNT 232 10^3/UL (140-415); RED CELL DISTRIBUTION WIDTH 17.6 % (11.5-14.5)
[2018-01-10 06:53] LABS: WHITE BLOOD COUNT 8.6 10^3/ul (4.8-10.8)
[2018-01-10 07:03] LABS: POSITIVE DIFF @See below
[2018-01-10] MEDS: LOSARTAN 25 MG TAB PO (08:18)
[2018-01-10] MEDS: FERROUS SULFATE 60 MG/ML 5ML CUP PO ×2 (08:18→20:15)
[2018-01-10] MEDS: METOPROLOL 50 MG TAB PO ×2 (08:18→20:15)
[2018-01-10] MEDS: FUROSEMIDE 20 MG INJ IV (08:19)
[2018-01-10] MEDS: MULTIVITAMINS/MINERALS TAB PO (08:19)
[2018-01-10] MEDS: BENZOCAINE 20% 0.33 OZ. GEL MM ×2 (08:20→20:18)
[2018-01-10] MEDS: ENOXAPARIN 40 MG/0.4 ML SYG SC (08:22)
[2018-01-10] MEDS: AMLODIPINE 5 MG TAB PO (13:21)
[2018-01-11] MEDS: HYDROCODONE/APAP (5/325) TAB PO ×2 (00:58→14:39)
[2018-01-11] MEDS: VANCOMYCIN 1 GM 250 ML IVPB ×2 (04:34→17:45)
[2018-01-11] MEDS: PANTOPRAZOLE (EC) 40 MG TAB PO (05:22)
[2018-01-11] MEDS: MEROPENEM 500MG/50 ML (PMX) 50 ML IVPB ×3 (06:52→21:04)
[2018-01-11] MEDS: BENZOCAINE 20% 0.33 OZ. GEL MM ×2 (09:00→21:00)
[2018-01-11] MEDS: AMLODIPINE 5 MG TAB PO (09:29)
[2018-01-11] MEDS: LOSARTAN 25 MG TAB PO (09:29)
[2018-01-11] MEDS: MULTIVITAMINS/MINERALS TAB PO (09:29)
[2018-01-11] MEDS: FERROUS SULFATE 60 MG/ML 5ML CUP PO ×2 (09:29→21:03)
[2018-01-11] MEDS: METOPROLOL 50 MG TAB PO ×2 (09:29→21:04)
[2018-01-11] MEDS: FUROSEMIDE 20 MG INJ IV (09:30)
[2018-01-11] MEDS: ENOXAPARIN 40 MG/0.4 ML SYG SC (09:31)
[2018-01-12] MEDS: HYDROCODONE/APAP (5/325) TAB PO ×3 (01:04→21:36)
[2018-01-12 05:01] LABS: CREATININE 0.49 mg/dl (0.44-1.00)
[2018-01-12 05:01] LABS: BLOOD UREA NITROGEN 8 mg/dl (7-20)
[2018-01-12 05:19] LABS: VANCOMYCIN,TROUGH 18.3 ug/ml (10.0-20.0)
[2018-01-12] MEDS: VANCOMYCIN 1 GM 250 ML IVPB (05:59)
[2018-01-12] MEDS: PANTOPRAZOLE (EC) 40 MG TAB PO (06:21)
[2018-01-12] MEDS: LOSARTAN 25 MG TAB PO (08:55)
[2018-01-12] MEDS: MULTIVITAMINS/MINERALS TAB PO (08:55)
[2018-01-12] MEDS: AMLODIPINE 5 MG TAB PO (08:55)
[2018-01-12] MEDS: MEROPENEM 500MG/50 ML (PMX) 50 ML IVPB ×3 (08:55→21:13)
[2018-01-12] MEDS: METOPROLOL 50 MG TAB PO ×2 (08:55→21:14)
[2018-01-12] MEDS: FUROSEMIDE 20 MG INJ IV (08:56)
[2018-01-12] MEDS: FERROUS SULFATE 60 MG/ML 5ML CUP PO ×2 (08:56→21:13)
[2018-01-12] MEDS: BENZOCAINE 20% 0.33 OZ. GEL MM ×3 (09:00→21:12)
[2018-01-12] MEDS: ENOXAPARIN 40 MG/0.4 ML SYG SC (14:25)
[2018-01-12] MEDS: VANCOMYCIN 750 MG in SOD CHLORIDE 0.9% 150 ML IVPB (18:57)
[2018-01-13] MEDS: VANCOMYCIN 750 MG in SOD CHLORIDE 0.9% 150 ML IVPB ×2 (05:39→17:25)
[2018-01-13 05:49] LABS: ADD MAN DIFF? NO
[2018-01-13 05:51] LABS: ABNORMAL IP MESSAGE 1; BASOPHILS % 0.2 % (0.0-2.0); EOSINOPHILS # 0.2 10^3/ul (0.0-0.5); EOSINOPHILS % 2.4 % (0.0-7.0); HEMATOCRIT 27.4 % (37.0-47.0); HEMOGLOBIN 8.3 g/dl (12.0-16.0); LYMPHOCYTES # 0.1 10^3/ul (0.8-2.9); LYMPHOCYTES % 1.1 % (15.0-51.0); MEAN CORPUSCULAR HEMOGLOBIN 29.6 pg (29.0-33.0); MEAN CORPUSCULAR HGB CONC 30.3 g/dl (32.0-37.0); MEAN CORPUSCULAR VOLUME 97.9 fl (82.0-101.0); MEAN PLATELET VOLUME 10.3 fl (7.4-10.4); MONOCYTE # 0.6 10^3/ul (0.3-0.9); MONOCYTES % 7.2 % (0.0-11.0); NEUTROPHIL # 7.2 10^3/ul (1.6-7.5); NEUTROPHILS % 88.1 % (39.0-77.0); PLATELET COUNT 232 10^3/UL (140-415); RED CELL DISTRIBUTION WIDTH 17.3 % (11.5-14.5)
[2018-01-13 05:51] LABS: WHITE BLOOD COUNT 8.2 10^3/ul (4.8-10.8)
[2018-01-13] MEDS: PANTOPRAZOLE (EC) 40 MG TAB PO (05:56)
[2018-01-13] MEDS: FUROSEMIDE 20 MG INJ IV ×2 (05:56→17:31)
[2018-01-13 05:59] LABS: POSITIVE DIFF @See below
[2018-01-13 06:15] LABS: ALANINE AMINOTRANSFERASE 34 IU/L (13-69); ALBUMIN 2.4 g/dl (3.3-4.9); ALKALINE PHOSPHATASE 110 IU/L (42-121); ANION GAP 9 (8-16); ASPARTATE AMINO TRANSFERASE 23 IU/L (15-46); BILIRUBIN,INDIRECT 0.3 mg/dl (0-1.1); BILIRUBIN,TOTAL 0.3 mg/dl (0.2-1.3); BLOOD UREA NITROGEN 8 mg/dl (7-20); CARBON DIOXIDE 30 mmol/L (21-31); CHLORIDE 103 mmol/L (97-110); CREATININE 0.54 mg/dl (0.44-1.00); GLUCOSE 99 mg/dl (70-220); POTASSIUM 3.8 mmol/L (3.5-5.1); SODIUM 138 mmol/L (135-144); TOTAL PROTEIN 5.8 g/dl (6.1-8.1)
[2018-01-13] MEDS: MEROPENEM 500MG/50 ML (PMX) 50 ML IVPB ×4 (06:49→21:09)
[2018-01-13] MEDS: HYDROCODONE/APAP (5/325) TAB PO ×2 (06:50→20:25)
[2018-01-13] MEDS: FERROUS SULFATE 60 MG/ML 5ML CUP PO ×2 (08:10→20:27)
[2018-01-13] MEDS: AMLODIPINE 5 MG TAB PO (08:11)
[2018-01-13] MEDS: MULTIVITAMINS/MINERALS TAB PO (08:11)
[2018-01-13] MEDS: BENZOCAINE 20% 0.33 OZ. GEL MM ×2 (08:11→20:27)
[2018-01-13] MEDS: METOPROLOL 50 MG TAB PO ×2 (08:11→20:27)
[2018-01-13] MEDS: LOSARTAN 25 MG TAB PO (08:11)
[2018-01-13] MEDS: ENOXAPARIN 40 MG/0.4 ML SYG SC (08:42)
[2018-01-14 04:32] LABS: VANCOMYCIN,TROUGH 16.7 ug/ml (10.0-20.0)
[2018-01-14] MEDS: VANCOMYCIN 750 MG in SOD CHLORIDE 0.9% 150 ML IVPB (04:51)
[2018-01-14] MEDS: FUROSEMIDE 20 MG INJ IV ×2 (05:48→17:42)
[2018-01-14] MEDS: PANTOPRAZOLE (EC) 40 MG TAB PO (05:48)
[2018-01-14] MEDS: HYDROCODONE/APAP (5/325) TAB PO ×3 (06:26→23:29)
[2018-01-14] MEDS: MEROPENEM 500MG/50 ML (PMX) 50 ML IVPB ×3 (07:01→22:22)
[2018-01-14] MEDS: METOPROLOL 50 MG TAB PO ×2 (08:34→21:16)
[2018-01-14] MEDS: FERROUS SULFATE 60 MG/ML 5ML CUP PO ×2 (08:34→21:17)
[2018-01-14] MEDS: LOSARTAN 25 MG TAB PO (08:34)
[2018-01-14] MEDS: MULTIVITAMINS/MINERALS TAB PO (08:34)
[2018-01-14] MEDS: AMLODIPINE 5 MG TAB PO (08:35)
[2018-01-14] MEDS: ENOXAPARIN 40 MG/0.4 ML SYG SC (08:36)
[2018-01-14] MEDS: BENZOCAINE 20% 0.33 OZ. GEL MM ×2 (08:36→21:17)
[2018-01-14] MEDS: VANCOMYCIN 500MG/NS (PMX) 100 ML IVPB (17:42)
[2018-01-15] MEDS: VANCOMYCIN 500MG/NS (PMX) 100 ML IVPB ×2 (05:07→17:49)
[2018-01-15] MEDS: PANTOPRAZOLE (EC) 40 MG TAB PO (06:21)
[2018-01-15] MEDS: FUROSEMIDE 20 MG INJ IV ×2 (06:21→17:25)
[2018-01-15] MEDS: MEROPENEM 500MG/50 ML (PMX) 50 ML IVPB ×3 (06:27→22:32)
[2018-01-15 07:51] LABS: BLOOD UREA NITROGEN 10 mg/dl (7-20)
[2018-01-15] MEDS: BENZOCAINE 20% 0.33 OZ. GEL MM ×3 (09:00→21:06)
[2018-01-15] MEDS: FERROUS SULFATE 60 MG/ML 5ML CUP PO ×2 (09:02→21:05)
[2018-01-15] MEDS: METOPROLOL 50 MG TAB PO ×2 (09:02→21:06)
[2018-01-15] MEDS: LOSARTAN 25 MG TAB PO (09:03)
[2018-01-15] MEDS: AMLODIPINE 5 MG TAB PO (09:03)
[2018-01-15] MEDS: MULTIVITAMINS/MINERALS TAB PO (09:03)
[2018-01-15] MEDS: ENOXAPARIN 40 MG/0.4 ML SYG SC (09:09)
[2018-01-15 11:32] LABS: ADD MAN DIFF? NO
[2018-01-15 11:35] LABS: ABNORMAL IP MESSAGE 1; BASOPHILS % 0.2 % (0.0-2.0); EOSINOPHILS # 0.2 10^3/ul (0.0-0.5); EOSINOPHILS % 1.6 % (0.0-7.0); HEMATOCRIT 24.6 % (37.0-47.0); HEMOGLOBIN 7.5 g/dl (12.0-16.0); LYMPHOCYTES # 0.2 10^3/ul (0.8-2.9); LYMPHOCYTES % 1.7 % (15.0-51.0); MEAN CORPUSCULAR HEMOGLOBIN 29.3 pg (29.0-33.0); MEAN CORPUSCULAR HGB CONC 30.5 g/dl (32.0-37.0); MEAN CORPUSCULAR VOLUME 96.1 fl (82.0-101.0); MEAN PLATELET VOLUME 9.9 fl (7.4-10.4); MONOCYTE # 0.8 10^3/ul (0.3-0.9); NEUTROPHILS % 86.6 % (39.0-77.0); PLATELET COUNT 236 10^3/UL (140-415); RED BLOOD COUNT 2.56 10^6/ul (4.20-5.40); RED CELL DISTRIBUTION WIDTH 17.9 % (11.5-14.5)
[2018-01-15 11:35] LABS: WHITE BLOOD COUNT 9.2 10^3/ul (4.8-10.8)
[2018-01-15 11:37] LABS: POSITIVE DIFF @See below
[2018-01-15] MEDS: ACETAMINOPHEN 325 MG TAB PO (17:25)
[2018-01-15] MEDS: HYDROCODONE/APAP (5/325) TAB PO (21:10)
[2018-01-16] MEDS: VANCOMYCIN 500MG/NS (PMX) 100 ML IVPB ×2 (05:00→17:26)
[2018-01-16 05:30] LABS: ADD MAN DIFF? NO
[2018-01-16 05:36] LABS: WHITE BLOOD COUNT 13.9 10^3/ul (4.8-10.8)
[2018-01-16 05:36] LABS: ABNORMAL IP MESSAGE 1; BASOPHIL # 0.1 10^3/ul (0.0-0.1); BASOPHILS % 0.4 % (0.0-2.0); EOSINOPHILS # 0.3 10^3/ul (0.0-0.5); EOSINOPHILS % 1.9 % (0.0-7.0); HEMATOCRIT 29.6 % (37.0-47.0); HEMOGLOBIN 9.2 g/dl (12.0-16.0); LYMPHOCYTES # 0.1 10^3/ul (0.8-2.9); LYMPHOCYTES % 0.6 % (15.0-51.0); MEAN CORPUSCULAR HEMOGLOBIN 30.3 pg (29.0-33.0); MEAN CORPUSCULAR HGB CONC 31.1 g/dl (32.0-37.0); MEAN CORPUSCULAR VOLUME 97.4 fl (82.0-101.0); MEAN PLATELET VOLUME 10.1 fl (7.4-10.4); MONOCYTE # 0.8 10^3/ul (0.3-0.9); MONOCYTES % 5.9 % (0.0-11.0); NEUTROPHIL # 12.6 10^3/ul (1.6-7.5); NEUTROPHILS % 90.3 % (39.0-77.0); PLATELET COUNT 294 10^3/UL (140-415); RED BLOOD COUNT 3.04 10^6/ul (4.20-5.40); RED CELL DISTRIBUTION WIDTH 17.7 % (11.5-14.5)
[2018-01-16 06:02] LABS: POSITIVE DIFF @See below
[2018-01-16 06:09] LABS: ANION GAP 11 (8-16); BLOOD UREA NITROGEN 10 mg/dl (7-20); CALCIUM 8.3 mg/dl (8.4-10.2); CARBON DIOXIDE 29 mmol/L (21-31); CHLORIDE 102 mmol/L (97-110); CREATININE 0.49 mg/dl (0.44-1.00); GLUCOSE 106 mg/dl (70-220); POTASSIUM 4.4 mmol/L (3.5-5.1); SODIUM 138 mmol/L (135-144)
[2018-01-16] MEDS: MEROPENEM 500MG/50 ML (PMX) 50 ML IVPB ×3 (06:24→21:26)
[2018-01-16] MEDS: PANTOPRAZOLE (EC) 40 MG TAB PO (06:24)
[2018-01-16] MEDS: FUROSEMIDE 20 MG INJ IV (06:25)
[2018-01-16] MEDS: AMLODIPINE 5 MG TAB PO (10:04)
[2018-01-16] MEDS: METOPROLOL 50 MG TAB PO ×2 (10:04→21:26)
[2018-01-16] MEDS: FERROUS SULFATE 60 MG/ML 5ML CUP PO ×2 (10:05→21:26)
[2018-01-16] MEDS: LOSARTAN 25 MG TAB PO (10:05)
[2018-01-16] MEDS: MULTIVITAMINS/MINERALS TAB PO (10:05)
[2018-01-16] MEDS: ENOXAPARIN 40 MG/0.4 ML SYG SC (10:07)
[2018-01-16] MEDS: BENZOCAINE 20% 0.33 OZ. GEL MM ×2 (10:10→21:27)
[2018-01-16] MEDS: ACETAMINOPHEN 325 MG TAB PO (10:45)
[2018-01-16 16:25] LABS: ADD UMIC YES; UR ASCORBIC ACID NEGATIVE (NEGATIVE); UR BILIRUBIN (Dip) NEGATIVE (NEGATIVE); UR BLOOD (Dip) NEGATIVE (NEGATIVE); UR CLARITY SLIGHTLY CLOUDY (CLEAR); UR COLOR AMBER (YELLOW); UR GLUCOSE (Dip) NEGATIVE (NEGATIVE); UR KETONES (Dip) NEGATIVE (NEGATIVE); UR LEUKOCYTE ESTERASE (Dip) TRACE Leu/ul (NEGATIVE); UR NITRITE (Dip) NEGATIVE (NEGATIVE); UR RBC 2 /HPF (0-5); UR SPECIFIC GRAVITY (Dip) 1.018 (1.003-1.030); UR TOTAL PROTEIN (Dip) 2+ mg/dl (NEGATIVE); UR UROBILINOGEN (Dip) NEGATIVE (NEGATIVE); UR WBC 3 /HPF (0-5)
[2018-01-16 17:07] LABS: VANCOMYCIN,TROUGH 12.2 ug/ml (10.0-20.0)
[2018-01-17] MEDS: VANCOMYCIN 500MG/NS (PMX) 100 ML IVPB (05:10)
[2018-01-17 05:31] LABS: ADD MAN DIFF? NO
[2018-01-17 05:37] LABS: ABNORMAL IP MESSAGE 1; BASOPHILS % 0.1 % (0.0-2.0); EOSINOPHILS # 0.2 10^3/ul (0.0-0.5); EOSINOPHILS % 2.8 % (0.0-7.0); HEMATOCRIT 24.4 % (37.0-47.0); HEMOGLOBIN 7.5 g/dl (12.0-16.0); LYMPHOCYTES # 0.3 10^3/ul (0.8-2.9); LYMPHOCYTES % 3.6 % (15.0-51.0); MEAN CORPUSCULAR HEMOGLOBIN 29.4 pg (29.0-33.0); MEAN CORPUSCULAR HGB CONC 30.7 g/dl (32.0-37.0); MEAN CORPUSCULAR VOLUME 95.7 fl (82.0-101.0); MEAN PLATELET VOLUME 10.3 fl (7.4-10.4); MONOCYTE # 0.6 10^3/ul (0.3-0.9); MONOCYTES % 8.1 % (0.0-11.0); NEUTROPHIL # 6.3 10^3/ul (1.6-7.5); NEUTROPHILS % 84.6 % (39.0-77.0); PLATELET COUNT 252 10^3/UL (140-415); RED BLOOD COUNT 2.55 10^6/ul (4.20-5.40); RED CELL DISTRIBUTION WIDTH 17.7 % (11.5-14.5)
[2018-01-17 05:37] LABS: WHITE BLOOD COUNT 7.5 10^3/ul (4.8-10.8)
[2018-01-17 05:48] LABS: POSITIVE DIFF @See below
[2018-01-17 05:50] LABS: ANION GAP 7 (8-16); BLOOD UREA NITROGEN 9 mg/dl (7-20); CALCIUM 7.9 mg/dl (8.4-10.2); CARBON DIOXIDE 29 mmol/L (21-31); CHLORIDE 105 mmol/L (97-110); CREATININE 0.37 mg/dl (0.44-1.00); GLUCOSE 100 mg/dl (70-220); POTASSIUM 3.2 mmol/L (3.5-5.1); SODIUM 138 mmol/L (135-144)
[2018-01-17] MEDS: FUROSEMIDE 20 MG TAB PO (06:46)
[2018-01-17] MEDS: PANTOPRAZOLE (EC) 40 MG TAB PO (06:46)
[2018-01-17] MEDS: MEROPENEM 500MG/50 ML (PMX) 50 ML IVPB ×3 (06:46→21:34)
[2018-01-17] MEDS: AMLODIPINE 5 MG TAB PO (08:20)
[2018-01-17] MEDS: LOSARTAN 25 MG TAB PO (08:23)
[2018-01-17] MEDS: MULTIVITAMINS/MINERALS TAB PO (08:23)
[2018-01-17] MEDS: METOPROLOL 50 MG TAB PO ×2 (08:23→21:32)
[2018-01-17] MEDS: FERROUS SULFATE 60 MG/ML 5ML CUP PO ×2 (08:24→21:33)
[2018-01-17] MEDS: BENZOCAINE 20% 0.33 OZ. GEL MM ×2 (08:27→21:34)
[2018-01-17] MEDS: ENOXAPARIN 40 MG/0.4 ML SYG SC (08:29)
[2018-01-17] MEDS: POTASSIUM CHLORIDE (SR) 20 MEQ TAB PO (09:32)
[2018-01-17] MEDS: ZYVOX 600 MG TAB PO ×2 (12:31→21:33)
[2018-01-17] MEDS: BALSAM PERU/CASTOR OIL 60 GM TUBE TOP (21:34)
[2018-01-18] MEDS: PANTOPRAZOLE (EC) 40 MG TAB PO (05:48)
[2018-01-18] MEDS: MEROPENEM 500MG/50 ML (PMX) 50 ML IVPB ×3 (05:48→21:40)
[2018-01-18 05:49] LABS: ADD MAN DIFF? NO
[2018-01-18 05:50] LABS: ABNORMAL IP MESSAGE 1; BASOPHILS % 0.3 % (0.0-2.0); EOSINOPHILS # 0.3 10^3/ul (0.0-0.5); EOSINOPHILS % 3.6 % (0.0-7.0); HEMOGLOBIN 7.6 g/dl (12.0-16.0); LYMPHOCYTES # 0.2 10^3/ul (0.8-2.9); LYMPHOCYTES % 3.4 % (15.0-51.0); MEAN CORPUSCULAR HEMOGLOBIN 29.7 pg (29.0-33.0); MEAN CORPUSCULAR HGB CONC 30.4 g/dl (32.0-37.0); MEAN CORPUSCULAR VOLUME 97.7 fl (82.0-101.0); MEAN PLATELET VOLUME 10.1 fl (7.4-10.4); MONOCYTE # 0.6 10^3/ul (0.3-0.9); MONOCYTES % 8.1 % (0.0-11.0); NEUTROPHIL # 5.9 10^3/ul (1.6-7.5); NEUTROPHILS % 83.9 % (39.0-77.0); PLATELET COUNT 275 10^3/UL (140-415); RED BLOOD COUNT 2.56 10^6/ul (4.20-5.40); RED CELL DISTRIBUTION WIDTH 17.5 % (11.5-14.5)
[2018-01-18] MEDS: FUROSEMIDE 20 MG TAB PO (05:50)
[2018-01-18 05:58] LABS: POSITIVE DIFF @See below
[2018-01-18 06:17] LABS: ANION GAP 9 (8-16); BLOOD UREA NITROGEN 9 mg/dl (7-20); CALCIUM 8.1 mg/dl (8.4-10.2); CARBON DIOXIDE 26 mmol/L (21-31); CHLORIDE 104 mmol/L (97-110); CREATININE 0.48 mg/dl (0.44-1.00); GLUCOSE 97 mg/dl (70-220); POTASSIUM 4.1 mmol/L (3.5-5.1); SODIUM 135 mmol/L (135-144)
[2018-01-18] MEDS: FERROUS SULFATE 60 MG/ML 5ML CUP PO ×2 (08:11→20:42)
[2018-01-18] MEDS: ZYVOX 600 MG TAB PO ×2 (08:11→20:42)
[2018-01-18] MEDS: LOSARTAN 25 MG TAB PO (08:11)
[2018-01-18] MEDS: MULTIVITAMINS/MINERALS TAB PO (08:12)
[2018-01-18] MEDS: METOPROLOL 50 MG TAB PO ×2 (08:12→20:42)
[2018-01-18] MEDS: AMLODIPINE 5 MG TAB PO (08:12)
[2018-01-18] MEDS: BALSAM PERU/CASTOR OIL 60 GM TUBE TOP ×2 (08:13→20:43)
[2018-01-18] MEDS: BENZOCAINE 20% 0.33 OZ. GEL MM ×2 (08:13→20:43)
[2018-01-18] MEDS: ENOXAPARIN 40 MG/0.4 ML SYG SC (08:13)
[2018-01-19] MEDS: MEROPENEM 500MG/50 ML (PMX) 50 ML IVPB (05:39)
[2018-01-19] MEDS: PANTOPRAZOLE (EC) 40 MG TAB PO (05:39)
[2018-01-19] MEDS: FUROSEMIDE 20 MG TAB PO (05:40)
[2018-01-19 05:48] LABS: ADD MAN DIFF? NO
[2018-01-19 05:51] LABS: WHITE BLOOD COUNT 7.3 10^3/ul (4.8-10.8)
[2018-01-19 05:51] LABS: ABNORMAL IP MESSAGE 1; BASOPHILS % 0.4 % (0.0-2.0); EOSINOPHILS # 0.3 10^3/ul (0.0-0.5); EOSINOPHILS % 3.8 % (0.0-7.0); HEMATOCRIT 24.6 % (37.0-47.0); HEMOGLOBIN 7.7 g/dl (12.0-16.0); LYMPHOCYTES # 0.3 10^3/ul (0.8-2.9); LYMPHOCYTES % 3.8 % (15.0-51.0); MEAN CORPUSCULAR HEMOGLOBIN 30.1 pg (29.0-33.0); MEAN CORPUSCULAR HGB CONC 31.3 g/dl (32.0-37.0); MEAN CORPUSCULAR VOLUME 96.1 fl (82.0-101.0); MEAN PLATELET VOLUME 10.4 fl (7.4-10.4); MONOCYTE # 0.5 10^3/ul (0.3-0.9); MONOCYTES % 7.1 % (0.0-11.0); NEUTROPHIL # 6.2 10^3/ul (1.6-7.5); NEUTROPHILS % 83.9 % (39.0-77.0); PLATELET COUNT 268 10^3/UL (140-415); RED BLOOD COUNT 2.56 10^6/ul (4.20-5.40); RED CELL DISTRIBUTION WIDTH 17.3 % (11.5-14.5)
[2018-01-19 06:19] LABS: POSITIVE DIFF @See below
[2018-01-19] MEDS: FERROUS SULFATE 60 MG/ML 5ML CUP PO ×2 (08:55→21:27)
[2018-01-19] MEDS: MULTIVITAMINS/MINERALS TAB PO (08:55)
[2018-01-19] MEDS: BENZOCAINE 20% 0.33 OZ. GEL MM ×2 (08:55→21:28)
[2018-01-19] MEDS: BALSAM PERU/CASTOR OIL 60 GM TUBE TOP ×2 (08:55→21:28)
[2018-01-19] MEDS: LOSARTAN 25 MG TAB PO (08:56)
[2018-01-19] MEDS: AMLODIPINE 5 MG TAB PO (08:56)
[2018-01-19] MEDS: ZYVOX 600 MG TAB PO ×2 (08:56→21:27)
[2018-01-19] MEDS: METOPROLOL 50 MG TAB PO ×2 (08:56→21:28)
[2018-01-19] MEDS: ENOXAPARIN 40 MG/0.4 ML SYG SC (09:31)
[2018-01-20] MEDS: FUROSEMIDE 20 MG TAB PO (05:10)
[2018-01-20] MEDS: PANTOPRAZOLE (EC) 40 MG TAB PO (05:10)
[2018-01-20] MEDS: BENZOCAINE 20% 0.33 OZ. GEL MM ×2 (08:32→20:41)
[2018-01-20] MEDS: BALSAM PERU/CASTOR OIL 60 GM TUBE TOP ×2 (08:32→20:41)
[2018-01-20] MEDS: LOSARTAN 25 MG TAB PO (08:33)
[2018-01-20] MEDS: ZYVOX 600 MG TAB PO ×2 (08:33→20:37)
[2018-01-20] MEDS: FERROUS SULFATE 60 MG/ML 5ML CUP PO ×2 (08:33→20:37)
[2018-01-20] MEDS: MULTIVITAMINS/MINERALS TAB PO (08:33)
[2018-01-20] MEDS: METOPROLOL 50 MG TAB PO ×2 (08:34→20:37)
[2018-01-20] MEDS: AMLODIPINE 5 MG TAB PO (08:34)
[2018-01-20] MEDS: ENOXAPARIN 40 MG/0.4 ML SYG SC (08:37)
[2018-01-20] MEDS: CALCIUM CARBONATE 1.25 GM TAB PO ×2 (11:55→20:37)
[2018-01-21] MEDS: FUROSEMIDE 20 MG TAB PO (05:37)
[2018-01-21] MEDS: PANTOPRAZOLE (EC) 40 MG TAB PO (05:37)
[2018-01-21] MEDS: METOPROLOL 50 MG TAB PO ×2 (10:11→20:27)
[2018-01-21] MEDS: CALCIUM CARBONATE 1.25 GM TAB PO ×2 (10:11→20:26)
[2018-01-21] MEDS: LOSARTAN 25 MG TAB PO (10:11)
[2018-01-21] MEDS: ZYVOX 600 MG TAB PO ×2 (10:11→20:26)
[2018-01-21] MEDS: AMLODIPINE 5 MG TAB PO (10:12)
[2018-01-21] MEDS: BENZOCAINE 20% 0.33 OZ. GEL MM ×2 (10:12→21:00)
[2018-01-21] MEDS: BALSAM PERU/CASTOR OIL 60 GM TUBE TOP ×2 (10:12→21:00)
[2018-01-21] MEDS: FERROUS SULFATE 60 MG/ML 5ML CUP PO ×2 (10:18→20:26)
[2018-01-21] MEDS: MULTIVITAMINS/MINERALS TAB PO (10:18)
[2018-01-21] MEDS: ENOXAPARIN 40 MG/0.4 ML SYG SC (10:18)
[2018-01-21 11:11] LABS: HEMATOCRIT 25.9 % (37.0-47.0); HEMOGLOBIN 8.1 g/dl (12.0-16.0)
[2018-01-22] MEDS: PANTOPRAZOLE (EC) 40 MG TAB PO (05:31)
[2018-01-22] MEDS: FUROSEMIDE 20 MG TAB PO (05:31)
[2018-01-22] MEDS ORDERED: BENZOCAINE 20% 0.33 OZ. GEL MM (07:32)
[2018-01-22] MEDS: LOSARTAN 25 MG TAB PO (09:27)
[2018-01-22] MEDS: FERROUS SULFATE 60 MG/ML 5ML CUP PO ×2 (09:27→20:15)
[2018-01-22] MEDS: BENZOCAINE 20% 0.33 OZ. GEL MM ×2 (09:27→20:18)
[2018-01-22] MEDS: MULTIVITAMINS/MINERALS TAB PO (09:28)
[2018-01-22] MEDS: CALCIUM CARBONATE 1.25 GM TAB PO ×2 (09:28→20:15)
[2018-01-22] MEDS: AMLODIPINE 5 MG TAB PO (09:28)
[2018-01-22] MEDS: ZYVOX 600 MG TAB PO ×2 (09:28→20:15)
[2018-01-22] MEDS: METOPROLOL 50 MG TAB PO ×2 (09:28→20:16)
[2018-01-22] MEDS: BALSAM PERU/CASTOR OIL 60 GM TUBE TOP ×2 (09:29→20:18)
[2018-01-22] MEDS: ENOXAPARIN 40 MG/0.4 ML SYG SC (10:33)
[2018-01-23] MEDS: PANTOPRAZOLE (EC) 40 MG TAB PO (06:14)
[2018-01-23] MEDS: FERROUS SULFATE 60 MG/ML 5ML CUP PO (08:27)
[2018-01-23] MEDS: MULTIVITAMINS/MINERALS TAB PO (08:28)
[2018-01-23] MEDS: METOPROLOL 50 MG TAB PO (08:28)
[2018-01-23] MEDS: LOSARTAN 25 MG TAB PO (08:28)
[2018-01-23] MEDS: ZYVOX 600 MG TAB PO ×2 (08:28→14:11)
[2018-01-23] MEDS: BENZOCAINE 20% 0.33 OZ. GEL MM (08:29)
[2018-01-23] MEDS: CALCIUM CARBONATE 1.25 GM TAB PO (08:29)
[2018-01-23] MEDS: AMLODIPINE 5 MG TAB PO (08:29)
[2018-01-23] MEDS: BALSAM PERU/CASTOR OIL 60 GM TUBE TOP (08:30)
[2018-01-23] MEDS: ENOXAPARIN 40 MG/0.4 ML SYG SC (08:31)
== END 2018-01-23 14:50 | DRG 698 ==
LOC: MS2 12-13 14:50 → 2NE 01-21 11:01 → E/R 23:56 → MS4 11-27 18:43 → MS3 11-25 02:05
PROC: 0JBC3ZX Excision of Pelvic Region Subcutaneous Tissue and Fascia, Percutaneous Approach, Diagnostic (ICD-10-PCS; principal; 2017-11-27)
PROC: 30233N1 Transfusion of Nonautologous Red Blood Cells into Peripheral Vein, Percutaneous Approach (ICD-10-PCS; 2017-11-29)
DX: T83.512A Infection and inflammatory reaction due to nephrostomy catheter, initial encounter (principal); A41.9 Sepsis, unspecified organism; E43 Unspecified severe protein-calorie malnutrition; J18.9 Pneumonia, unspecified organism; K92.1 Melena; N39.0 Urinary tract infection, site not specified; E87.2 Acidosis; N17.9 Acute kidney failure, unspecified; C79.89 Secondary malignant neoplasm of other specified sites; C78.5 Secondary malignant neoplasm of large intestine and rectum; I82.511 Chronic embolism and thrombosis of right femoral vein; N13.1 Hydronephrosis with ureteral stricture, not elsewhere classified; B96.1 Klebsiella pneumoniae [K. pneumoniae] as the cause of diseases classified elsewhere; B95.2 Enterococcus as the cause of diseases classified elsewhere; C53.9 Malignant neoplasm of cervix uteri, unspecified; D69.6 Thrombocytopenia, unspecified; D63.0 Anemia in neoplastic disease; D63.8 Anemia in other chronic diseases classified elsewhere; I10 Essential (primary) hypertension; K76.0 Fatty (change of) liver, not elsewhere classified; K44.9 Diaphragmatic hernia without obstruction or gangrene; R10.2 Pelvic and perineal pain; R31.9 Hematuria, unspecified; R60.0 Localized edema; R00.0 Tachycardia, unspecified; Z68.24 Body mass index [BMI] 24.0-24.9, adult; Z16.21 Resistance to vancomycin; Z85.42 Personal history of malignant neoplasm of other parts of uterus; Z79.01 Long term (current) use of anticoagulants
CPT/HCPCS: 36415; 36430; 71045; 73700; 74018; 74176; 76705; 77012; 77014; 77290; 77334; 77412; 80048; 80053; 80076; 80202; 81001; 82270; 82378; 82565; 82962; 83605; 83735; 84100; 84132; 84484; 84520; 85014; 85018; 85025; 85384; 85610; 85730; 86022; 86301; 86644; 86850; 86900; 86901; 86920; 87040; 87045; 87070; 87075; 87081; 87086; 88307; 88313; 88341; 88342; 93005; 96365; 96375; 97110; 97116; 97162; 97530; 99291-25

== ENCOUNTER 2018-04-15 09:42 | Emergency (ER) | payer OTHER ==
[2018-04-15 11:07] LABS: ADD MAN DIFF? NO
[2018-04-15 11:09] LABS: WHITE BLOOD COUNT 2.8 10^3/ul (4.8-10.8)
[2018-04-15 11:09] LABS: ABNORMAL IP MESSAGE 1; BASOPHILS % 0.4 % (0.0-2.0); EOSINOPHILS % 1.5 % (0.0-7.0); HEMATOCRIT 35.6 % (37.0-47.0); HEMOGLOBIN 11.7 g/dl (12.0-16.0); LYMPHOCYTES # 0.4 10^3/ul (0.8-2.9); LYMPHOCYTES % 12.7 % (15.0-51.0); MEAN CORPUSCULAR HEMOGLOBIN 33.1 pg (29.0-33.0); MEAN CORPUSCULAR HGB CONC 32.9 g/dl (32.0-37.0); MEAN CORPUSCULAR VOLUME 100.8 fl (82.0-101.0); MEAN PLATELET VOLUME 8.7 fl (7.4-10.4); MONOCYTE # 0.4 10^3/ul (0.3-0.9); MONOCYTES % 13.8 % (0.0-11.0); NEUTROPHILS % 70.9 % (39.0-77.0); PLATELET COUNT 258 10^3/UL (140-415); RED BLOOD COUNT 3.53 10^6/ul (4.20-5.40); RED CELL DISTRIBUTION WIDTH 12.4 % (11.5-14.5)
[2018-04-15 11:39] LABS: ALANINE AMINOTRANSFERASE 10 IU/L (13-69); ALBUMIN 3.8 g/dl (3.3-4.9); ALBUMIN/GLOBULIN RATIO 1.15; ALKALINE PHOSPHATASE 96 IU/L (42-121); ANION GAP 8 (5-13); ASPARTATE AMINO TRANSFERASE 17 IU/L (15-46); BILIRUBIN,INDIRECT 0.1 mg/dl (0-1.1); BILIRUBIN,TOTAL 0.1 mg/dl (0.2-1.3); BLOOD UREA NITROGEN 24 mg/dl (7-20); CALCIUM 9.2 mg/dl (8.4-10.2); CARBON DIOXIDE 28 mmol/L (21-31); CHLORIDE 107 mmol/L (97-110); CREATININE 0.65 mg/dl (0.44-1.00); GLUCOSE 86 mg/dl (70-220); POTASSIUM 4.1 mmol/L (3.5-5.1); SODIUM 143 mmol/L (135-144); TOTAL PROTEIN 7.1 g/dl (6.1-8.1)
[2018-04-15 11:50] LABS: TROPONIN-I < 0.012 ng/ml (0.000-0.120)
== END 2018-04-15 13:40 | disposition home or self-care (01) ==
LOC: E/R 09:42
DX: I10 Essential (primary) hypertension (principal); C53.9 Malignant neoplasm of cervix uteri, unspecified; R40.2142 Coma scale, eyes open, spontaneous, at arrival to emergency department; R40.2252 Coma scale, best verbal response, oriented, at arrival to emergency department; R40.2362 Coma scale, best motor response, obeys commands, at arrival to emergency department
CPT/HCPCS: 36415; 71045; 80053; 84484; 85025; 93005; 99285-25

== ENCOUNTER → 2018-10-03 | Outpatient (CLI) | payer OTHER ==
[~2018-10-03] MED LIST: IOHEXOL 300MG/ML 30 ML BTL
== END | disposition home or self-care (01) ==
LOC: RAD 15:04
DX: N13.30 Unspecified hydronephrosis (principal)
CPT/HCPCS: 74425

== ENCOUNTER 2018-10-17 10:05 | Day surgery (SDC) | payer OTHER ==
[~2018-10-17 10:05] MED LIST changes: -IOHEXOL 300MG/ML 30 ML BTL; +SOD CHLORIDE 0.9% 1,000 ML IV
[2018-10-17] MEDS ORDERED: PROPOFOL 20 ML (12:48)
[2018-10-17] MEDS ORDERED: MIDAZOLAM 1 MG/ML 2 ML INJ (12:48)
[2018-10-17] MEDS ORDERED: FENTAnyl 50 MCG/ML VIAL (12:48)
[2018-10-17] MEDS ORDERED: ONDANSETRON 4 MG INJ (12:50)
[2018-10-17] MEDS ORDERED: CEFAZOLIN 1 GM INJ (12:50)
[2018-10-17] MEDS ORDERED: EPHEDrine SULFATE 50 MG/5 ML SYG IV (13:00)
[2018-10-17] MEDS ORDERED: DIPHENHYDRAMINE 50 MG INJ IV (13:00)
[2018-10-17] MEDS ORDERED: ONDANSETRON 4 MG INJ IV (13:00)
[2018-10-17] MEDS ORDERED: OXYCODONE/ACETAMINOPHEN (5/325) TAB PO (13:00)
[2018-10-17] MEDS ORDERED: ALBUTEROL 0.083% (NEB) 2.5 MG/3 ML AMP HHN (13:00)
[2018-10-17] MEDS ORDERED: HYDROmorphONE 1 MG/5 ML IV SYRINGE IV ×3 (13:00)
[2018-10-17] MEDS ORDERED: IPRATROPIUM (NEB) 0.5 MG/2.5 ML AMP HHN (13:00)
[2018-10-17] MEDS ORDERED: TRIMETHOBENZAMIDE 100 MG/ML VIAL IM (13:00)
[2018-10-17] MEDS ORDERED: MIDAZOLAM 1 MG/ML 2 ML INJ IV (13:00)
[2018-10-17] MEDS ORDERED: hydrALAzine 20 MG INJ IV (13:00)
[2018-10-17] MEDS ORDERED: MEPERIDINE 25 MG INJ IV (13:00)
[2018-10-17] MEDS ORDERED: FENTAnyl 50 MCG/ML VIAL IV ×3 (13:00)
[2018-10-17] MEDS ORDERED: LABETALOL HCL 20MG INJ IV (13:00)
[2018-10-17] MEDS ORDERED: IOHEXOL 300MG/ML 30 ML BTL (14:30)
[2018-10-17] MEDS: LIDOCAINE 1% (MPF) 30 ML INJ (14:30)
[2018-10-17] MEDS ORDERED: hydrALAzine 20 MG INJ (14:58)
[2018-10-17] MEDS: OXYCODONE/ACETAMINOPHEN (5/325) TAB PO (15:58)
== END 2018-10-17 17:12 | disposition home or self-care (01) ==
LOC: SDS 10:05
DX: N13.30 Unspecified hydronephrosis (principal); I10 Essential (primary) hypertension
CPT/HCPCS: 50435; 74475